=== PATIENT | female | born 1960 | race Caucasian/White ===

== ENCOUNTER → 2019-11-07 09:53 | Outpatient (BNVA) | payer BC, SELFPAY | PROVIDERS: Family Provider Electrodiagnostic Medicine; PCP Electrodiagnostic Medicine; Referring Provider Internal Medicine Rheumatology; Visit Provider Internal Medicine Rheumatology | DX: M05.79 Rheumatoid arthritis with rheumatoid factor of multiple sites without organ or systems involvement (principal) | CPT/HCPCS: 80053; 85025 ==

== ENCOUNTER 2019-12-19 13:53 | Outpatient (CLI) | payer BC, SELFPAY ==
--- NOTE | 2019-12-19 14:45 | XR_ITS ---
WS: [id number] SCREENING DEXA SCAN [employer] CLINICAL INFORMATION: post menopausal osteoporosis COMPARISON: FINDINGS: The L1-L4 bone mineral density measures 0.967 g/cm2. This corresponds to a T score score of -1.8 and Z score of -0.2. Left femoral neck bone mineral density measures 0.774 g/cm2. This corresponds to a T score of -1.9 an d Z score of -0.6. Right femoral neck bone mineral density measures 0.850 g/cm2. This corresponds to a T score -1.2of an d Z score of 0.0. Mean femoral neck bone mineral density measures 0.812 g/cm2. This corresponds to a T score of -1.5 an d Z score of -0.3. XR/XR DEXA axial skeleton* [id number] IMPRESSION: Osteopenia Patient's FRAX calculated 10 year probability for major osteoporotic fracture i s 11.2 % and osteoporotic hip fracture is 2.5%. Bone mineral density in the lumbar spine has decreased -10.3% and -3.4% in the femoral necks since 2016
== END 2019-12-19 13:54 | disposition home or self-care (01) ==
LOC: RADWPI 13:56
PROVIDERS: Family Provider Electrodiagnostic Medicine; PCP Electrodiagnostic Medicine; Visit Provider Internal Medicine Rheumatology
DX: M81.0 Age-related osteoporosis without current pathological fracture (principal)
CPT/HCPCS: 77080

== ENCOUNTER → 2019-12-26 11:33 | Outpatient (BNVA) | payer BC, SELFPAY | PROVIDERS: Family Provider Electrodiagnostic Medicine; PCP Electrodiagnostic Medicine; Referring Provider Internal Medicine Rheumatology; Visit Provider Internal Medicine Rheumatology | DX: M05.79 Rheumatoid arthritis with rheumatoid factor of multiple sites without organ or systems involvement (principal); R25.2 Cramp and spasm; Z79.899 Other long term (current) drug therapy; Z79.52 Long term (current) use of systemic steroids; M81.0 Age-related osteoporosis without current pathological fracture | CPT/HCPCS: 36415; 82310; 83735; 99214 ==

== ENCOUNTER → 2020-02-21 13:47 | Outpatient (BNVA) | payer BC, SELFPAY | PROVIDERS: Family Provider Electrodiagnostic Medicine; PCP Electrodiagnostic Medicine; Visit Provider Internal Medicine Rheumatology | DX: Z79.899 Other long term (current) drug therapy (principal); M05.9 Rheumatoid arthritis with rheumatoid factor, unspecified | CPT/HCPCS: 36415; 80076; 82565; 85025; 85651; 86140 ==

== ENCOUNTER → 2020-04-04 12:52 | Outpatient (BNVA) | payer BC, SELFPAY | PROVIDERS: Family Provider Electrodiagnostic Medicine; PCP Electrodiagnostic Medicine; Visit Provider Internal Medicine Rheumatology | DX: Z79.899 Other long term (current) drug therapy (principal) | CPT/HCPCS: 36415; 80076; 82565; 85025; 85651; 86140 ==

== ENCOUNTER → 2020-06-28 09:09 | Outpatient (BNVA) | payer BC, SELFPAY | PROVIDERS: Family Provider Electrodiagnostic Medicine; PCP Electrodiagnostic Medicine; Visit Provider Internal Medicine Rheumatology | DX: M05.79 Rheumatoid arthritis with rheumatoid factor of multiple sites without organ or systems involvement (principal); Z79.899 Other long term (current) drug therapy; M81.0 Age-related osteoporosis without current pathological fracture; F17.210 Nicotine dependence, cigarettes, uncomplicated | CPT/HCPCS: 99214 ==

== ENCOUNTER 2020-08-20 14:13 | Outpatient (CLI) | payer BC, SELFPAY ==
--- NOTE | 2020-08-20 14:20 | MM_ITS ---
WS: [id number] BILATERAL DIGITAL SCREENING MAMMOGRAM WITH CAD CLINICAL INFORMATION: SCREENING HISTORY: Screening mammogram. No current complaints. COMPARISON: September 08, 2018 TECHNIQUE: Bilateral CC and MLO views. FINDINGS: Fatty-replaced breasts bilaterally. No suspicious focal mass, asymmetry, calcifications, or information systems architect ural distortion. No evidence of malignancy. MM/[id number] IMPRESSION: BI-RADS: 1-Negative FOLLOW UP: 1 Year Follow-up Recommend return to annual screening mammography.
== END 2020-08-20 14:14 | disposition home or self-care (01) ==
LOC: RADSHAW 14:18
PROVIDERS: PCP Electrodiagnostic Medicine; Visit Provider Electrodiagnostic Medicine
DX: Z12.31 Encounter for screening mammogram for malignant neoplasm of breast (principal)
CPT/HCPCS: 77067

== ENCOUNTER → 2020-08-28 09:01 | Outpatient (BNVA) | payer BC, SELFPAY | PROVIDERS: Family Provider Electrodiagnostic Medicine; PCP Electrodiagnostic Medicine; Visit Provider Internal Medicine Rheumatology | DX: Z79.899 Other long term (current) drug therapy (principal); Z11.1 Encounter for screening for respiratory tuberculosis | CPT/HCPCS: 36415; 80076; 82565; 85025; 85651; 86140; 86480 ==

== ENCOUNTER → 2020-10-03 08:50 | Outpatient (BNVA) | payer BC, SELFPAY | PROVIDERS: Family Provider Electrodiagnostic Medicine; PCP Electrodiagnostic Medicine; Visit Provider Internal Medicine Rheumatology | DX: M05.79 Rheumatoid arthritis with rheumatoid factor of multiple sites without organ or systems involvement (principal); M81.0 Age-related osteoporosis without current pathological fracture; Z79.899 Other long term (current) drug therapy; F17.210 Nicotine dependence, cigarettes, uncomplicated | CPT/HCPCS: 99214 ==

== ENCOUNTER → 2021-01-15 12:06 | Outpatient (BNVA) | payer OTHER, SELFPAY | PROVIDERS: Family Provider Electrodiagnostic Medicine; PCP Electrodiagnostic Medicine; Visit Provider Internal Medicine Rheumatology | DX: Z79.899 Other long term (current) drug therapy (principal) | CPT/HCPCS: 36415; 80076; 82565; 85025; 86140 ==

== ENCOUNTER → 2021-02-13 09:03 | Outpatient (BNVA) | payer OTHER, SELFPAY | PROVIDERS: Family Provider Electrodiagnostic Medicine; PCP Electrodiagnostic Medicine; Visit Provider Internal Medicine Rheumatology | DX: M05.79 Rheumatoid arthritis with rheumatoid factor of multiple sites without organ or systems involvement (principal); Z79.899 Other long term (current) drug therapy; M81.0 Age-related osteoporosis without current pathological fracture; F17.210 Nicotine dependence, cigarettes, uncomplicated | CPT/HCPCS: 99214 ==

== ENCOUNTER → 2021-05-28 09:22 | Outpatient (BNVA) | payer OTHER, SELFPAY | PROVIDERS: Family Provider Electrodiagnostic Medicine; PCP Electrodiagnostic Medicine; Visit Provider Internal Medicine Rheumatology | DX: M05.79 Rheumatoid arthritis with rheumatoid factor of multiple sites without organ or systems involvement (principal); Z79.899 Other long term (current) drug therapy | CPT/HCPCS: 36415; 80076; 82565; 85025; 86140 ==

== ENCOUNTER → 2021-06-04 08:49 | Outpatient (BNVA) | payer OTHER, SELFPAY | PROVIDERS: Family Provider Electrodiagnostic Medicine; PCP Electrodiagnostic Medicine; Visit Provider Internal Medicine Rheumatology | DX: M05.79 Rheumatoid arthritis with rheumatoid factor of multiple sites without organ or systems involvement (principal); M81.0 Age-related osteoporosis without current pathological fracture; Z79.899 Other long term (current) drug therapy; Z71.89 Other specified counseling; F17.210 Nicotine dependence, cigarettes, uncomplicated | CPT/HCPCS: 99214 ==

== ENCOUNTER → 2021-10-02 09:18 | Outpatient (BNVA) | payer OTHER, SELFPAY | PROVIDERS: Family Provider Electrodiagnostic Medicine; PCP Electrodiagnostic Medicine; Visit Provider Internal Medicine Rheumatology | DX: M05.79 Rheumatoid arthritis with rheumatoid factor of multiple sites without organ or systems involvement (principal); M19.90 Unspecified osteoarthritis, unspecified site; Z79.899 Other long term (current) drug therapy | CPT/HCPCS: 36415; 80076; 82565; 85025; 86140 ==

== ENCOUNTER 2021-10-09 14:24 | Outpatient (CLI) | payer OTHER, SELFPAY ==
--- NOTE | 2021-10-09 14:29 | MM_ITS ---
WS: [id number] BILATERAL DIGITAL SCREENING MAMMOGRAM WITH CAD CLINICAL INFORMATION: SCREENING HISTORY: Screening mammogram. No current complaints. COMPARISON: None. TECHNIQUE: Bilateral CC and MLO views. FINDINGS: Fatty-replaced breasts bilaterally. No suspicious focal mass, asymmetry, calcifications, or computer systems software architect ural distortion. No evidence of malignancy. MM/[id number] IMPRESSION: BI-RADS: 1-Negative FOLLOW UP: 1 Year Follow-up Recommend return to annual screening mammography.
== END 2021-10-09 14:25 | disposition home or self-care (01) ==
LOC: RADSHAW 14:27
PROVIDERS: PCP Electrodiagnostic Medicine; Visit Provider Electrodiagnostic Medicine
DX: Z12.31 Encounter for screening mammogram for malignant neoplasm of breast (principal)
CPT/HCPCS: 77067

== ENCOUNTER 2022-09-07 08:11 | Emergency (ER) | payer OTHER, SELFPAY ==
[2022-09-07 08:21] VITALS: BMI 21.6
[2022-09-07 08:25] VITALS: BP 139/65; PULSE 91; RESP 18; TEMP 36.8; O2SAT 97
--- NOTE | 2022-09-07 08:45 | W.ED.SKABFB ---
HPI - Skin/Abscess/Foreign Bdy General: Chief complaint: Skin/Abscess/Foreign Body Stated complaint: back of Head sore, weakness, hx of RA Time Seen by Provider: 09/07/22 08:28 Source: patient Mode of arrival: ambulatory Limitations: no limitations History of Present Illness: 62-year-old female presents to the ER today for painful rash on her face and in her hair on the right side times several days. Patient reports she started getting soreness on the right side of her head about a week or so ago. She noticed what she thought were bites that appeared on Thursday. Patient reports she was then seen at an urgent care and given a steroid shot yesterday. Patient reports she had no improvement in her symptoms. Patient reports she has significant tenderness in her face and behind her right ear. She reports her scalp hurts. She reports she is got several new lesions. Patient reports a history of RA and thought maybe this was an RA flareup. She reports she has had her shingles vaccine but does take Humira and was told she is more prone to things like that. Patient reports no fever or chills. Denies any recent illnesses. Review of Systems General: Reports: 10 or more systems reviewed and unremarkable except in HPI and below PFSH ED PFSH: Medical History High risk medication use Immunization counseling Leg cramps Osteoporosis Other detention (current) drug therapy Rheumatoid arthritis with rheumatoid factor Seropositive rheumatoid arthritis of multiple sites Surgical History History of hysterectomy Family History Other Arthritis Denies family history of Rheumatoid arthritis Lupus Social History Smoking and tobacco status: never smoked History of recent travel: No Physical Exam Const: COMMON NORMALS: no acute distress, average body habitus, patient oriented x3, no limitations, healthy appearing, alert and well nourished HENMT: COMMON NORMALS: external ears normal, TM's normal bilaterally, Normal nasal mucous membranes and turbinates present and moist oral mucous membranes HEAD & SCALP: scalp lesion (Blisterlike lesion noted superior to the right ear on the scalp.) and scalp tenderness FACE & SINUS: erythema on the right and other (Vesicular lesions noted along the mandible on the right side and neck on th) NOSE: Normal nasal mucous membranes and turbinates present EXTERNAL EAR: Yes external ears normal TYMPANIC MEMBRANE: TM's normal bilaterally Lymph: LYMPHATIC: no lymphadenopathy noted Resp: COMMON NORMALS: normal respiratory effort EFFORT & INSPECTION: Yes able to speak in complete sentences Cardio: COMMON NORMALS: regular rate and regular rhythm RATE: regular rate RHYTHM: regular rhythm Extremity: COMMON NORMALS: normal to inspection and full ROM Neuro: COMMON NORMALS: patient oriented x3 SENSORIUM/ORIENTATION: Yes alert Psych: COMMON NORMALS: mental status grossly normal, Normal thought process present and cooperative THOUGHT PROCESS: Normal thought process present Skin: NARRATIVE SKIN EXAM: See head/face exam. Patient has vesicular lesions, some at different stages than others. Some are starting to scab over others are newer, tender, and open. Course ED course: Patient presents for a painful rash on the right side of her head for the last several days. Patient reports pain started up to a week or so ago. Patient appears to have lesions on the right side of the face and into the right side of the scalp. Patient also has several lesions on the neck and right shoulder. Rash is consistent with shingles. Vital Signs: Vital signs: Vital Signs Temperature 98.3 F 09/07/22 08:25 Pulse Rate 91 09/07/22 08:25 Respiratory Rate 18 09/07/22 08:25 Blood Pressure 139/65 09/07/22 08:25 Pulse Oximetry 97 09/07/22 08:25 Oxygen Delivery Me thod 09/07/22 08:25 MDM - Skin/Abscess/Foreign Bdy Medicial Decision Making Based on history and physical exam, patient appears to have a shingles outbreak. Patient has had the Shingrix shot however is on Humira and immunocompromised due to that. Patient's rash is consistent with a shingles rash along with the symptoms she is having of pain. Patient is outside the treatment window for acyclovir or any antivirals at this time. She has had the rash more than 4 days and the pain up to a week. We will go ahead and try to treat the pain with gabapentin as patient does appear uncomfortable. Patient was also given a steroid shot at urgent care. I discussed the course and duration of this virus with patient. I would recommend she follow-up with her PCP this week sometime. For worsening symptoms return to the ER. I did discuss with patient that if this goes to the ear or eyes she deftly needs to follow-up with primary care. Patient verbalized understanding and was in agreement with the treatment plan. Critical Care Time Critical Care Time: Critical Care Time: No Discharge Plan Discharge Patient Disposition: Home Clinical Impression: Shingles rash Qualifiers: Herpes zoster complications: without complications Qualified Code(s): B02.9 - Zoster without complications Condition: Stable Prescriptions: New gabapentin 100 mg capsule 100 mg PO Q8H 14 Days Qty: 42 0RF No Action Restasis MultiDose 0.05 % drops 1 drop ophthalmic (eye) Q12H citalopram 10 mg tablet 10 mg PO DAILY alprazolam 0.25 mg tablet 0.25 mg PO TID cholecalciferol (vitamin D3) 50 mcg (2,000 unit) capsule 50 mcg PO DAILY Qty: 30 3RF methotrexate sodium 2.5 mg tablet 10 mg PO .weekly Qty: 20 3RF prednisone 10 mg tablet See Rx Instructions PO .COMPLEX PRN (Reason: joint pain) Qty: 30 1RF Rx Instructions: take 1 tab daily for 3-7 days prn RA flare PO PRN; Humira Pen 40 mg/0.8 mL pen injector kit 40 mg SUBCUT Q14D Qty: 2 3RF folic acid 1 mg tablet 3 mg PO DAILY Qty: 90 3RF Magic Mouthwash PO Rx Instructions: take 1-2 tsp orally and swish and spit prn QID Sent to [facility] Discharge Orders: Discharge ED (Routine); Ordered 09/07/22 Ordered By: Azucena Oh Referrals: Cipriano Allred DO [Primary Care Provider] - Discharge Diet: Usual diet Discharge Activity: Resume usual activity Patient Instructions: Opioid Safety, Pain Management Activity Restrictions/Additional Instructions: Take gabapentin as prescribed. Okay to continue home medications. Okay to use cream given at home but do not use on face. Follow-up with PCP in 5 to 7 days if no improvement. Return to the ER with new or worsening symptoms. Coding Level of Care Code ED Therapeutic Riding Instructor for Analy Valdez
[2022-09-07 08:57] VITALS: BP 125/66; PULSE 84; RESP 18; TEMP 36.8; O2SAT 97
== END 2022-09-07 09:00 | disposition home or self-care (01) ==
PROVIDERS: Emergency Provider Physician Assistant; PCP Electrodiagnostic Medicine
DX: B02.9 Zoster without complications (principal); Z79.899 Other long term (current) drug therapy; M06.9 Rheumatoid arthritis, unspecified; D84.821 Immunodeficiency due to drugs; Z79.69 Long term (current) use of other immunomodulators and immunosuppressants; Z79.82 Long term (current) use of aspirin
CPT/HCPCS: 99283

== ENCOUNTER → 2022-11-10 12:23 | Outpatient (BNVA) | payer OTHER, SELFPAY | PROVIDERS: PCP Electrodiagnostic Medicine; Visit Provider Internal Medicine Rheumatology | DX: Z79.899 Other long term (current) drug therapy (principal); M05.9 Rheumatoid arthritis with rheumatoid factor, unspecified; M05.79 Rheumatoid arthritis with rheumatoid factor of multiple sites without organ or systems involvement; M81.0 Age-related osteoporosis without current pathological fracture; Z71.89 Other specified counseling; M19.90 Unspecified osteoarthritis, unspecified site | CPT/HCPCS: 36415; 80076; 82565; 85025; 86140 ==

== ENCOUNTER → 2023-02-10 13:36 | Outpatient (BNVA) | payer OTHER, SELFPAY | PROVIDERS: PCP Electrodiagnostic Medicine; Visit Provider Internal Medicine Rheumatology | DX: Z79.899 Other long term (current) drug therapy (principal); M05.79 Rheumatoid arthritis with rheumatoid factor of multiple sites without organ or systems involvement | CPT/HCPCS: 36415; 85025 ==

== ENCOUNTER → 2023-05-12 13:47 | Outpatient (BNVA) | payer MEDICARE, OTHER, SELFPAY | PROVIDERS: PCP Electrodiagnostic Medicine; Visit Provider Internal Medicine Rheumatology | DX: M05.79 Rheumatoid arthritis with rheumatoid factor of multiple sites without organ or systems involvement (principal); Z79.899 Other long term (current) drug therapy; M81.0 Age-related osteoporosis without current pathological fracture; Z71.89 Other specified counseling | CPT/HCPCS: 36415; 80076; 82565; 85025; 86140; 99214 ==

== ENCOUNTER → 2023-06-19 10:06 | Outpatient (BNVA) | payer MEDICARE, OTHER, SELFPAY | PROVIDERS: PCP Electrodiagnostic Medicine; Visit Provider Nurse Practitioner Family | DX: M06.9 Rheumatoid arthritis, unspecified (principal); F42.4 Excoriation (skin-picking) disorder; D22.5 Melanocytic nevi of trunk | CPT/HCPCS: 99214 ==

== ENCOUNTER → 2023-07-30 10:25 | Outpatient (BNVA) | payer MEDICARE, OTHER, SELFPAY | PROVIDERS: PCP Electrodiagnostic Medicine; Visit Provider Registered Nurse Neonatal Intensive Care | DX: R05.9 Cough, unspecified (principal); J06.9 Acute upper respiratory infection, unspecified | CPT/HCPCS: 87400; 87426 ==

== ENCOUNTER → 2023-08-11 13:37 | Outpatient (BNVA) | payer MEDICARE, OTHER, SELFPAY | PROVIDERS: PCP Electrodiagnostic Medicine; Visit Provider Internal Medicine Rheumatology | DX: Z79.899 Other long term (current) drug therapy (principal); M05.79 Rheumatoid arthritis with rheumatoid factor of multiple sites without organ or systems involvement; M81.0 Age-related osteoporosis without current pathological fracture; Z71.89 Other specified counseling | CPT/HCPCS: 99214 ==

== ENCOUNTER 2023-08-31 14:09 | Outpatient (CLI) | payer MEDICARE, OTHER, SELFPAY ==
--- NOTE | 2023-08-31 14:22 | XR_ITS ---
WS: [id number] DEXA (DUAL ENERGY X-RAY ABSORPTIOMETRY) Bone mineral density was performed using a [employer] machine. HISTORY: Postmenopausal COMPARISON: 12/19/2019 Lumbar spine BMD (L1-L4): 1.040 g/cm2 T score: -1.2 Z score: 0.1 Total hip BMD: Left: 0.772 g/cm2. T score: -1.9 Z score: -0.9 Right: 0.849 g/cm2. T score: -1.3 Z score: -0.3 10 year probability of a major osteoporotic fracture is 13.7%. Compared to the prior study from 12/19/2019. Lumbar spine bone mineral density has increased by 7.5%. Bilateral hips bone mineral density has decreased by 0.3%. Slight increase in the LEFT curvature lumbar spine. IMPRESSION: OSTEOPENIA based upon the WHO classification for females. Significant increase in bone mineral density within the lumbar spine. This may be falsely elevated du e to increasing sclerosis.
== END 2023-08-31 14:10 | disposition home or self-care (01) ==
LOC: RAD 14:09
PROVIDERS: PCP Electrodiagnostic Medicine; Visit Provider Electrodiagnostic Medicine
DX: Z78.0 Asymptomatic menopausal state (principal); M85.80 Other specified disorders of bone density and structure, unspecified site
CPT/HCPCS: 77080

== ENCOUNTER 2023-11-18 10:39 | Emergency (ER) | payer MEDICARE, OTHER, SELFPAY ==
[2023-11-18 10:44] VITALS: BP 119/74; PULSE 107; RESP 16; TEMP 37.1; O2SAT 97; BMI 25.0
[2023-11-18 10:59] LABS: Basophils % 0.1 %; Hematocrit 39.9 % (36-47); Lymphocytes # 1.5 10^3/uL (0.8-4.8); Lymphocytes % 9.4 %; Mean Corpuscular HGB Conc 33.8 g/dL (30-55); Mean Corpuscular Hemoglobin 32.1 pg (27-33); Mean Corpuscular Volume 94.8 fl (85-98); Mean Platelet Volume 10.2 fL (7.4-10.4); Monocytes # 1.5 10^3/uL (0.2-0.9); Monocytes % 9.2 %; Neutrophils # 13.24 10^3/uL (1.8-7.7); Nucleated Red Blood Cells % 0 %; Platelet Count 233 10^3/cmm (157-399); Red Blood Count 4.21 10^6/uL (3.85-5.65); Red Cell Distribution Width 13.6 % (12.1-15.1); White Blood Count 16.36 10^3/uL (3.29-11.43)
[2023-11-18 11:14] LABS: Alanine Aminotransferase 39 U/L (0-33); Albumin Level 4.2 g/dL (3.5-5.2); Alkaline Phosphatase 86 U/L (35-105); Anion Gap 18.9 (5-19); Aspartate Amino Transferase 25 U/L (0-32); Carbon Dioxide 24 mmol/L (22-29); Chloride 95 mmol/L (98-107); Globulin 4.1 g/dL (1.3-4.6); Glucose 133 mg/dL (65-115); Lipase 21 U/L (13-60); Potassium 3.9 mmol/L (3.5-5.1); Sodium 134 mmol/L (136-145); Total Protein 8.3 g/dL (6.6-8.7)
--- NOTE | 2023-11-18 11:26 | CT_ITS ---
WS: [id number] CT ABDOMEN AND PELVIS WITH CONTRAST HISTORY: Right-sided abdominal pain for 2 days. TECHNIQUE: Imaging performed of the abdomen and pelvis with IV contrast. Single phase imaging of the abdomen. Coronal and sagittal reformats are submitted. All CT scans at [facility] use at [address] one of these dose optimization techniques: automated exposure control; mA and/or kV adjustment per patient size (includes targeted exams where dose is matched to clinical indication); or iterative re construction. IV CONTRAST: Omnipaque 350; 100 mL IV. Oral contrast: No DLP: 553.58 mGy.cm COMPARISON: None available. Lower thorax: Dependent changes and atelectasis at the lung bases. More focal increased opacification at the RIGHT lung base suspicious for developing pneumonia. Normal size heart. There is a very tiny pericardial effusion. Small hiatal hernia. Liver/biliary system: Normal size with no intrahepatic dilatation. Gallbladder: Normal. No gallstones or wall thickening. No pericholecystic fluid. Pancreas: Small pancreas. The tail is atrophic. No duct dilatation. This is probably normal variation . Spleen: Normal size spleen. No mass or infarct. Adrenal glands: Normal. Right kidney: No obstruction or solid mass. Too small to characterize hypodensity in the lower pole. Left kidney: Normal. Aorta: Mild atherosclerosis with no aneurysm. Lymphadenopathy: None. Free fluid: None. GI tract: Normal stomach and small bowel. Normal appendix. Mild diffuse constipation. There are a few scattered distal colonic diverticula. No evidence for acute diverticulitis. Abdominal wall: Unremarkable abdominal wall. No hernia. Pelvis: Prior hysterectomy. No adenopathy and no free fluid. Bones: Unremarkable. IMPRESSION: 1. Normal appendix. 2. No renal obstruction or perinephric stranding. 3. RIGHT basilar consolidation. Pneumonitis versus pneumonia. 4. Negative gallbladder. No bile duct dilatation. 5. Mild sigmoid diverticulosis without acute diverticulitis.
[2023-11-18 11:27] LABS: Blood Urea Nitrogen 13 mg/dL (8-23); Calcium 9.3 mg/dL (8.5-10.5); Osmolality Calculated 280 mOsm/kg (285-295); Total Bilirubin 0.6 mg/dL (0.15-1.2)
--- NOTE | 2023-11-18 11:44 | W.ED.ABDPA2 ---
HPI - Abdominal Pain General: Chief Complaint: Abdominal Pain Stated Complaint: right abd pain Time Seen by Provider: 11/18/23 11:24 Source: patient Mode of arrival: ambulatory Limitations: no limitations History of Present Illness: 63-year-old female who states she has been having right sided abdominal pain right flank pain it has been going on the last 2 days she states that she does have a history of RA and she has been sore all over as well she rates her abdominal pain a 6 out of 10 she denies any vomiting diarrhea or fevers. Denies any worsening proving factors. Associated Symptoms: Denies chills, diarrhea, dysuria, fever(s), nausea and vomiting Review of Systems Const: Denies: fever(s), chills, body aches or change in appetite ENMT: Denies: throat pain or dental pain Card: Denies: chest pain Resp: Denies: dyspnea GI: Reports: abdominal pain; Denies: nausea, vomiting or diarrhea : Reports: flank pain; Denies: dysuria Musc: Denies: neck pain or back pain Skin/Breast: Denies: rash Neuro: Denies: headache(s) PFSH ED PFSH: Medical History COVID-19 vaccine administered High risk medication use Immunization counseling Leg cramps Osteoporosis Other senior care (current) drug therapy Rheumatoid arthritis with rheumatoid factor Seropositive rheumatoid arthritis of multiple sites Surgical History History of hysterectomy Family History Other Arthritis Denies family history of Rheumatoid arthritis Lupus Social History Smoking and tobacco/nicotine status: never used tobacco/nicotine Physical Exam Const: COMMON NORMALS: no acute distress, patient oriented x3 and healthy appearing HENMT: COMMON NORMALS: normocephalic and atraumatic HEAD & SCALP: normocephalic and atraumatic Eye: COMMON NORMALS: Equal, round and reactive pupils present and EOMs intact bilaterally PUPIL: Yes Equal, round and reactive pupils present Neck/C-Spine: COMMON NORMALS: full ROM and supple Chest: COMMONS NORMALS: normal inspection of the chest and normal palpation of entire chest wall Resp: COMMON NORMALS: normal respiratory effort, No retractions, No use of accessory muscles and clear to auscultation bilaterally AUSCULTATION: clear to auscultation bilaterally Cardio: COMMON NORMALS: regular rate, regular rhythm and No murmurs present (Cardio) RATE: regular rate RHYTHM: regular rhythm GI: COMMON NORMALS: Normal to inspection, nondistended, normoactive bowel sounds present, Soft to palpation, non-tender and no masses PALPATION: Yes Soft to palpation Extremity: COMMON NORMALS: normal to inspection and full ROM Neuro: COMMON NORMALS: patient oriented x3, moves all extremities and no focal motor deficits Psych: COMMON NORMALS: mental status grossly normal, Normal thought process present and cooperative THOUGHT PROCESS: Normal thought process present Skin: COMMON NORMALS: no rashes or lesions noted and no wounds GENERAL SKIN EXAM: no rashes or lesions noted Course Vital Signs: Vital signs: Vital Signs Temperature 98.7 F 11/18/23 10:44 Pulse Rate 112 H 11/18/23 11:58 Respiratory Rate 30 H 11/18/23 11:58 Blood Pressure 132/85 11/18/23 11:58 Pulse Oximetry 95 11/18/23 11:58 Oxygen Delivery Me thod Room Air 11/18/23 11:58 MDM - Abdominal Pain Medical Decision Making Patient presents here with right flank pain. She is also had a slight cough she does have a right lower lobe pneumonia is actually probably causing her right-sided flank pain. She is in no distress here she is not hypoxic believe be able to treat with oral meds at home. Did inform her if she has any worsening symptoms she is to return she understands agrees to plan. Medical Records I reviewed the patient's medical records. Lab Data I reviewed the patient's lab results. 11/18/23 10:54 11/18/23 10:54 Labs/Radiology: Laboratory Results WBC 16.36 10^3/uL (3.29-11.43) H 11/18/23 10:54 RBC 4.21 10^6/uL (3.85-5.65) 11/18/23 10:54 Hgb 13.50 g/dL (11.27-16.99) 11/18/23 10:54 Hct 39.9 % (36-47) 11/18/23 10:54 MCV 94.8 fl (85-98) 11/18/23 10:54 MCH 32.1 pg (27-33) 11/18/23 10:54 MCHC 33.8 g/dL (30-55) 11/18/23 10:54 RDW 13.6 % (12.1-15.1) 11/18/23 10:54 Plt Count 233 10^3/cmm (157-399) 11/18/23 10:54 MPV 10.2 fL (7.4-10.4) 11/18/23 10:54 Neut % (Auto) 81.0 % 11/18/23 10:54 Lymph % (Auto) 9.4 % 11/18/23 10:54 [place] % (Auto) 9.2 % 11/18/23 10:54 Eos % (Auto) 0.0 % 11/18/23 10:54 Baso % (Auto) 0.1 % 11/18/23 10:54 Neut # (Auto) 13.24 10^3/uL (1.8-7.7) H 11/18/23 10:54 Lymph # (Auto) 1.5 10^3/uL (0.8-4.8) 11/18/23 10:54 [place] # (Auto) 1.5 10^3/uL (0.2-0.9) H 11/18/23 10:54 Eos # (Auto) 0.0 10^3/uL (0.0-0.8) 11/18/23 10:54 Baso # (Auto) 0.0 10^3/uL (0.0-0.1) 11/18/23 10:54 Nucleated RBC % (auto) 0 % 11/18/23 10:54 Nucleated RBCs # 0.0 /100WBC 11/18/23 10:54 Sodium 134 mmol/L (136-145) L 11/18/23 10:54 Potassium 3.9 mmol/L (3.5-5.1) 11/18/23 10:54 Chloride 95 mmol/L (98-107) L 11/18/23 10:54 Carbon Dioxide 24 mmol/L (22-29) 11/18/23 10:54 Anion Gap 18.9 (5-19) 11/18/23 10:54 BUN 13 mg/dL (8-23) 11/18/23 10:54 Creatinine 0.8 mg/dL (0.5-0.9) 11/18/23 10:54 GFR Calculation 72.0 mL/min (90-130) L 11/18/23 10:54 Glucose 133 mg/dL (65-115) H 11/18/23 10:54 Calculated Osmolality 280 mOsm/kg (285-295) L 11/18/23 10:54 Calcium 9.3 mg/dL (8.5-10.5) 11/18/23 10:54 Total Bilirubin 0.6 mg/dL (0.15-1.2) 11/18/23 10:54 AST 25 U/L (0-32) 11/18/23 10:54 ALT 39 U/L (0-33) H 11/18/23 10:54 Alkaline Phosphatase 86 U/L (35-105) 11/18/23 10:54 Total Protein 8.3 g/dL (6.6-8.7) 11/18/23 10:54 Albumin 4.2 g/dL (3.5-5.2) 11/18/23 10:54 Globulin 4.1 g/dL (1.3-4.6) 11/18/23 10:54 Lipase 21 U/L (13-60) 11/18/23 10:54 Urine Color Light yellow (Yellow) 11/18/23 12:38 Urine Appearance Sl hazy (CLEAR) A 11/18/23 12:38 Urine pH 8 (5-7) H 11/18/23 12:38 Ur Specific [place] 1.005 (1.005-1.030) 11/18/23 12:38 Urine Protein 1+ (Negative) H 11/18/23 12:38 Urine Glucose (UA) Norm (Normal) 11/18/23 12:38 Urine Ketones Negative (Negative) 11/18/23 12:38 Urine Blood 2+ (Negative) H 11/18/23 12:38 Urine Nitrate Negative (Negative) 11/18/23 12:38 Urine Bilirubin Neg (Negative) 11/18/23 12:38 Prot Sulfosalicylic Acd Negative (Negative) 11/18/23 12:38 Urine Urobilinogen 1 mg/dL (Negative) H 11/18/23 12:38 Ur Leukocyte Esterase Trace (Negative) H 11/18/23 12:38 Urine RBC 0-4 /hpf (0-2) H 11/18/23 12:38 Urine WBC 0-4 /hpf (0-5) H 11/18/23 12:38 Ur Squamous Epith Cells 0-4 /hpf (0-5) H 11/18/23 12:38 Amorphous Sediment Not Reportable 11/18/23 12:38 Urine Bacteria Trace /hpf (NONE) 11/18/23 12:38 No radiology studies performed this visit Discharge Plan Discharge Patient Disposition: Home Clinical Impression: Pneumonia Qualifiers: Pneumonia type: due to unspecified organism Laterality: right Lung location: lower lobe of lung Qualified Code(s): J18.9 - Pneumonia, unspecified organism Condition: Stable Prescriptions: New doxycycline hyclate 100 mg tablet 100 mg PO BID 7 Days Qty: 14 0RF No Action alprazolam 0.25 mg tablet 0.25 mg PO QAM triamcinolone acetonide 0.1 % ointment 1 applic topical BID Qty: 15 1RF Rx Instructions: Apply to affected areas twice daily, as needed. Humira Pen 40 mg/0.8 mL pen injector kit See Rx Instructions .ROUTE .COMPLEX Qty: 2 3RF Dose Instruction: INJECT 40 MG (0.8 ML) UNDER THE SKIN EVERY 14 DAYS Rx Instructions: INJECT 40 MG (0.8 ML) UNDER THE SKIN EVERY 14 DAYS folic acid 1 mg tablet 3 mg PO DAILY Qty: 90 3RF prednisone 10 mg tablet See Rx Instructions .ROUTE .COMPLEX Qty: 30 1RF Dose Instruction: Take ONE tablet by MOUTH daily FOR 3-7 DAYS need FOR joint pain AND ra flare Rx Instructions: Take ONE tablet by MOUTH daily FOR 3-7 DAYS need FOR joint pain AND ra flare multivitamin Tablet 1 tab PO DAILY atorvastatin 40 mg tablet 40 mg PO QPM leflunomide 10 mg tablet 10 mg PO DAILY Patient Comments: pt states she is unsure if she takes this medication ext shows last filled 08/03/23 30d/s Calcium + D 600 mg-5 mcg (200 unit) Tablet 1 tab PO DAILY Aspir-81 81 mg Tablet,Delayed Release (Dr/Ec) 81 mg PO QAM citalopram 20 mg tablet 20 mg PO QAM Vitamin C 500 mg Tablet 500 mg PO DAILY Refresh 1 % Drops, Liquid Gel 2 drp OPHTHALMIC (EYE) BID PRN (Reason: unknown) methotrexate sodium 2.5 mg tablet 10 mg PO Q7D Rx Instructions: on thu cholecalciferol (vitamin D3) 50 mcg (2,000 unit) capsule 50 mcg PO DAILY Discharge Orders: Discharge ED (Routine); Ordered 11/18/23 Ordered By: Kyler Adam Referrals: Cipriano Allred DO [Primary Care Provider] - 4-7 days Discharge Diet: Advance as tolerated Discharge Activity: Resume usual activity Patient Instructions: Pneumonia (ED) Coding Level of Care Code ED Marriage And Family Counselor for Analy Valdez
[2023-11-18 11:51] VITALS: RESP 16; O2SAT 95
[2023-11-18] MEDS: sodium chloride 0.9% 1,000 ML 999 ML IV (11:51)
[2023-11-18] MEDS: morphine 4 mg/mL SDV 1 mL IVP (11:51)
[2023-11-18] MEDS: ondansetron 2 mg/ML SDV 2 mL 4 MG IVP (11:51)
[2023-11-18 11:58] VITALS: BP 132/85; PULSE 112; RESP 30; O2SAT 95
[2023-11-18] MEDS: iohexol 350 mg/mL 500 mL Btl (per mL) IV (12:12)
--- NOTE | 2023-11-18 12:38 | PC.PHAR ---
pt states she takes care of her own medications-pt states she is unsure if she is taking leflunomide 10mg daily ext shows last filled 08/03/23 30d/s-pt states the company sends her the humira injection she takes -
--- NOTE | 2023-11-18 12:49 | XR_ITS ---
WS: [id number] Exam: XR chest 1V portable [id number] Date/Time of Exam: 11/18/2023 12:49 PM Reason For Exam: pain Comparison 03/29/2014. There is infiltrate in the RIGHT lower lobe. LEFT lung is clear. No pneumothorax or pleural effusion. Normal cardiomediastinal silhouette. Mild dextroscoliosis of the lower T-spine. IMPRESSION: 1. Infiltrate and atelectasis in the RIGHT lower lobe.
[2023-11-18 13:10] LABS: Add Urine Microscopic? YES; Bacteria Urine TRACE /hpf; Bilirubin Urine Neg (Negative); Blood Urine 2+ (Negative); Glucose Urine UA Norm (Normal); Ketones Urine Negative (Negative); Leukocyte Esterase Urine Trace (Negative); Nitrate Urine Negative (Negative); Protein Urine 1+ (Negative); RBC Urine 0-4 /hpf (0-2); Specific Gravity, Urine 1.005 (1.005-1.030); Squamous Epithelial Cell Urine 0-4 /hpf (0-5); Sulfosalicylic Acid Urine Negative (Negative); Urine Appearance SL Hazy (CLEAR); Urine Color Light yellow (Yellow); Urobilinogen Urine 1 mg/dL (Negative); WBC Urine 0-4 /hpf (0-5); pH Urine 8 (5-7)
[2023-11-18] MEDS: HYDROcodone-acetaminophen 5-325 mg Tablet 1 TAB PO (13:49)
[2023-11-18] MEDS: doxycycline 100 mg Tablet PO (13:50)
[2023-11-18 13:51] VITALS: BP 107/67; PULSE 99; O2SAT 95
== END 2023-11-18 13:52 | disposition home or self-care (01) ==
PROVIDERS: Emergency Provider Emergency Medicine; PCP Electrodiagnostic Medicine
DX: J18.9 Pneumonia, unspecified organism (principal)
CPT/HCPCS: 36415; 71045; 74177; 80053; 81001; 83690; 85025; 96361; 96374; 96375; 99285; J2270; J2405; J7030; Q9967

== ENCOUNTER 2023-11-27 16:10 | Inpatient (IN) | payer MEDICARE, OTHER, SELFPAY ==
[2023-11-27] VITALS (7 sets, daily range): BP systolic 102–157; BP diastolic 57–74; PULSE 88–115; RESP 16–24; TEMP 36.8–37.1; O2SAT 90–95
--- NOTE | 2023-11-27 16:39 | XRR_ITS ---
PROCEDURE INFORMATION: Exam: XR Chest Exam date and time: 11/27/2023 5:34 PM Age: 63 years old Clinical indication: Shortness of breath; Additional info: SOB TECHNIQUE: Imaging protocol: Radiologic exam of the chest. Views: 1 view. COMPARISON: CR XR chest 1V portable [id number] 18/11/2023 12:57 FINDINGS: Lungs: Increased atelectasis/consolidation in the right lung base. Mild atelectasis in the left base. The lungs are otherwise clear. Pleural spaces: Significantly increased moderate to large right pleural effusion. No pneumothorax. Heart/Mediastinum: Unremarkable. No cardiomegaly. Bones/joints: Unremarkable. XR/XR chest 1V portable [id number] IMPRESSION: 1. Increased right pleural effusion and basilar consolidation.
--- NOTE | 2023-11-27 17:30 | USR_ITS ---
PROCEDURE INFORMATION: Exam: US Abdomen, Limited; Right Upper Quadrant Exam date and time: 11/27/2023 6:28 PM Age: 63 years old Clinical indication: Abdominal pain; Generalized; Additional info: Ruq pain TECHNIQUE: Imaging protocol: Real time ultrasound of the abdomen with image documentation. Limited exam focused on the right upper quadrant. COMPARISON: CT abdomen pelvis w con* [id number] 18/11/2023 11:58 FINDINGS: Pleural spaces: Moderate-large right pleural effusion. Liver: Diffuse mild increased echogenicity of the liver which measures 16.0 cm in length. Gallbladder: Normal. No gallstones. There is no gallbladder wall thickening. Biliary ducts: Normal. No stones. No dilation. Pancreas: Visualized pancreas is unremarkable. Right kidney: Normal. No mass. No hydronephrosis. Intraperitoneal space: No ascites. US/US gall bladder [id number] IMPRESSION: 1. Normal gallbladder. 2. Increased echogenicity of the liver could represent fatty infiltration or parenchymal disease. 3. Moderate-large right pleural effusion.
--- NOTE | 2023-11-27 17:32 | ED_ITS ---
HPI - Abdominal Pain 2 General: Chief Complaint: Abdominal Pain Stated Complaint: Abd pain Time Seen by Provider: 11/27/23 17:27 Source: patient Mode of arrival: ambulatory Limitations: no limitations History of Present Illness: 63-year-old female who was seen here 10 days ago she was diagnosed with pneumonia still having abdominal pain at that time as well her CT at that time showed no acute abdominal findings she is finished antibiotics states she still has right-sided abdominal pain she has had decreased appetite she had nausea she denies any vomiting. 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 High risk medication use Immunization counseling Rheumatoid arthritis with rheumatoid factor Leg cramps Surgical History History of hysterectomy Family History Other Arthritis Denies family history of Rheumatoid arthritis Lupus Social History Smoking and tobacco/nicotine status: never used tobacco/nicotine Physical Exam 2 Const: COMMON NORMALS: no acute distress, patient oriented x3 and healthy appearing HENMT: COMMON NORMALS: normocephalic and atraumatic HEAD & SCALP: n ormocephalic and atraumatic Eye: COMMON NORMALS: Equal, round and reactive pupils present and EOMs intact bilaterally PUPIL: Yes Equal, round and reactive pupils present Neck/C-Spine: COMMON NORMALS: full ROM and supple Chest: COMMONS NORMALS: normal inspection of the chest Resp: COMMON NORMALS: normal respiratory effort, No retractions, No use of accessory muscles and clear to auscultation bilaterally AUSCULTATION: clear to auscultation bilaterally Cardio: COMMON NORMALS: regular rate, regular rhythm and No murmurs present (Cardio) RATE: regular rate RHYTHM: regular rhythm GI: COMMON NORMALS: Normal to inspection, nondistended, normoactive bowel sounds present, Soft to palpation, non-tender and no masses PALPATION: Yes Soft to palpation Extremity: COMMON NORMALS: normal to inspection and full ROM Neuro: COMMON NORMALS: patient oriented x3, moves all extremities and no focal motor deficits Psych: COMMON NORMALS: mental status grossly normal Skin: COMMON NORMALS: no rashes or lesions noted and no wounds GENERAL SKIN EXAM: no rashes or lesions noted Course 2 Vital Signs: Vital signs: Vital Signs Temperature 98.2 F 11/27/23 16:22 Pulse Rate 99 11/27/23 16:22 Respiratory Rate 16 11/27/23 16:22 Blood Pressure 103/69 11/27/23 16:22 Pulse Oximetry 93 11/27/23 16:22 MDM - Abdominal Pain Medical Decision Making Patient presents here with a right lower lobe pneumonia is likely causing her symptoms pneumonia is worsened from her previous x-ray she has failed outpatient antibiotics I spoke to the hospitalist will admit at this time. Medical Records I reviewed the patient's medical records. Lab Data I reviewed the patient's lab results. 11/27/23 17:30 11/27/23 17:30 Labs/Radiology: Laboratory Results WBC 12.81 10^3/uL (3.29-11.43) H 11/27/23 17:30 RBC 3.79 10^6/uL (3.85-5.65) L 11/27/23 17:30 Hgb 12.20 g/dL (11.27-16.99) 11/27/23 17:30 Hct 36.0 % (36-47) 11/27/23 17:30 MCV 95.0 fl (85-98) 11/27/23 17:30 MCH 32.2 pg (27-33) 11/27/23 17:30 MCHC 33.9 g/dL (30-55) 11/27/23 17:30 RDW 14.4 % (12.1-15.1) 11/27/23 17:30 Plt Count 495 10^3/cmm (157-399) H 11/27/23 17:30 MPV 9.1 fL (7.4-10.4) 11/27/23 17:30 Neut % (Auto) 69.2 % 11/27/23 17:30 Lymph % (Auto) 17.2 % 11/27/23 17:30 [place] % (Auto) 12.2 % 11/27/23 17:30 Eos % (Auto) 0.6 % 11/27/23 17:30 Baso % (Auto) 0.2 % 11/27/23 17:30 Neut # (Auto) 8.86 10^3/uL (1.8-7.7) H 11/27/23 17:30 Lymph # (Auto) 2.2 10^3/uL (0.8-4.8) 11/27/23 17:30 [place] # (Auto) 1.6 10^3/uL (0.2-0.9) H 11/27/23 17:30 Eos # (Auto) 0.1 10^3/uL (0.0-0.8) 11/27/23 17:30 Baso # (Auto) 0.0 10^3/uL (0.0-0.1) 11/27/23 17:30 Nucleated RBC % (auto) 0 % 11/27/23 17:30 Nucleated RBCs # 0.0 /100WBC 11/27/23 17:30 All radiology interpretation(s) finalized by discharge Discharge Plan Discharge Patient Disposition: Admitted As Inpatient Clinical Impression: Pneumonia Condition: Stable Prescriptions: No Action alprazolam 0.25 mg tablet 0.25 mg PO QAM triamcinolone acetonide 0.1 % ointment 1 applic topical BID Qty: 15 1RF Rx Instructions: Apply to affected areas twice daily, as needed. Humira Pen 40 mg/0.8 mL pen injector kit See Rx Instructions .ROUTE .COMPLEX Qty: 2 3RF Dose Instruction: INJECT 40 MG (0.8 ML) UNDER THE SKIN EVERY 14 DAYS Rx Instructions: INJECT 40 MG (0.8 ML) UNDER THE SKIN EVERY 14 DAYS folic acid 1 mg tablet 3 mg PO DAILY Qty: 90 3RF prednisone 10 mg tablet See Rx Instructions .ROUTE .COMPLEX Qty: 30 1RF Dose Instruction: Take ONE tablet by MOUTH daily FOR 3-7 DAYS need FOR joint pain AND ra flare Rx Instructions: Take ONE tablet by MOUTH daily FOR 3-7 DAYS need FOR joint pain AND ra flare multivitamin Tablet 1 tab PO DAILY atorvastatin 40 mg tablet 40 mg PO QPM leflunomide 10 mg tablet 10 mg PO DAILY Patient Comments: pt states she is unsure if she takes this medication ext shows last filled 08/03/23 30d/s Calcium + D 600 mg-5 mcg (200 unit) Tablet 1 tab PO DAILY Aspir-81 81 mg Tablet,Delayed Release (Dr/Ec) 81 mg PO QAM citalopram 20 mg tablet 20 mg PO QAM Vitamin C 500 mg Tablet 500 mg PO DAILY Refresh 1 % Drops, Liquid Gel 2 drp OPHTHALMIC (EYE) BID PRN (Reason: unknown) methotrexate sodium 2.5 mg tablet 10 mg PO Q7D Rx Instructions: on thu cholecalciferol (vitamin D3) 50 mcg (2,000 unit) capsule 50 mcg PO DAILY Referrals: Cipriano Allred DO [Primary Care Provider] - Coding Level of Care Code ED Visual Manager for [facility] [place]
[2023-11-27 17:45] LABS: Basophils % 0.2 %; Eosinophils # 0.1 10^3/uL (0.0-0.8); Eosinophils % 0.6 %; Lymphocytes # 2.2 10^3/uL (0.8-4.8); Lymphocytes % 17.2 %; Mean Corpuscular HGB Conc 33.9 g/dL (30-55); Mean Corpuscular Hemoglobin 32.2 pg (27-33); Mean Platelet Volume 9.1 fL (7.4-10.4); Monocytes # 1.6 10^3/uL (0.2-0.9); Monocytes % 12.2 %; Neutrophils # 8.86 10^3/uL (1.8-7.7); Neutrophils % 69.2 %; Nucleated Red Blood Cells % 0 %; Platelet Count 495 10^3/cmm (157-399); Red Blood Count 3.79 10^6/uL (3.85-5.65); Red Cell Distribution Width 14.4 % (12.1-15.1); White Blood Count 12.81 10^3/uL (3.29-11.43)
[2023-11-27 17:56] LABS: Alanine Aminotransferase 80 U/L (0-33); Albumin Level 3.3 g/dL (3.5-5.2); Alkaline Phosphatase 130 U/L (35-105); Anion Gap 15.7 (5-19); Aspartate Amino Transferase 45 U/L (0-32); Blood Urea Nitrogen 17 mg/dL (8-23); Calcium 8.9 mg/dL (8.5-10.5); Carbon Dioxide 24 mmol/L (22-29); Chloride 96 mmol/L (98-107); Globulin 4.4 g/dL (1.3-4.6); Glucose 103 mg/dL (65-115); Lipase 22 U/L (13-60); Osmolality Calculated 276 mOsm/kg (285-295); Potassium 3.7 mmol/L (3.5-5.1); Sodium 132 mmol/L (136-145); Total Bilirubin 0.6 mg/dL (0.15-1.2); Total Protein 7.7 g/dL (6.6-8.7)
[2023-11-27] MEDS: morphine 4 mg/mL SDV 1 mL IVP (17:59)
[2023-11-27] MEDS: ondansetron 2 mg/ML SDV 2 mL 4 MG IVP (17:59)
[2023-11-27] MEDS: cefTRIAXone 1,000 MG in sodium chloride 0.9% (plus) 50 ML 100 MG IV (18:00)
--- NOTE | 2023-11-27 18:12 | P.HP_ITS ---
Providers/Chief Complaint 2 Primary Care Provider: Cipriano Allred DO Chief Complaint: Abd pain History of Present Illness Ifrah Marin is a 63 year old female with past medical history of rheumatoid arthritis on methotrexate and leflunomide follows up with rheumatology, hyperlipidemia, hypertension, anxiety who presents to the ER for the second time in last 2 weeks. Patient was in the ER 10 days ago for difficulty in breathing and abdominal pain and CT abdomen pelvis was done and was negative for acute abnormality and was diagnosed of right lower lobe pneumonia and sent home on oral doxycycline for 7 days. Patient presents again to the ER from a primary's office where she had followed up for abdominal pain. She was sent to the ER for upper quadrant ultrasound. In the ER she was found to have worsening of pneumonia on chest x-ray along with mild difficulty in breathing so hospitalist service is requested. Review of Systems 2 General: Reports: 10 or more systems reviewed and unremarkable except in HPI and below Const: Denies: fever(s), chills, body aches, change in appetite, change in weight, malaise, night sweats, diaphoresis, change in sleep pattern, daytime sleepiness or snoring Eyes: Denies: change in vision, blurry vision, photophobia, eye discomfort or eye discharge ENMT: Denies: throat pain, enlarged tonsils, hoarseness, mouth pain, oral sores, dry mouth, tinnitus, nasal congestion or post nasal drip Card: Denies: chest pain, palpitations, irregular heart rhythm, edema, swelling of feet/ankles, lightheadedness, syncope, pre-syncope, dyspnea on exertion, orthopnea, leg pain with exertion or acrocyanosis Resp: Denies: dyspnea, productive cough, non-productive cough, wheezing, stridor, pain on inspiration, change in phlegm color, hemoptysis or chest congestion GI: Denies: abdominal pain, nausea, vomiting, hematemesis, coffee ground emesis, dysphagia, heartburn, diarrhea, constipation, bloating, GI cramping, change in bowel habits, pain on defecation, hematochezia or melena : Denies: flank pain, dysuria, urinary frequency, urinary urgency, urinary hesitancy, nocturia or hematuria Musc: Denies: neck pain, back pain, extremity pain, joint pain, joint swelling, joint redness, joint stiffness or limited range of motion Neuro: Denies: headache(s), numbness in extremities, weakness in extremities, sensory changes, lack of coordination, difficulty walking, frequent falls, dizziness, vertigo, confusion, Slurred speech present, difficulty communicating thoughts or seizure-like activity Psych: Denies: anxiety, depression, mood swings, panic attacks, hopelessness or irritability Endo: Denies: polyuria, polydipsia, tired all the time, cold intolerance, excessive sweating, flushing or heat intolerance Jose/Lymph: Denies: easy bruising or easy bleeding All/Imm: Denies: tongue swelling, facial swelling or acute wheezing Medications/Allergies Home Medications Medication Instructions Recorded Confirmed Last Taken Type alprazolam 0.25 mg tablet 0.25 mg PO QAM anxiety 06/28/20 11/28/23 11/27/23 History adalimumab 40 mg/0.8 mL See Rx Instructions .Route 08/11/23 11/28/23 11/16/23 Rx subcutaneous pen kit (Humira Pen) .COMPLEX #2 ea folic acid 1 mg tablet 3 mg (3 x 1 mg) PO DAILY #90 tabs 08/11/23 11/28/23 11/27/23 Rx prednisone 10 mg tablet See Rx Instructions .Route 10/06/23 11/28/23 Unknown Rx .COMPLEX #30 tabs ascorbic acid (vitamin C) 500 mg 500 mg PO DAILY 11/18/23 11/28/23 11/27/23 History tablet (Vitamin C) aspirin 81 mg tablet,delayed 81 mg PO QAM 11/18/23 11/28/23 11/27/23 History release atorvastatin 40 mg tablet 40 mg PO QPM 11/18/23 11/28/23 11/27/23 History calcium carbonate 600 mg-vitamin 1 tab PO DAILY 11/18/23 11/28/23 11/27/23 History D3 5 mcg (200 unit) tablet carboxymethylcellulose sodium 1 % 2 drp ophthalmic (eye) BID PRN 11/18/23 11/28/23 Unknown History eye liquid gel drops unknown cholecalciferol (vitamin D3) 50 50 mcg PO DAILY 11/18/23 11/28/23 11/27/23 History mcg (2,000 unit) capsule citalopram 20 mg tablet 20 mg PO QAM 11/18/23 11/28/23 11/27/23 History methotrexate sodium 2.5 mg tablet 10 mg PO Q7D 11/18/23 11/28/23 11/25/23 History multivitamin 1 tab PO DAILY 11/18/23 11/28/23 11/27/23 History doxycycline hyclate 100 mg tablet 100 mg PO BID 11/28/23 11/28/23 11/27/23 History hydrocortisone 2.5 % topical 1 applic topical BID PRN Rash 11/28/23 11/28/23 Unknown History ointment triamcinolone acetonide 0.1 % 1 applic topical BID PRN Rash 11/28/23 11/28/23 Unknown History topical ointment Allergies Allergy/AdvReac Type Severity Reaction Status Date / Time No Known Allergies Allergy Verified 11/18/23 12:38 PFSH Acute 2 PFSH: Medical History COVID-19 vaccine administered Seropositive rheumatoid arthritis of multiple sites Osteoporosis 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 High risk 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 use Immunization counseling Rheumatoid arthritis with rheumatoid factor Leg cramps Surgical History History of hysterectomy Family History Other Arthritis Denies family history of Rheumatoid arthritis Lupus Social History Smoking and tobacco/nicotine status: never used tobacco/nicotine Vitals/I&O/Wt Last Vital Signs Temp 98.2 F 11/27/23 16:22 Pulse 99 11/27/23 16:22 Resp 17 11/27/23 17:59 BP 103/69 11/27/23 16:22 Pulse Ox 95 11/27/23 17:59 Weight last 48 hrs Weight 75.75 kg Physical Exam 2 Narrative: General: No acute distress, AO x3 HEENT: PERRLA, pupils bilaterally equal and reactive Chest: Normal vesicular breath sounds, decreased air entry with mild rhonchi in right lower lobe CVS: S1-S2 regular, no murmurs, no tachycardia, no gallops, no rubs Abdomen: Soft, nontender, no organomegaly, bowel sounds present Neuro: No focal deficits, no facial deformity, AO x3, power 5/5 in all limbs Data 11/28/23 05:20 11/28/23 04:20 A&P Assessment and plan (1) Right lower lobe pneumonia: Failed outpatient treatment. Was in the ER around a week ago. Failed trial of doxycycline. Patient is immunocompromised because of treatment with leflunomide and methotrexate. As per chest x-ray it seems the patient has worsening of consolidation though not sure about his pneumonia versus pleural effusion. Patient does continue to have leukocytosis up to 12,000. Check sputum culture, blood culture, urine Legionella, bacterial antigen, MRSA swab, procalcitonin, D-dimer. If D-dimer is elevated we will plan for CTA versus CT chest. X-ray also concerning for right pleural effusion. Most likely Parapneumonic effusion but cannot rule out. Will plan for ultrasound-guided thoracentesis. For now empirically on treatment for community-acquired pneumonia with IV ceftriaxone and oral azithromycin. Oxygen supplementation keeping saturation over 90% DuoNebs every 6 hour, budesonide twice daily. IV Solu-Medrol 40 mg one-time. (2) Pleural effusion, right: As above. (3) Abdominal pain: Most likely in setting of right lower lobe pneumonia with parapneumonic effusion. If D-dimer is elevated could be in setting of pulmonary embolism. Unlikely abdominal pathology. Appreciate CT abdomen pelvis done few days ago. LFTs within normal limits. Protonix IV daily, Zofran as needed. (4) Seropositive rheumatoid arthritis of multiple sites: (5) High risk medication use: (6) Failure of outpatient treatment: Plan Full code Regular diet Protonix for PUD prophylaxis Heparin 5000 every 12 hourly for DVT prophylaxis. Attestations 2 Medical Necessity Statement*: Admission for more than 2 midnights for management of right lower lobe pneumonia with concerns for parapneumonic effusion while empyema is ruled out, pulmonary embolism rule out failure to outpatient treatment. Diagnoses Right lower lobe pneumonia J18.9 Pleural effusion, right J90 Abdominal pain R10.9 Seropositive rheumatoid arthritis of multiple sites M05.79 High risk medication use Z79.899 Failure of outpatient treatment Z78.9
[2023-11-27 18:23] LABS: Lactic Sepsis W/Reflex 1.8 mmol/L (0.5-2.2)
[2023-11-27 18:28] LABS: D Dimer 3.26 ug/mLFEU (0-0.59)
--- NOTE | 2023-11-27 18:43 | CTR_ITS ---
PROCEDURE INFORMATION: Exam: CTA Chest With Contrast Exam date and time: 11/27/2023 7:23 PM Age: 63 years old Clinical indication: Pain and abnormal findings; Abnormal diagnostic tests; Elevated d-dimer; Right-sided; Patient HX: RT sided chest discomfort. Dimer 3.2; Additional info: Right sided pna, with pain, high dimer TECHNIQUE: Imaging protocol: Computed tomographic angiography of the chest with contrast. Exam focused on the arteries. 3D rendering (Not supervised by radiologist): MIP and/or 3D reconstructed images were created by the technologist. Radiation optimization: All CT scans at this facility use at least one of these dose optimization techniques: automated exposure control; mA and/or kV adjustment per patient size (includes targeted exams where dose is matched to clinical indication); or iterative reconstruction. Contrast material: OMNI 350; Contrast volume: 52 ml; Contrast route: INTRAVENOUS (IV); COMPARISON: CR (CHEST, ) 27/11/2023 17:34 RADIATION DOSE METRICS: Total DLP (mGy-cm): 341.85 FINDINGS: Pulmonary arteries: Normal. No pulmonary emboli. Aorta: Unremarkable. No aortic aneurysm. No aortic dissection. Lungs: Near complete collapse of the right lower lobe with a small amount of aerated superior segment. Dependent atelectasis in the right upper and middle lobes. Paraseptal emphysema in the upper lobes. Mild atelectasis in the left lower lobe and lingula. Pleural spaces: Large right pleural effusion which appears semi loculated superiorly. Semi loculated appearing fluid in the right major fissure superiorly. No pneumothorax. Heart: Small pericardial effusion. The heart size is normal. Lymph nodes: Prominent mediastinal and hilar lymph nodes are most likely reactive. Diaphragm: Hiatal hernia. Bones/joints: Mild thoracic curvature and degenerative changes. No acute fracture. Soft tissues: Unremarkable. CT/CT angio chest PE protcl [id number] IMPRESSION: 1. No evidence for pulmonary embolus. 2. Large semi loculated right pleural effusion with extension into the major fissure. 3. Scattered atelectasis with near-complete collapse of the right lower lobe. No evidence of active pneumonia. COMMENTS: The presence of pulmonary emphysema on CT is an independent risk factor for lung cancer. In the absence of a history or active diagnosis of lung cancer, it is recommended that this patient with emphysema be evaluated for enrollment in a low dose CT lung cancer screening program.
[2023-11-27 18:53] LABS: Procalcitonin 0.13 ng/mL (0-0.5); Thyroid Stimulating Hormone 3.26 uIU/mL (0.27-4.20); Vitamin B12 627 pg/mL (232-1245)
[2023-11-27 19:05] LABS: Iron 16 ug/dL (37-145); Percent Saturation 8.1 % (20-50); Total Iron Binding Capacity 197 mcg/dl; Unsaturated Iron Binding 181 ug/dL (112-347)
[2023-11-27] MEDS: iohexol 350 mg/mL 500 mL Btl (per mL) IV (19:26)
--- NOTE | 2023-11-27 20:33 | PC.NURSE ---
Report was called to Hannah Ken RN on [place]. All questions and concerns were addressed at time of report.
[2023-11-27] MEDS: sodium chloride 0.9% 1,000 ML 75 ML IV (21:09)
[2023-11-27] MEDS: azithromycin 500 MG in sodium chloride 0.9% 250 ML 250 MG IV (21:12)
[2023-11-27] MEDS: methylPREDNISolone sod succ 125 mg/2 mL INJ 60 MG IVP (21:14)
[2023-11-27] MEDS: heparin 5,000 unit/mL INJ 1 mL 5000 UNIT SUBCUT (21:14)
[2023-11-27] MEDS: atorvastatin 40 mg Tablet PO (21:14)
[2023-11-27] MEDS: pantoprazole 40 mg SDV IVP (21:14)
[2023-11-27] MEDS: morphine 4 mg/mL SDV 1 mL 2 MG IVP (22:02)
[2023-11-27 22:14] LABS: Add Urine Microscopic? YES
[2023-11-27 22:15] LABS: Amorphous Sediment Urine 1+ /hpf; Bacteria Urine 1+ /hpf; Bilirubin Urine 1+ (Negative); Blood Urine 2+ (Negative); Glucose Urine UA Norm (Normal); Hyaline Casts Urine 0-4 /lpf; Ketones Urine 2+ (Negative); Leukocyte Esterase Urine 2+ (Negative); Mucus Urine TRACE /hpf; Nitrate Urine Positive (Negative); Protein Urine 1+ (Negative); RBC Urine 15-25 /hpf (0-2); Specific Gravity, Urine 1.005 (1.005-1.030); Squamous Epithelial Cell Urine 15-25 /hpf (0-5); Urine Appearance Cloudy (CLEAR); Urine Color Yellow (Yellow); Urobilinogen Urine Norm (Negative); WBC Urine 25-40 /hpf (0-5); pH Urine 5 (5-7)
[2023-11-28] VITALS (11 sets, daily range): BP systolic 99–116; BP diastolic 55–74; PULSE 77–95; RESP 16–18; TEMP 36.8–37.2; O2SAT 90–93
[2023-11-28] MEDS: morphine 4 mg/mL SDV 1 mL 2 MG IVP ×4 (04:51→18:05)
[2023-11-28 04:56] LABS: Estmated Average Glucose 111; Hemoglobin A1C 5.5 % (4.0-6.0)
[2023-11-28 05:03] LABS: Chol HDL Ratio 2.81 mg/dL (0.0-4.40); Cholesterol 104 mg/dL (0-200); HDL Cholesterol 37 mg/dL (60-100); LDL Cholesterol Calculated 53 mg/dL (50-129); LDL HDL Ratio 1.43 RATIO (0.00-3.22); Procalcitonin 0.07 ng/mL (0-0.5); Triglycerides 71 mg/dL (0-150)
[2023-11-28 05:04] LABS: Alanine Aminotransferase 64 U/L (0-33); Albumin Level 2.9 g/dL (3.5-5.2); Alkaline Phosphatase 114 U/L (35-105); Anion Gap 15.4 (5-19); Aspartate Amino Transferase 36 U/L (0-32); Blood Urea Nitrogen 12 mg/dL (8-23); Calcium 8.4 mg/dL (8.5-10.5); Carbon Dioxide 24 mmol/L (22-29); Chloride 104 mmol/L (98-107); Creatinine Clr Calc Pharmacy 71.2061; Globulin 3.8 g/dL (1.3-4.6); Glomerular Filtration Rate 123.8 mL/min (90-130); Glucose 117 mg/dL (65-115); Magnesium 1.8 mg/dL (1.7-2.3); Osmolality Calculated 289 mOsm/kg (285-295); Phosphorus 3.2 mg/dL (2.5-4.5); Potassium 4.4 mmol/L (3.5-5.1); Sodium 139 mmol/L (136-145); Total Bilirubin 0.4 mg/dL (0.15-1.2); Total Protein 6.7 g/dL (6.6-8.7)
[2023-11-28 05:13] LABS: Folate Level > 20.0 ng/mL (4.8-37.3)
[2023-11-28 05:24] LABS: Basophils % 0.1 %; Hematocrit 33.5 % (36-47); Lymphocytes # 1.1 10^3/uL (0.8-4.8); Lymphocytes % 9.3 %; Mean Corpuscular HGB Conc 32.8 g/dL (30-55); Mean Corpuscular Hemoglobin 31.6 pg (27-33); Mean Corpuscular Volume 96.3 fl (85-98); Mean Platelet Volume 10.9 fL (7.4-10.4); Monocytes # 0.2 10^3/uL (0.2-0.9); Neutrophils # 10.01 10^3/uL (1.8-7.7); Neutrophils % 88.2 %; Nucleated Red Blood Cells % 0 %; Platelet Count 179 10^3/cmm (157-399); Red Blood Count 3.48 10^6/uL (3.85-5.65); Red Cell Distribution Width 14.6 % (12.1-15.1); White Blood Count 11.35 10^3/uL (3.29-11.43)
[2023-11-28] MEDS: aspirin 81 mg EC Tablet PO (06:38)
[2023-11-28] MEDS: citalopram 20 mg Tablet PO (06:38)
[2023-11-28] MEDS: ALPRAZolam 0.5 mg Tablet 0.25 MG PO (06:39)
[2023-11-28] MEDS: heparin 5,000 unit/mL INJ 1 mL 5000 UNIT SUBCUT ×2 (10:12→21:41)
[2023-11-28] MEDS: sodium chloride 0.9% 1,000 ML 75 ML IV (10:13)
--- NOTE | 2023-11-28 12:46 | PC.CHAP ---
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 [] Patient/Family/Request visit [] Outpatient visit [] Follow-up visit [] Physician referral [] Code/Alert [x] Routine visit [] Staff referral [] Actively dying [] Patient sleeping [] Family support [] [] Out of room [] Palliative care [] [] Receiving care in room [] Pre-surgical visit [] Trauma [] Long length of stay [] ICU visit [] Other: Relational/Emotional Strength [x] Patient feels connected with others/family/visitors/staff [] Distress [] Loneliness/isolation [] Abandonment Spirituality of Patient [x] Person of Supriya [] Attends Buddhism of their Supriya [] Believes in Prayer [] Reads Bible or Pentecostal materials [] There are Spiritual issues to be addressed [place] Interventions [x] Prayer [] Active listening [] Non-anxious presence [] Spiritual/emotional support [] Crisis/trauma care [] Spiritual counseling [] Bereavement support [] Provided bereavement packet [] Provided Bible/devotional materials [] Provided toy/stuffed animal, coloring book to patient or family member [] Provided Communion [] Anointing/[place] [] Salvation [] Completed spiritual assessment [] Other: Impact on Illness or Injury [] Angry [] Fearful [] Anxious [] Often cries [] Exhaustion [] Unable to work [] Unable to attend yarsanism [] Unable to walk/stand [] Unable to read [] Unable to drive [] Unable to eat/drink [] Unable to sleep [] Unable to be with family [] Patient intubated [] Other: Summary prayed with patient Time spent with patient 5 min
--- NOTE | 2023-11-28 14:22 | P.PN_ITS ---
Subjective 2 Subjective: No acute events overnight. Patient states she is feeling a lot better. Has remained hemodynamically stable and afebrile. Saturating well on room air. Vitals/I&O/Wt Last Vital Signs Temp 98.3 F 11/28/23 12:00 Pulse 93 11/28/23 12:00 Resp 16 11/28/23 12:00 BP 99/55 11/28/23 12:00 Pulse Ox 92 11/28/23 12:00 O2 Del Method Room Air 11/28/23 09:12 11/27/23 11/28/23 11/28/23 22:59 06:59 14:59 Intake Total 300 / 300 1220 / 1220 Balance 300 / 300 1220 / 1220 Weight last 48 hrs Weight 75.013 kg Weight 75.342 kg Weight 75.342 kg Weight 75.75 kg Physical Exam 2 Narrative: General: No acute distress, AO x3 HEENT: PERRLA, pupils bilaterally equal and reactive Chest: Normal vesicular breath sounds, decreased air entry with mild rhonchi in right lower lobe CVS: S1-S2 regular, no murmurs, no tachycardia, no gallops, no rubs Abdomen: Soft, nontender, no organomegaly, bowel sounds present Neuro: No focal deficits, no facial deformity, AO x3, power 5/5 in all limbs Data 11/28/23 05:20 11/28/23 04:20 Micro: Microbiology 11/27/23 21:55 Bacterial Antigens - Final Urine Kidney 11/27/23 21:55 Legionella Urinary Antigen - Final Unknown Source A&P Assessment and plan (1) Right lower lobe pneumonia: Failed outpatient treatment. Was in the ER around a week ago. Failed trial of doxycycline. Patient is immunocompromised because of treatment with leflunomide and methotrexate. Sputum culture pending, urine Legionella, bacterial antigen negative, MRSA swab pending, procalcitonin and D-dimer negative. Blood cultures so far negative. Appreciate CT chest results with concerns for right lower lobe pleural effusion consistent with parapneumonic effusion. Given resolution of leukocytosis without any fevers is less concerns for empyema but patient would benefit from diagnostic versus therapeutic tap. Ultrasound-guided thoracentesis when available. Will plan for fluid studies to rule out empyema. Pneumonia for now less likely. Will continue with IV ceftriaxone for overall 5- day course. Continue with nebulization treatment with DuoNebs every 6 hour, Pulmicort twice daily. (2) Pleural effusion, right: As above. (3) Abdominal pain: Most likely in setting of loculated pleural effusion. Unlikely abdominal pathology. Appreciate CT abdomen pelvis done few days ago. LFTs within normal limits. Protonix IV daily, Zofran as needed. (4) Seropositive rheumatoid arthritis of multiple sites: (5) High risk medication use: (6) Failure of outpatient treatment: Plan Continue other chronic medications but will hold off on starting methotrexate and leflunomide. Full code Regular diet Protonix for PUD prophylaxis Heparin 5000 every 12 hourly for DVT prophylaxis. Attestations 2 Medical Necessity Statement*: Requires further hospitalization while empyema is ruled out in a patient with parapneumonic effusion, right lower lobe pneumonia leading to abdominal pain Diagnoses Right lower lobe pneumonia J18.9 Pleural effusion, right J90 Abdominal pain R10.9 Seropositive rheumatoid arthritis of multiple sites M05.79 High risk medication use Z79.899 Failure of outpatient treatment Z78.9
[2023-11-28] MEDS: atorvastatin 40 mg Tablet PO (17:18)
[2023-11-28] MEDS: cefTRIAXone 1,000 MG in sodium chloride 0.9% (plus) 50 ML 100 MG IV (17:18)
[2023-11-28] MEDS: pantoprazole 40 mg SDV IVP (21:41)
[2023-11-29] VITALS (13 sets, daily range): BP systolic 109–130; BP diastolic 63–81; PULSE 69–99; RESP 16–18; TEMP 36.4–37; O2SAT 90–96
[2023-11-29] MEDS: morphine 4 mg/mL SDV 1 mL 2 MG IVP ×2 (00:07→17:12)
[2023-11-29 04:37] LABS: Basophils % 0.1 %; Eosinophils # 0.1 10^3/uL (0.0-0.8); Hematocrit 31.6 % (36-47); Lymphocytes # 3.9 10^3/uL (0.8-4.8); Lymphocytes % 27.4 %; Mean Corpuscular Hemoglobin 31.3 pg (27-33); Mean Corpuscular Volume 97.8 fl (85-98); Mean Platelet Volume 9.4 fL (7.4-10.4); Monocytes # 1.3 10^3/uL (0.2-0.9); Monocytes % 9.4 %; Neutrophils # 8.64 10^3/uL (1.8-7.7); Neutrophils % 61.6 %; Nucleated Red Blood Cells % 0 %; Platelet Count 521 10^3/cmm (157-399); Red Blood Count 3.23 10^6/uL (3.85-5.65); Red Cell Distribution Width 14.7 % (12.1-15.1); White Blood Count 14.04 10^3/uL (3.29-11.43)
[2023-11-29 05:02] LABS: Alanine Aminotransferase 78 U/L (0-33); Albumin Level 2.5 g/dL (3.5-5.2); Alkaline Phosphatase 112 U/L (35-105); Anion Gap 12.8 (5-19); Aspartate Amino Transferase 51 U/L (0-32); Blood Urea Nitrogen 13 mg/dL (8-23); Carbon Dioxide 24 mmol/L (22-29); Chloride 108 mmol/L (98-107); Globulin 3.7 g/dL (1.3-4.6); Glomerular Filtration Rate 100.3 mL/min (90-130); Glucose 93 mg/dL (65-115); Osmolality Calculated 292 mOsm/kg (285-295); Potassium 3.8 mmol/L (3.5-5.1); Sodium 141 mmol/L (136-145); Total Bilirubin 0.3 mg/dL (0.15-1.2); Total Protein 6.2 g/dL (6.6-8.7)
[2023-11-29] MEDS: aspirin 81 mg EC Tablet PO (05:35)
[2023-11-29] MEDS: ALPRAZolam 0.5 mg Tablet 0.25 MG PO (05:35)
[2023-11-29] MEDS: citalopram 20 mg Tablet PO (05:35)
[2023-11-29] MEDS: acetaminophen 325 mg Tablet 650 MG PO (08:17)
[2023-11-29] MEDS: heparin 5,000 unit/mL INJ 1 mL 5000 UNIT SUBCUT ×2 (08:18→21:47)
--- NOTE | 2023-11-29 08:29 | PC.PHAR ---
PHARMACY TO DOSE VANCOMYCIN Vanco Initial Dosing Patient Information Sex F M/F Last Name SHANNON AGE 63 years First Name VALENTINA Ht 65 inches : 1960 ABW 81.873 kg Location: [facility] IBW 57 kg If loading dose given: DW 66.9492 kg Loading DOSE: 1000 mg SCr 0.6 mg/dl This Dose = 14.9 mg/kg CrCl 84.1 ml/min 1st dose Cmax: 19.2 mcg/ml Vd 50.2119 liters Time elapsed: 4.0 hrs Ke 0.074 hrs-1 Serum Conc. = 14.3 mcg/ml t1/2 9 hrs Hrs until 20 mcg/ml 0.4 hrs Hrs until 15 mcg/ml 4.3 hours Hrs until 10 mcg/ml 9.8 hours Dose Tau (Freq) Levels expected Standard 1250 12 Cmax 39.2 Targets 18.67 14.0 Cpeak 36.4 25 to 40 mg/kg hours Cmin 18.7 10 to 20
[2023-11-29] MEDS: vancomycin 1,250 MG/250 ML PIGGYBACK 250 MG IV ×2 (08:57→21:47)
[2023-11-29] MEDS: fentaNYL 25 mcg Patch 1 PATCH TRANSDERMA (12:55)
[2023-11-29] MEDS: ipratropium-albuterol 3 mL Neb INHALATION ×2 (14:05→21:07)
[2023-11-29] MEDS: budesonide 0.5 mg/2 mL Neb INHALATION (14:05)
--- NOTE | 2023-11-29 15:53 | P.PN_ITS ---
Subjective 2 Subjective: No acute events overnight. Patient has remained hemodynamically stable and afebrile on room air. Seen with multiple family members at bedside. Patient complaining of pain on the right side of the chest posteriorly. Denies any nausea, vomiting, headache or difficulty in breathing. Tolerating diet well. Vitals/I&O/Wt Last Vital Signs Temp 97.8 F 11/29/23 12:00 Pulse 72 11/29/23 14:10 Resp 18 11/29/23 14:05 BP 110/68 11/29/23 12:00 Pulse Ox 96 11/29/23 14:05 O2 Del Method Room Air 11/29/23 14:05 11/29/23 11/29/23 11/29/23 06:59 14:59 22:59 Intake Total 1090 / 1090 Balance 1090 / 1090 Weight last 48 hrs Weight 81.873 kg Weight 81.873 kg Weight 75.013 kg Weight 75.342 kg Weight 75.342 kg Weight 75.75 kg Physical Exam 2 Narrative: General: No acute distress, AO x3 HEENT: PERRLA, pupils bilaterally equal and reactive Chest: Normal vesicular breath sounds, decreased air entry with mild rhonchi in right lower lobe CVS: S1-S2 regular, no murmurs, no tachycardia, no gallops, no rubs Abdomen: Soft, nontender, no organomegaly, bowel sounds present Neuro: No focal deficits, no facial deformity, AO x3, power 5/5 in all limbs Data 11/29/23 03:37 11/29/23 03:37 A&P Assessment and plan (1) Right lower lobe pneumonia: Failed outpatient treatment. Was in the ER around a week ago. Failed trial of doxycycline. Patient is immunocompromised because of treatment with leflunomide and methotrexate. Sputum culture pending, urine Legionella, bacterial antigen negative, MRSA swab pending, procalcitonin and D-dimer negative. Blood cultures so far negative. Appreciate CT chest results with concerns for right lower lobe pleural effusion consistent with parapneumonic effusion. Given resolution of leukocytosis without any fevers is less concerns for empyema but patient would benefit from diagnostic versus therapeutic tap. Ultrasound-guided thoracentesis when available. Will plan for fluid studies to rule out empyema. Pneumonia for now less likely. Will continue with IV ceftriaxone for overall 5- day course. Continue with nebulization treatment with DuoNebs every 6 hour, Pulmicort twice daily. (2) Pleural effusion, right: As above. (3) Abdominal pain: Most likely in setting of loculated pleural effusion. Unlikely abdominal pathology. Appreciate CT abdomen pelvis done few days ago. LFTs within normal limits. Protonix IV daily, Zofran as needed. (4) Seropositive rheumatoid arthritis of multiple sites: (5) High risk medication use: (6) Failure of outpatient treatment: Plan Continue other chronic medications but will hold off on starting methotrexate and leflunomide. Full code Regular diet Protonix for PUD prophylaxis Heparin 5000 every 12 hourly for DVT prophylaxis. Plan for the day: MRSA swab pending. Blood cultures so far negative. Plan for thoracentesis for diagnostic and therapeutic purposes. Patient has leukocytosis today most likely in setting of dose of steroids which she received at the time of admission. Patient has remained hemodynamically stable and afebrile. For now empirically add vancomycin. Continue with IV ceftriaxone. Add fentanyl patch for pain. N.p.o. after midnight. Discharge plan: If patient does not have empyema most likely can be discharged after thoracentesis on oral antibiotics Care plan discussed in detail with patient's family members at bedside. All the questions were answered. Attestations 2 Medical Necessity Statement*: Patient requires further hospitalization for management of parapneumonic effusion while patient awaits diagnostic/therapeutic paracentesis Diagnoses Right lower lobe pneumonia J18.9 Pleural effusion, right J90 Abdominal pain R10.9 Seropositive rheumatoid arthritis of multiple sites M05.79 High risk medication use Z79.899 Failure of outpatient treatment Z78.9
[2023-11-29] MEDS: atorvastatin 40 mg Tablet PO (17:08)
[2023-11-29] MEDS: cefTRIAXone 1,000 MG in sodium chloride 0.9% (plus) 50 ML 100 MG IV (17:08)
[2023-11-29] MEDS: pantoprazole 40 mg SDV IVP (21:46)
[2023-11-30] VITALS (13 sets, daily range): BP systolic 113–134; BP diastolic 68–77; PULSE 74–102; RESP 16–24; TEMP 36.6–36.8; O2SAT 92–98; BMI 28.0
[2023-11-30 03:29] LABS: Basophils % 0.4 %; Eosinophils # 0.2 10^3/uL (0.0-0.8); Eosinophils % 1.6 %; Hematocrit 30.6 % (36-47); Lymphocytes # 3.2 10^3/uL (0.8-4.8); Mean Corpuscular HGB Conc 33.3 g/dL (30-55); Mean Corpuscular Hemoglobin 31.4 pg (27-33); Mean Corpuscular Volume 94.2 fl (85-98); Mean Platelet Volume 9.5 fL (7.4-10.4); Monocytes # 1.2 10^3/uL (0.2-0.9); Monocytes % 10.5 %; Neutrophils # 6.67 10^3/uL (1.8-7.7); Neutrophils % 59.1 %; Nucleated Red Blood Cells % 0 %; Platelet Count 507 10^3/cmm (157-399); Red Blood Count 3.25 10^6/uL (3.85-5.65); Red Cell Distribution Width 14.6 % (12.1-15.1); White Blood Count 11.27 10^3/uL (3.29-11.43)
[2023-11-30 03:55] LABS: Alanine Aminotransferase 94 U/L (0-33); Albumin Level 2.6 g/dL (3.5-5.2); Alkaline Phosphatase 112 U/L (35-105); Anion Gap 12.8 (5-19); Aspartate Amino Transferase 54 U/L (0-32); Blood Urea Nitrogen 11 mg/dL (8-23); Calcium 7.9 mg/dL (8.5-10.5); Carbon Dioxide 24 mmol/L (22-29); Chloride 106 mmol/L (98-107); Globulin 3.6 g/dL (1.3-4.6); Glomerular Filtration Rate 100.3 mL/min (90-130); Glucose 94 mg/dL (65-115); Osmolality Calculated 287 mOsm/kg (285-295); Potassium 3.8 mmol/L (3.5-5.1); Sodium 139 mmol/L (136-145); Total Bilirubin 0.3 mg/dL (0.15-1.2); Total Protein 6.2 g/dL (6.6-8.7)
[2023-11-30] MEDS: morphine 4 mg/mL SDV 1 mL 2 MG IVP ×3 (04:28→17:55)
[2023-11-30] MEDS: ALPRAZolam 0.5 mg Tablet 0.25 MG PO (05:37)
[2023-11-30] MEDS: citalopram 20 mg Tablet PO (05:37)
[2023-11-30] MEDS: vancomycin 1,250 MG/250 ML PIGGYBACK 250 MG IV ×2 (08:35→20:34)
[2023-11-30] MEDS: ipratropium-albuterol 3 mL Neb INHALATION ×3 (08:59→20:31)
[2023-11-30] MEDS: budesonide 0.5 mg/2 mL Neb INHALATION ×2 (08:59→20:31)
[2023-11-30 09:18] LABS: INR 1.07 (0.8-1.2)
[2023-11-30 15:16] LABS: Methicillin-Resist S.aureu PCR NOT DETECTED (NOT DETECTED)
--- NOTE | 2023-11-30 15:54 | P.PN_ITS ---
Subjective 2 Subjective: She is still having some pain in right side lower chest. Gets dyspneic with exertion. Vitals/I&O/Wt Last Vital Signs Temp 97.8 F 11/30/23 12:00 Pulse 102 H 11/30/23 13:43 Resp 24 H 11/30/23 13:43 BP 125/76 11/30/23 12:00 Pulse Ox 92 11/30/23 13:43 O2 Del Method Room Air 11/30/23 13:43 11/30/23 11/30/23 11/30/23 06:59 14:59 22:59 Intake Total 250 / 250 Balance 250 / 250 Weight last 48 hrs Weight 76.43 kg Weight 76.43 kg Weight 81.873 kg Weight 81.873 kg Physical Exam 2 Const: COMMON NORMALS: patient oriented x3 and alert GENERAL APPEARANCE: c ooperative ORIENTATION/CONSCIOUSNESS: Yes awake HENMT: COMMON NORMALS: oropharynx normal Neck/C-Spine: COMMON NORMALS: no JVD Resp: AUSCULTATION: diminished lung sounds on the right in the lower lung verde Cardio: COMMON NORMALS: no JVD, regular rhythm, S1 normal heart sound present, S2 normal heart sound present and No murmurs present (Cardio) RHYTHM: regular rhythm HEART SOUNDS: S1 normal heart sound present and S2 normal heart sound present GI: COMMON NORMALS: Normal to inspection, nondistended, normoactive bowel sounds present, Soft to palpation and non-tender PALPATION: Yes Soft to palpation Extremity: COMMON NORMALS: no joint enlargement and no pedal edema Neuro: COMMON NORMALS: patient oriented x3 and moves all extremities S ENSORIUM/ORIENTATION: Yes alert Skin: COMMON NORMALS: no rashes or lesions noted GENERAL SKIN EXAM: no rashes or lesions noted Data 11/30/23 03:00 11/30/23 03:00 Micro: Microbiology 11/27/23 19:09 Blood Culture - Preliminary Blood 11/27/23 18:55 Blood Culture - Preliminary Blood A&P Assessment and plan (1) Right lower lobe pneumonia: Continue IV ceftriaxone. Vancomycin. Still having pain in the right side chest. Requiring fentanyl patch. Discussed with her risks including constipation. Add scheduled bowel regimen. Add local lidocaine patch. Awaiting thoracentesis. Requesting studies for pleural fluid including analysis, Gram stain and culture, fungal, mycobacterial culture. pH, glucose, protein, LDH. She is otherwise currently on room air, but is immunocompromise, at risk of worsening infection. Assess for empyema. Reviewed vitals, CBC, CMP. Reviewed Legionella antigen, urine bacterial antigens, reviewed blood culture. No growth. Failed outpatient treatment. Was in the ER around a week ago. Failed trial of doxycycline. Patient is immunocompromised because of treatment with leflunomide and methotrexate. CT chest with concerns for right lower lobe pleural effusion consistent with parapneumonic effusion. Given resolution of leukocytosis without any fevers is less concerns for empyema but patient would benefit from diagnostic versus therapeutic tap. Ultrasound-guided thoracentesis when available. Will plan for fluid studies to rule out empyema. Pneumonia for now less likely. Will continue with IV ceftriaxone for overall 5- day course. Continue with nebulization treatment with DuoNebs every 6 hour, Pulmicort twice daily. (2) Pleural effusion, right: As above. (3) Abdominal pain: Most likely in setting of loculated pleural effusion. Reviewed gallbladder ultrasound. Unlikely abdominal pathology. Appreciate CT abdomen pelvis done few days ago. LFTs within normal limits. Protonix IV daily, Zofran as needed. (4) Seropositive rheumatoid arthritis of multiple sites: (5) High risk medication use: (6) Failure of outpatient treatment: Plan Continue other chronic medications but will hold off on starting methotrexate and leflunomide. Full code Regular diet Protonix for PUD prophylaxis Heparin 5000 every 12 hourly for DVT prophylaxis. Attestations 2 Medical Necessity Statement*: Continue hospitalization for additional assessment management of large right pleural effusion symptomatic with pain, dyspnea in a lady who is immunocompromised with lack of response to outpatient treatment of pneumonia. Assess for possible empyema. Diagnoses Right lower lobe pneumonia J18.9 Pleural effusion, right J90 Abdominal pain R10.9 Seropositive rheumatoid arthritis of multiple sites M05.79 High risk medication use Z79.899 Failure of outpatient treatment Z78.9
[2023-11-30] MEDS: atorvastatin 40 mg Tablet PO (17:52)
[2023-11-30] MEDS: cefTRIAXone 1,000 MG in sodium chloride 0.9% (plus) 50 ML 100 MG IV (17:52)
[2023-11-30] MEDS: polyethylene glycol 3350 Pkt 17 gm PO (17:55)
[2023-11-30] MEDS: pantoprazole 40 mg SDV IVP (20:33)
[2023-11-30 20:50] LABS: Vancomycin Trough 14.7 ug/mL (10-15)
[2023-12-01] VITALS (10 sets, daily range): BP systolic 113–121; BP diastolic 73–74; PULSE 77–107; RESP 16–20; TEMP 36.6–37.1; O2SAT 90–93
[2023-12-01] MEDS: ipratropium-albuterol 3 mL Neb INHALATION ×3 (02:19→15:00)
[2023-12-01] MEDS: ALPRAZolam 0.5 mg Tablet 0.25 MG PO (05:02)
[2023-12-01] MEDS: aspirin 81 mg EC Tablet PO (05:02)
[2023-12-01] MEDS: citalopram 20 mg Tablet PO (05:02)
--- NOTE | 2023-12-01 06:00 | US_ITS ---
WS: [id number] INDICATION: Pleural effusion TECHNIQUE: Ultrasound bilateral chest FINDINGS: No significant LEFT pleural effusion. Loculated RIGHT pleural effusion with diffuse dense e chogenic debris. This does not appear drainable via thoracentesis. IMPRESSION: Loculated RIGHT pleural effusion with diffuse dense echogenic debris . Consider surgica l consultation for chest tube placement.
[2023-12-01 06:06] LABS: Basophils % 0.4 %; Eosinophils # 0.2 10^3/uL (0.0-0.8); Eosinophils % 1.9 %; Hematocrit 31.7 % (36-47); Lymphocytes # 2.4 10^3/uL (0.8-4.8); Lymphocytes % 21.4 %; Mean Corpuscular HGB Conc 33.4 g/dL (30-55); Mean Corpuscular Hemoglobin 31.6 pg (27-33); Mean Corpuscular Volume 94.6 fl (85-98); Mean Platelet Volume 9.3 fL (7.4-10.4); Monocytes # 1.3 10^3/uL (0.2-0.9); Neutrophils # 7.07 10^3/uL (1.8-7.7); Neutrophils % 63.9 %; Nucleated Red Blood Cells % 0 %; Platelet Count 595 10^3/cmm (157-399); Red Blood Count 3.35 10^6/uL (3.85-5.65); Red Cell Distribution Width 14.8 % (12.1-15.1); White Blood Count 11.04 10^3/uL (3.29-11.43)
[2023-12-01 06:57] LABS: Alanine Aminotransferase 66 U/L (0-33); Albumin Level 2.6 g/dL (3.5-5.2); Alkaline Phosphatase 113 U/L (35-105); Anion Gap 15.8 (5-19); Aspartate Amino Transferase 35 U/L (0-32); Blood Urea Nitrogen 9 mg/dL (8-23); Calcium 8.3 mg/dL (8.5-10.5); Carbon Dioxide 21 mmol/L (22-29); Chloride 103 mmol/L (98-107); Globulin 3.6 g/dL (1.3-4.6); Glomerular Filtration Rate 123.8 mL/min (90-130); Glucose 113 mg/dL (65-115); Osmolality Calculated 281 mOsm/kg (285-295); Potassium 3.8 mmol/L (3.5-5.1); Sodium 136 mmol/L (136-145); Total Bilirubin 0.4 mg/dL (0.15-1.2); Total Protein 6.2 g/dL (6.6-8.7)
[2023-12-01] MEDS: budesonide 0.5 mg/2 mL Neb INHALATION (07:33)
[2023-12-01] MEDS: vancomycin 1,250 MG/250 ML PIGGYBACK 250 MG IV (08:25)
[2023-12-01] MEDS: lidocaine 5% Patch 1 PATCH TOPICAL (08:26)
[2023-12-01] MEDS: polyethylene glycol 3350 Pkt 17 gm PO (08:26)
[2023-12-01] MEDS: heparin 5,000 unit/mL INJ 1 mL 5000 UNIT SUBCUT (08:30)
--- NOTE | 2023-12-01 11:53 | P.PN_ITS ---
Subjective 2 Subjective: Having pain and right lower chest, slightly better compared to yesterday. Vitals/I&O/Wt Last Vital Signs Temp 98.2 F 12/01/23 11:16 Pulse 77 12/01/23 11:16 Resp 16 12/01/23 11:16 BP 113/73 12/01/23 11:16 Pulse Ox 93 12/01/23 11:16 O2 Del Method Room Air 12/01/23 11:16 11/30/23 12/01/23 12/01/23 22:59 06:59 14:59 Intake Total 890 / 1140 250 / 1390 250 / 250 Balance 890 / 1140 250 / 1390 250 / 250 Weight last 48 hrs Weight 77.621 kg Weight 76.204 kg Weight 76.43 kg Weight 76.43 kg Physical Exam 2 Const: COMMON NORMALS: patient oriented x3 and alert GENERAL APPEARANCE: c ooperative ORIENTATION/CONSCIOUSNESS: Yes awake HENMT: COMMON NORMALS: oropharynx normal Neck/C-Spine: COMMON NORMALS: no JVD Resp: AUSCULTATION: diminished lung sounds on the right in the lower lung verde Cardio: COMMON NORMALS: no JVD, regular rhythm, S1 normal heart sound present, S2 normal heart sound present and No murmurs present (Cardio) RHYTHM: regular rhythm HEART SOUNDS: S1 normal heart sound present and S2 normal heart sound present GI: COMMON NORMALS: Normal to inspection, nondistended, normoactive bowel sounds present, Soft to palpation and non-tender PALPATION: Yes Soft to palpation Extremity: COMMON NORMALS: no joint enlargement and no pedal edema Neuro: COMMON NORMALS: patient oriented x3 and moves all extremities S ENSORIUM/ORIENTATION: Yes alert Skin: COMMON NORMALS: no rashes or lesions noted GENERAL SKIN EXAM: no rashes or lesions noted Data 12/01/23 05:37 12/01/23 05:37 A&P Assessment and plan (1) Right lower lobe pneumonia: Reviewed vitals, CBC, CMP. Blood culture. 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 Radiology were going to assess for possibility of imaging guided thoracentesis, reviewed ultrasound, thoracentesis not possible. Per discussion with pulmonology discussed with patient and family consideration of VATS for both assessment and treatment, assess for empyema, as well as to treat pleural effusion, in case of lack of empyema with also risk of trapped lung. They would like to proceed with transfer, preferences for [facility] in [place], if not then [facility], however, called both facilities and no beds available. Called [facility], they are taking her information to see about placing her on a waiting list. Continue IV ceftriaxone. Vancomycin. Continues having pain in the right side chest. Requiring fentanyl patch. Lidocaine patch was added. Some improvement. Risk of C diff. Monitor. Awaiting thoracentesis. Requesting studies for pleural fluid including analysis, Gram stain and culture, fungal, mycobacterial culture. pH, glucose, protein, LDH. She is otherwise currently on room air, but is immunocompromised, at risk of worsening infection. Assess for empyema. Reviewed vitals, CBC, CMP. Reviewed Legionella antigen, urine bacterial antigens, reviewed blood culture. No growth. Failed outpatient treatment. Was in the ER around a week ago. Failed trial of doxycycline. Patient is immunocompromised because of treatment with leflunomide and methotrexate. CT chest with concerns for right lower lobe pleural effusion consistent with parapneumonic effusion. Given resolution of leukocytosis without any fevers is less concerns for empyema but patient would benefit from diagnostic versus therapeutic tap. Ultrasound-guided thoracentesis when available. Will plan for fluid studies to rule out empyema. Continue with nebulization treatment with DuoNebs every 6 hour, Pulmicort twice daily. (2) Pleural effusion, right: As above. (3) Abdominal pain: Most likely in setting of loculated pleural effusion. Reviewed gallbladder ultrasound. Unlikely abdominal pathology. Appreciate CT abdomen pelvis done few days ago. LFTs within normal limits. Protonix IV daily, Zofran as needed. (4) Seropositive rheumatoid arthritis of multiple sites: (5) High risk medication use: (6) Failure of outpatient treatment: Plan Continue other chronic medications but will hold off on starting methotrexate and leflunomide. Full code Regular diet Protonix for PUD prophylaxis Heparin 5000 every 12 hourly for DVT prophylaxis. Attestations 2 Medical Necessity Statement*: Continue hospitalization for additional assessment management of large right pleural effusion symptomatic with pain, dyspnea in a lady who is immunocompromised with lack of response to outpatient treatment of pneumonia. Assess for possible empyema. and High MDM includes amount and/or complexity of data reviewed/ordered [ resulted lab(s)/test(s), ordered lab(s)/test(s) and other healthcare professional discussion] and described risk of complication, morbidity or mortality of management as documented Diagnoses Right lower lobe pneumonia J18.9 Pleural effusion, right J90 Abdominal pain R10.9 Seropositive rheumatoid arthritis of multiple sites M05.79 High risk medication use Z79.899 Failure of outpatient treatment Z78.9
--- NOTE | 2023-12-01 15:28 | P.TS_ITS ---
Transfer Summary Providers Date of Admission: 11/27/23 17:51 Date of Discharge/Transfer: 12/01/23 Attending Provider at Admission: Ruslan Van MD Attending Provider at Transfer: Clif Luque Primary Care Provider: Cipriano Allred DO Transfer Plans: Anticipated date of transfer: 12/01/23 . Diagnoses at Discharge Discharge Diagnosis (1) Right lower lobe pneumonia: Status: Acute (2) Pleural effusion, right: Status: Acute (3) Abdominal pain: Status: Acute (4) Seropositive rheumatoid arthritis of multiple sites: Status: Acute (5) High risk medication use: Status: Acute (6) Failure of outpatient treatment: Status: Acute Reason for Visit Reason for Visit Abd pain Hospital Course Hospital Course Below 63-year-old lady with history of seropositive rheumatoid arthritis on leflunomide, methotrexate, received treatment for pneumonia for having completed a 7-day course of doxycycline after having right lower lobe pneumonia found on imaging return to the hospital due to right lower chest pain, on presentation with leukocytosis 12.9, was restarted on antibiotic coverage with ceftriaxone and azithromycin, was found to have at least partially loculated large right pleural effusion on presenting CT. continued with treatment for pneumonia, received pain medications for pain, arrangements for being made for thoracentesis once available, this was further delayed due to shortage of Lackamp Lasix and other supplies. Supplies were obtained, however, on ultrasound assessment loculated pleural effusion is not amenable to treatment by thoracentesis. Recommendation was made for VATS to clear out the complex effusion, confirm it is not an empyema, and avoid risk of trapped lung. She is currently accepted for further assessment and management at [facility] in [place]. Physical Exam Narrative: Accompanied by her daughter. Const: COMMON NORMALS: patient oriented x3 and alert GENERAL APPEARANCE: cooperative ORIENTATION/CONSCIOUSNESS: Yes awake HENMT: COMMON NORMALS: oropharynx normal Neck/C-Spine: COMMON NORMALS: no JVD Resp: AUSCULTATION: diminished lung sounds on the right in the lower lung verde Cardio: COMMON NORMALS: no JVD, regular rhythm, S1 normal heart sound present, S2 normal heart sound present and No murmurs present (Cardio) RHYTHM: regular rhythm HEART SOUNDS: S1 normal heart sound present and S2 normal heart sound present GI: COMMON NORMALS: Normal to inspection, nondistended, normoactive bowel sounds present, Soft to palpation and non-tender PALPATION: Yes Soft to palpation Extremity: COMMON NORMALS: no joint enlargement and no pedal edema Neuro: COMMON NORMALS: patient oriented x3 and moves all extremities SENSORIUM/ORIENTATION: Yes alert Skin: COMMON NORMALS: no rashes or lesions noted GENERAL SKIN EXAM: no rashes or lesions noted TS Data Studies Completed and Pending Pending at discharge Category Date Time Status Albumin Body Fluid Routine Lab 11/30/23 12:50 Ordered Anaerobic Culture Routine Lab 11/30/23 12:50 Ordered Blood Cultures ([facility]) Routine Lab 11/27/23 18:55 Results Blood Cultures ([facility]) Routine Lab 11/27/23 19:09 Results Body Fluid Analysis Routine Lab 11/30/23 12:50 Ordered Body Fluid Culture & GS Routine Lab 11/30/23 12:50 Ordered Body Fluid Specific [place] Routine Lab 11/30/23 12:50 Ordered Complete Blood Count w/Auto AM LABS Lab 12/02/23 04:00 Ordered Complete Blood Count w/Auto AM LABS Lab 12/03/23 04:00 Ordered Comprehensive Metabolic Panel AM LABS Lab 12/02/23 04:00 Ordered Comprehensive Metabolic Panel AM LABS Lab 12/03/23 04:00 Ordered Cyto Order Verification Routine Lab 11/30/23 12:50 Ordered Fungal Culture not HR/SK/BL Routine Lab 11/30/23 12:50 Ordered Glucose Body Fluid Routine Lab 11/30/23 12:50 Ordered LDH Body Fluid Routine Lab 11/30/23 12:50 Ordered Mycobacteria, Culture w/Fluor Routine Lab 11/30/23 12:50 Ordered Sputum Culture and Gram Stain Stat Lab 11/27/23 17:56 Uncollected Total Protein Pleural Fluid Routine Lab 11/30/23 12:50 Ordered pH Body Fluid Routine Lab 11/30/23 12:50 Ordered Cytology [PTH] Routine Pth 11/30/23 12:50 Ordered Completed Studies During Hospitalization Category Date Time Status CTA chest [CT angio chest PE protcl [id number]] Stat Cat Scan 11/27/23 18:43 Completed XR chest 1V portable [id number] Stat Exams 11/27/23 16:39 Completed [place] chest [id number] Stat Ultrasound 12/01/23 06:00 Completed US gall bladder [id number] Stat Ultrasound 11/27/23 17:30 Completed Laboratory Last Values WBC 11.04 10^3/uL (3.29-11.43) 12/01/23 05:37 Corrected WBC Cancelled 11/28/23 04:20 RBC 3.35 10^6/uL (3.85-5.65) L 12/01/23 05:37 Hgb 10.60 g/dL (11.27-16.99) L 12/01/23 05:37 Hct 31.7 % (36-47) L 12/01/23 05:37 MCV 94.6 fl (85-98) 12/01/23 05:37 MCH 31.6 pg (27-33) 12/01/23 05:37 MCHC 33.4 g/dL (30-55) 12/01/23 05:37 RDW 14.8 % (12.1-15.1) 12/01/23 05:37 Plt Count 595 10^3/cmm (157-399) H 12/01/23 05:37 MPV 9.3 fL (7.4-10.4) 12/01/23 05:37 Gran % Cancelled 11/28/23 04:20 Neut % (Auto) 63.9 % 12/01/23 05:37 Lymph % (Auto) 21.4 % 12/01/23 05:37 [place] % (Auto) 12.0 % 12/01/23 05:37 Eos % (Auto) 1.9 % 12/01/23 05:37 Baso % (Auto) 0.4 % 12/01/23 05:37 Neut # (Auto) 7.07 10^3/uL (1.8-7.7) 12/01/23 05:37 Lymph # (Auto) 2.4 10^3/uL (0.8-4.8) 12/01/23 05:37 [place] # (Auto) 1.3 10^3/uL (0.2-0.9) H 12/01/23 05:37 Eos # (Auto) 0.2 10^3/uL (0.0-0.8) 12/01/23 05:37 Baso # (Auto) 0.0 10^3/uL (0.0-0.1) 12/01/23 05:37 Absolute Gran (auto) Cancelled 11/28/23 04:20 Nucleated RBC % (auto) 0 % 12/01/23 05:37 Nucleated RBCs # 0.0 /100WBC 12/01/23 05:37 PT 14.30 SECONDS (12.1-14.9) 11/30/23 08:29 INR 1.07 (0.8-1.2) 11/30/23 08:29 D-Dimer 3.26 ug/mLFEU (0-0.59) H 11/27/23 17:30 Sodium 136 mmol/L (136-145) 12/01/23 05:37 Potassium 3.8 mmol/L (3.5-5.1) 12/01/23 05:37 Chloride 103 mmol/L (98-107) 12/01/23 05:37 Carbon Dioxide 21 mmol/L (22-29) L 12/01/23 05:37 Anion Gap 15.8 (5-19) 12/01/23 05:37 BUN 9 mg/dL (8-23) 12/01/23 05:37 Creatinine 0.5 mg/dL (0.5-0.9) 12/01/23 05:37 GFR Calculation 123.8 mL/min (90-130) 12/01/23 05:37 Glucose 113 mg/dL (65-115) 12/01/23 05:37 Estimat Average Glucose 111 11/28/23 04:20 Hemoglobin A1c 5.5 % (4.0-6.0) 11/28/23 04:20 Calculated Osmolality 281 mOsm/kg (285-295) L 12/01/23 05:37 Lactic Acid 1.8 mmol/L (0.5-2.2) 11/27/23 17:30 Calcium 8.3 mg/dL (8.5-10.5) L 12/01/23 05:37 Phosphorus 3.2 mg/dL (2.5-4.5) 11/28/23 04:20 Magnesium 1.8 mg/dL (1.7-2.3) 11/28/23 04:20 Iron 16 ug/dL (37-145) L 11/27/23 17:30 TIBC 197 mcg/dl 11/27/23 17:30 % Saturation 8.1 % (20-50) L 11/27/23 17:30 Unsat Iron Binding 181 ug/dL (112-347) 11/27/23 17:30 Total Bilirubin 0.4 mg/dL (0.15-1.2) 12/01/23 05:37 AST 35 U/L (0-32) H 12/01/23 05:37 ALT 66 U/L (0-33) H 12/01/23 05:37 Alkaline Phosphatase 113 U/L (35-105) H 12/01/23 05:37 Total Protein 6.2 g/dL (6.6-8.7) L 12/01/23 05:37 Albumin 2.6 g/dL (3.5-5.2) L 12/01/23 05:37 Globulin 3.6 g/dL (1.3-4.6) 12/01/23 05:37 Triglycerides 71 mg/dL (0-150) 11/28/23 04:20 Cholesterol 104 mg/dL (0-200) 11/28/23 04:20 LDL Cholesterol, Calc 53 mg/dL (50-129) 11/28/23 04:20 HDL Cholesterol 37 mg/dL (60-100) L 11/28/23 04:20 LDL/HDL Ratio 1.43 RATIO (0.00-3.22) 11/28/23 04:20 Cholesterol/HDL Ratio 2.81 mg/dL (0.0-4.40) 11/28/23 04:20 Lipase 22 U/L (13-60) 11/27/23 17:30 Vitamin B12 627 pg/mL (232-1245) 11/27/23 17:30 Folate > 20.0 ng/mL (4.8-37.3) 11/28/23 04:20 Procalcitonin 0.07 ng/mL (0-0.5) 11/28/23 04:20 TSH 3.26 uIU/mL (0.27-4.20) 11/27/23 17:30 Urine Color Yellow (Yellow) 11/27/23 21:55 Urine Appearance Cloudy (CLEAR) A 11/27/23 21:55 Urine pH 5 (5-7) 11/27/23 21:55 Ur Specific [place] 1.005 (1.005-1.030) 11/27/23 21:55 Urine Protein 1+ (Negative) H 11/27/23 21:55 Urine Glucose (UA) Norm (Normal) 11/27/23 21:55 Urine Ketones 2+ (Negative) H 11/27/23 21:55 Urine Blood 2+ (Negative) H 11/27/23 21:55 Urine Nitrate Positive (Negative) H 11/27/23 21:55 Urine Bilirubin 1+ (Negative) H 11/27/23 21:55 Urine Urobilinogen Norm mg/dL (Negative) 11/27/23 21:55 Ur Leukocyte Esterase 2+ (Negative) H 11/27/23 21:55 Urine RBC 15-25 /hpf (0-2) H 11/27/23 21:55 Urine WBC 25-40 /hpf (0-5) H 11/27/23 21:55 Ur Squamous Epith Cells 15-25 /hpf (0-5) H 11/27/23 21:55 Amorphous Sediment 1+ /hpf 11/27/23 21:55 Urine Bacteria 1+ /hpf (NONE) H 11/27/23 21:55 Hyaline Casts 0-4 /lpf H 11/27/23 21:55 Urine Mucus Trace /hpf 11/27/23 21:55 Vancomycin Trough 14.7 ug/mL (10-15) 11/30/23 20:12 MRSA (PCR) Not detected (NOT DETECTED) 11/29/23 14:29 Radiology Impressions Chest X-Ray 11/27/23 16:39 IMPRESSION: 1. Increased right pleural effusion and basilar consolidation. Gallbladder Ultrasound 11/27/23 17:30 IMPRESSION: 1. Normal gallbladder. 2. Increased echogenicity of the liver could represent fatty infiltration or parenchymal disease. 3. Moderate-large right pleural effusion. Chest CTA 11/27/23 18:43 IMPRESSION: 1. No evidence for pulmonary embolus. 2. Large semi loculated right pleural effusion with extension into the major fissure. 3. Scattered atelectasis with near-complete collapse of the right lower lobe. No evidence of active pneumonia. COMMENTS: The presence of pulmonary emphysema on CT is an independent risk factor for lung cancer. In the absence of a history or active diagnosis of lung cancer, it is recommended that this patient with emphysema be evaluated for enrollment in a low dose CT lung cancer screening program. Recent Clincial Data Last Vital Signs Temp 98.2 F 12/01/23 11:16 Pulse 86 12/01/23 15:13 Resp 16 12/01/23 15:03 BP 113/73 12/01/23 11:16 Pulse Ox 92 12/01/23 15:04 O2 Del Method Room Air 12/01/23 15:04 Vital Signs Temp Pulse Resp BP Pulse Ox O2 Del Method 12/01/23 15:13 86 12/01/23 15:04 92 Room Air 12/01/23 15:03 85 16 92 Room Air 12/01/23 11:16 98.2 F 77 16 113/73 93 Room Air 12/01/23 08:00 98.8 F 93 16 119/73 91 Room Air 12/01/23 07:34 90 20 H 90 Room Air 12/01/23 04:00 98.0 F 90 20 H 121/74 90 Room Air Intake & Output/Weight 11/29/23 11/30/23 12/01/23 12/02/23 06:59 06:59 06:59 06:59 Intake Total 2867.5 / 2867.5 2109 1390 / 1390 250 / 250 Output Total 900 / 900 Balance 1967.5 / 1967.5 2109 1390 / 1390 250 / 250 Weight 81.873 kg 76.43 kg 76.204 kg 77.621 kg Vitals Last Vital Signs Temp 98.2 F 12/01/23 11:16 Pulse 86 12/01/23 15:13 Resp 16 12/01/23 15:03 BP 113/73 12/01/23 11:16 Pulse Ox 92 12/01/23 15:04 O2 Del Method Room Air 12/01/23 15:04 TS Medications Medications Acetaminophen (Acetaminophen 325 Mg Tablet) 650 mg PO Q6H PRN PRN Reason: Mild/Mod Pain Or Temp >/= 101 Last Admin: 11/29/23 08:17 Dose: 650 mg Albuterol/Ipratropium (Ipratropium-Albuterol 3 Ml Neb) 3 ml INHALATION Q6H.RESP [facility] Last Admin: 12/01/23 15:00 Dose: 3 ml Alprazolam (Alprazolam 0.5 Mg Tablet) 0.25 mg PO [facility] Last Admin: 12/01/23 05:02 Dose: 0.25 mg Aspirin (Aspirin 81 Mg Ec Tablet) 81 mg PO [facility] Last Admin: 12/01/23 05:02 Dose: 81 mg Atorvastatin Calcium (Atorvastatin 40 Mg Tablet) 40 mg PO QPM [facility] Last Admin: 11/30/23 17:52 Dose: 40 mg Bisacodyl (Bisacodyl 5 Mg Tablet) 10 mg PO DAILY PRN; Protocol PRN Reason: Constipation (see protocol) Budesonide (Budesonide 0.5 Mg/2 Ml Neb) 0.5 mg INHALATION BID PRN PRN Reason: SHORTNESS OF BREATH Last Admin: 12/01/23 07:33 Dose: 0.5 mg Citalopram Hydrobromide (Citalopram 20 Mg Tablet) 20 mg PO QAM [facility] Last Admin: 12/01/23 05:02 Dose: 20 mg Fentanyl (Fentanyl 25 Mcg Patch) 1 patch TRANSDERMA Q72H [facility] Last Admin: 11/29/23 12:55 Dose: 1 patch Heparin Sodium (Porcine) (Heparin 5,000 Unit/Ml Inj 1 Ml) 5,000 unit SUBCUT Q12H [facility] Last Admin: 12/01/23 08:30 Dose: 5,000 unit Ceftriaxone Sodium 1,000 mg/ (Sodium Chloride) 50 mls @ 100 mls/hr IV Q24H [facility]; Protocol Stop: 12/02/23 17:59 Last Infusion: 11/30/23 18:26 Dose: Infused Vancomycin/PEG/NADA/Lysine/Water (Vancocin) 1,250 mg in 250 mls @ 250 mls/hr IV Q12H [facility] Last Infusion: 12/01/23 10:23 Dose: Infused Lactulose (Lactulose Oral Liq 20 Gm/30 Ml Udc) 10 gm PO DAILY PRN; Protocol PRN Reason: Constipation (see protocol) Lidocaine (Lidocaine 5% Patch) 1 patch TOPICAL [id number] [facility] Last Admin: 12/01/23 08:26 Dose: 1 patch Magnesium Hydroxide (Magnesium Hydroxide 30 Ml Udc) 30 ml PO DAILY PRN; Protocol PRN Reason: Constipation (see protocol) Morphine Sulfate (Morphine 4 Mg/Ml Sdv 1 Ml) 2 mg IVP Q4H PRN PRN Reason: SEVERE PAIN Last Admin: 11/30/23 17:55 Dose: 2 mg Ondansetron HCl (Ondansetron 2 Mg/Ml Sdv 2 Ml) 4 mg IVP Q8H PRN PRN Reason: vomiting, or N/V if npo Pantoprazole Sodium (Pantoprazole 40 Mg Sdv) 40 mg IVP Q24H [facility] Last Admin: 11/30/23 20:33 Dose: 40 mg Polyethylene Glycol (Polyethylene Glycol 3350 Pkt 17 Gm) 17 gm PO BID [facility] Last Admin: 12/01/23 08:26 Dose: 17 gm Discontinued Medications Albuterol/Ipratropium (Ipratropium-Albuterol 3 Ml Neb) 3 ml INHALATION Q6H.RESP [facility] Albuterol/Ipratropium (Ipratropium-Albuterol 3 Ml Neb) 3 ml INHALATION Q6H.RESP PRN PRN Reason: SHORTNESS OF BREATH Last Admin: 11/29/23 14:05 Dose: 3 ml Budesonide (Budesonide 0.5 Mg/2 Ml Neb) 0.5 mg INHALATION BID [facility] Azithromycin 500 mg/ Sodium (Chloride) 250 mls @ 250 mls/hr IV ONCE ONE; Protocol Stop: 11/27/23 18:43 Last Infusion: 11/27/23 22:30 Dose: Infused Ceftriaxone Sodium 1,000 mg/ (Sodium Chloride) 50 mls @ 100 mls/hr IV ONCE ONE; Protocol Stop: 11/27/23 18:13 Last Infusion: 11/27/23 20:31 Dose: Infused Sodium Chloride (Sodium Chloride 0.9%) 1,000 mls @ 75 mls/hr IV .[id number] [facility] Stop: 11/28/23 20:22 Last Infusion: 11/28/23 21:55 Dose: Infused Vancomycin HCl / Sodium (Chloride) 250 mls @ 0 mls/hr [id number] PROTOCOL [facility]; Protocol Iohexol (Iohexol 350 Mg/Ml 500 Ml Btl (Per Ml)) 0 ml IV ONCE ONE Stop: 11/27/23 19:27 Last Admin: 11/27/23 19:26 Dose: 52 ml Methylprednisolone Sodium Succinate (Methylprednisolone Sod Succ 125 Mg/2 Ml Inj) 60 mg IVP ONCE ONE Stop: 11/27/23 17:58 Last Admin: 11/27/23 21:08 Dose: Not Given Methylprednisolone Sodium Succinate (Methylprednisolone Sod Succ 125 Mg/2 Ml Inj) 60 mg IVP ONCE ONE Stop: 11/27/23 20:46 Last Admin: 11/27/23 21:14 Dose: 60 mg Morphine Sulfate (Morphine 4 Mg/Ml Sdv 1 Ml) 4 mg IVP ONCE ONE Stop: 11/27/23 17:29 Last Admin: 11/27/23 17:59 Dose: 4 mg Ondansetron HCl (Ondansetron 2 Mg/Ml Sdv 2 Ml) 4 mg IVP ONCE ONE Stop: 11/27/23 17:29 Last Admin: 11/27/23 17:59 Dose: 4 mg Allergies No Known Allergies Allergy (Verified 11/18/23 12:38) Home Medications alprazolam 0.25 mg tablet 0.25 mg PO QAM anxiety 06/28/20 [History Confirmed 11/28/23] adalimumab 40 mg/0.8 mL subcutaneous pen kit (Humira Pen) See Rx Instructions .Route .COMPLEX #2 ea 08/11/23 [Rx Confirmed 11/28/23] folic acid 1 mg tablet 3 mg (3 x 1 mg) PO DAILY #90 tabs 08/11/23 [Rx Confirmed 11/28/23] prednisone 10 mg tablet See Rx Instructions .Route .COMPLEX #30 tabs 10/06/23 [Rx Confirmed 11/28/23] ascorbic acid (vitamin C) 500 mg tablet (Vitamin C) 500 mg PO DAILY 11/18/23 [History Confirmed 11/28/23] aspirin 81 mg tablet,delayed release 81 mg PO QAM 11/18/23 [History Confirmed 11/28/23] atorvastatin 40 mg tablet 40 mg PO QPM 11/18/23 [History Confirmed 11/28/23] calcium carbonate 600 mg-vitamin D3 5 mcg (200 unit) tablet 1 tab PO DAILY 11/18/23 [History Confirmed 11/28/23] carboxymethylcellulose sodium 1 % eye liquid gel drops 2 drp ophthalmic (eye) BID PRN unknown 11/18/23 [History Confirmed 11/28/23] cholecalciferol (vitamin D3) 50 mcg (2,000 unit) capsule 50 mcg PO DAILY 11/18/23 [History Confirmed 11/28/23] citalopram 20 mg tablet 20 mg PO QAM 11/18/23 [History Confirmed 11/28/23] methotrexate sodium 2.5 mg tablet 10 mg PO Q7D 11/18/23 [History Confirmed 11/28/23] multivitamin 1 tab PO DAILY 11/18/23 [History Confirmed 11/28/23] doxycycline hyclate 100 mg tablet 100 mg PO BID 11/28/23 [History Confirmed 11/28/23] hydrocortisone 2.5 % topical ointment 1 applic topical BID PRN Rash 11/28/23 [History Confirmed 11/28/23] triamcinolone acetonide 0.1 % topical ointment 1 applic topical BID PRN Rash 11/28/23 [History Confirmed 11/28/23] Discharge Plan Discharge Patient Disposition: Home Condition: Stable Prescriptions: No Action alprazolam 0.25 mg tablet 0.25 mg PO QAM Humira Pen 40 mg/0.8 mL pen injector kit See Rx Instructions .ROUTE .COMPLEX Qty: 2 3RF Dose Instruction: INJECT 40 MG (0.8 ML) UNDER THE SKIN EVERY 14 DAYS Rx Instructions: INJECT 40 MG (0.8 ML) UNDER THE SKIN EVERY 14 DAYS folic acid 1 mg tablet 3 mg PO DAILY Qty: 90 3RF prednisone 10 mg tablet See Rx Instructions .ROUTE .COMPLEX Qty: 30 1RF Dose Instruction: Take ONE tablet by MOUTH daily FOR 3-7 DAYS need FOR joint pain AND ra flare Rx Instructions: Take ONE tablet by MOUTH daily FOR 3-7 DAYS need FOR joint pain AND ra flare hydrocortisone 2.5 % ointment 1 applic TOPICAL BID PRN (Reason: Rash) doxycycline hyclate 100 mg tablet 100 mg PO BID triamcinolone acetonide 0.1 % ointment 1 applic topical BID PRN (Reason: Rash) multivitamin Tablet 1 tab PO DAILY atorvastatin 40 mg tablet 40 mg PO QPM calcium carbonate-vitamin D3 [Calcium + D] 600 mg-5 mcg (200 unit) Tablet 1 tab PO DAILY aspirin [Aspir-81] 81 mg Tablet,Delayed Release (Dr/Ec) 81 mg PO QAM citalopram 20 mg tablet 20 mg PO QAM ascorbic acid (vitamin C) [Vitamin C] 500 mg Tablet 500 mg PO DAILY carboxymethylcellulose sodium [Refresh] 1 % Drops, Liquid Gel 2 drp OPHTHALMIC (EYE) BID PRN (Reason: unknown) methotrexate sodium 2.5 mg tablet 10 mg PO Q7D Rx Instructions: on thu cholecalciferol (vitamin D3) 50 mcg (2,000 unit) capsule 50 mcg PO DAILY Referrals: Cipriano Allred DO [Primary Care Provider] - Patient Instructions: Opioid Safety Transfer Attestations Time Spent in Transfer Care: greater than 30 min Quality Metrics Clinical Quality Measures [ No reported AMI, CVA or VTE this stay] Coding Level of Care Code 42355 Total time (in minutes) for Discharge: 45 Diagnoses Right lower lobe pneumonia J18.9 Pleural effusion, right J90 Abdominal pain R10.9 Seropositive rheumatoid arthritis of multiple sites M05.79 High risk medication use Z79.899 Failure of outpatient treatment Z78.9
--- NOTE | 2023-12-01 16:08 | PC.NURSE ---
1600 This RN made aware by pt that Fentanyl patch came off of skin. Unable to be reapplied. This RN and Catalino Crisostomo RN wasted Fentanyl patch per protocol. Notified Dr. Luque. Dr. Luque would like for further pain control to be managed by physician in [place] taking over case. No new orders at this time.
--- NOTE | 2023-12-01 16:12 | PC.NURSE ---
5042 Plan is for pt to transfer to [facility] on [address] Ying. Report called in to Karen. Notified daughter of treatment plan and transfer. PCS form completed.
[2023-12-01] MEDS: cefTRIAXone 1,000 MG in sodium chloride 0.9% (plus) 50 ML 100 MG IV (17:23)
[2023-12-01] MEDS: atorvastatin 40 mg Tablet PO (17:23)
== END 2023-12-01 18:28 | disposition short-term general hospital (02) | DRG 194 ==
LOC: ER 18:01 → MEDSURG 18:55
PROVIDERS: Admitting Provider Student in an Organized Health Care Education/Training Program; Emergency Provider Emergency Medicine; PCP Electrodiagnostic Medicine; Visit Provider Internal Medicine
DX: J18.9 Pneumonia, unspecified organism (principal); D84.9 Immunodeficiency, unspecified; J90 Pleural effusion, not elsewhere classified; Z87.01 Personal history of pneumonia (recurrent); M05.89 Other rheumatoid arthritis with rheumatoid factor of multiple sites; M81.0 Age-related osteoporosis without current pathological fracture; E78.5 Hyperlipidemia, unspecified; I10 Essential (primary) hypertension; F41.9 Anxiety disorder, unspecified
CPT/HCPCS: 36415; 71045; 71275; 76604; 76705; 80053; 80061; 80202; 81001; 82607; 82746; 83036; 83540; 83550; 83605; 83690; 83735; 84100; 84145; 84443; 85025; 85378; 85610; 86403; 87040; 87449; 87641; 94640; 94664; 96365; 96367; 96372; 96375; 99285; C9113; J0456; J0696; J1644; J2270; J2405; J2930; J3370; J7030; J7050; J7626; Q9967

== ENCOUNTER 2024-01-11 13:58 | Outpatient (CLI) | payer MEDICARE, OTHER, SELFPAY ==
[2024-01-11 14:21] LABS: Basophils # 0.1 10^3/uL (0.0-0.1); Basophils % 0.9 %; Eosinophils # 0.4 10^3/uL (0.0-0.8); Eosinophils % 5.8 %; Hematocrit 32.9 % (36-47); Lymphocytes # 2.1 10^3/uL (0.8-4.8); Lymphocytes % 32.8 %; Mean Corpuscular HGB Conc 31.9 g/dL (30-55); Mean Corpuscular Hemoglobin 30.2 pg (27-33); Mean Corpuscular Volume 94.5 fl (85-98); Mean Platelet Volume 9.6 fL (7.4-10.4); Monocytes # 0.9 10^3/uL (0.2-0.9); Neutrophils # 2.91 10^3/uL (1.8-7.7); Nucleated Red Blood Cells % 0 %; Platelet Count 504 10^3/cmm (157-399); Red Blood Count 3.48 10^6/uL (3.85-5.65); Red Cell Distribution Width 15.9 % (12.1-15.1); White Blood Count 6.34 10^3/uL (3.29-11.43)
[2024-01-11 14:40] LABS: Alanine Aminotransferase 20 U/L (0-33); Albumin Level 3.5 g/dL (3.5-5.2); Alkaline Phosphatase 130 U/L (35-105); Anion Gap 14.8 (5-19); Aspartate Amino Transferase 13 U/L (0-32); Blood Urea Nitrogen 19 mg/dL (8-23); Calcium 8.6 mg/dL (8.5-10.5); Carbon Dioxide 23 mmol/L (22-29); Chloride 101 mmol/L (98-107); Globulin 4.1 g/dL (1.3-4.6); Glomerular Filtration Rate 100.3 mL/min (90-130); Glucose 147 mg/dL (65-115); Osmolality Calculated 285 mOsm/kg (285-295); Potassium 3.8 mmol/L (3.5-5.1); Sodium 135 mmol/L (136-145); Total Bilirubin 0.2 mg/dL (0.15-1.2); Total Protein 7.6 g/dL (6.6-8.7)
[2024-01-11 14:49] LABS: Erythrocyte Sedimentation Rate 77 mm/hr (0-15)
== END 2024-01-11 13:59 | disposition home or self-care (01) ==
LOC: LAB 14:06
PROVIDERS: PCP Electrodiagnostic Medicine; Visit Provider Internal Medicine Infectious Disease
DX: J18.9 Pneumonia, unspecified organism (principal)
CPT/HCPCS: 80053; 85025; 85651; 86140

== ENCOUNTER → 2024-01-20 09:18 | Outpatient (BNVA) | payer MEDICARE, OTHER, SELFPAY | PROVIDERS: PCP Electrodiagnostic Medicine; Visit Provider Internal Medicine Rheumatology | DX: M05.79 Rheumatoid arthritis with rheumatoid factor of multiple sites without organ or systems involvement (principal); Z79.899 Other long term (current) drug therapy; M81.0 Age-related osteoporosis without current pathological fracture; Z71.89 Other specified counseling | CPT/HCPCS: 99214 ==

== ENCOUNTER → 2024-06-21 08:55 | Outpatient (BNVA) | payer MEDICARE, OTHER, SELFPAY | PROVIDERS: PCP Electrodiagnostic Medicine; Visit Provider Internal Medicine Rheumatology | DX: M05.79 Rheumatoid arthritis with rheumatoid factor of multiple sites without organ or systems involvement (principal); M81.0 Age-related osteoporosis without current pathological fracture; Z79.899 Other long term (current) drug therapy; Z71.85 Encounter for immunization safety counseling | CPT/HCPCS: 36415; 80076; 82565; 85025; 85651; 86140; 99214 ==

== ENCOUNTER 2024-09-27 07:30 | Emergency (ER) | payer MEDICARE, OTHER, SELFPAY ==
[2024-09-27] VITALS (7 sets, daily range): BP systolic 122–143; BP diastolic 61–81; PULSE 69–81; RESP 18–22; TEMP 36.7; O2SAT 96–99; BMI 35.2
[2024-09-27 08:33] LABS: Basophils # 0.1 10^3/uL (0.0-0.1); Basophils % 0.5 %; Eosinophils # 0.1 10^3/uL (0.0-0.8); Eosinophils % 1.4 %; Hematocrit 38.5 % (36-47); Lymphocytes # 2.1 10^3/uL (0.8-4.8); Mean Corpuscular HGB Conc 31.9 g/dL (30-55); Mean Corpuscular Hemoglobin 30.7 pg (27-33); Mean Platelet Volume 9.7 fL (7.4-10.4); Monocytes # 0.8 10^3/uL (0.2-0.9); Monocytes % 7.9 %; Neutrophils # 6.85 10^3/uL (1.8-7.7); Neutrophils % 68.7 %; Nucleated Red Blood Cells % 0 %; Platelet Count 350 10^3/cmm (157-399); Red Blood Count 4.01 10^6/uL (3.85-5.65); Red Cell Distribution Width 14.2 % (12.1-15.1); White Blood Count 9.97 10^3/uL (3.29-11.43)
--- NOTE | 2024-09-27 08:42 | CTR_ITS ---
PROCEDURE INFORMATION: Exam: CT Abdomen And Pelvis With Contrast Exam date and time: 09/27/2024 9:30 AM Age: 64 years old Clinical indication: Abdominal pain; Localized; Right lower quadrant (rlq); Prior surgery; Surgery date: 6+ months; Surgery type: Hysterectomy; Additional info: Rlq pain TECHNIQUE: Imaging protocol: Computed tomography of the abdomen and pelvis with contrast. Radiation optimization: All CT scans at this facility use at least one of these dose optimization techniques: automated exposure control; mA and/or kV adjustment per patient size (includes targeted exams where dose is matched to clinical indication); or iterative reconstruction. Contrast material: OMNI 350; Contrast volume: 100 ml; Contrast route: INTRAVENOUS (IV); COMPARISON: CT abdomen pelvis w con* [id number] 11/18/2023 11:58 AM RADIATION DOSE METRICS: Total DLP (mGy-cm): 920.37 FINDINGS: Lungs: There is minimal linear scarring or atelectasis at the lung bases. Heart: Heart size is normal. There is a small pericardial effusion. Liver: There is diffuse fatty infiltration of the liver. The liver is otherwise normal. Gallbladder and biliary ducts: Normal. No calcified stones. No ductal dilation. Pancreas: Normal. No ductal dilation. Spleen: Normal. No splenomegaly. Adrenal glands: Normal. No mass. Kidneys and ureters: There is a small right renal cyst. No renal calculi are identified. No hydronephrosis is noted. Stomach and bowel: There are scattered colonic diverticula. No large bowel wall thickening is appreciated. No dilated loops of large or small bowel is appreciated. Appendix: No evidence of appendicitis. Intraperitoneal space: Unremarkable. No free air. No significant fluid collection. Vasculature: The aorta is normal in caliber. There is calcified plaque involving the aorta and its branch vessels. Lymph nodes: Unremarkable. No enlarged lymph nodes. Urinary bladder: Unremarkable as visualized. Reproductive: The uterus is not identified. Bones/joints: No blastic or lytic bony lesions are noted. There is an old-appearing compression deformity at L4. Soft tissues: There is a small fat filled periumbilical hernia. CT/CT abdomen pelvis w con* [id number] IMPRESSION: 1. Fatty infiltration of the liver. 2. Linear scarring or atelectasis at the lung bases. 3. Small pericardial effusion. 4. Scattered colonic diverticula. 5. Please see above comments for additional details. COMMENTS: Consistent with the [employer]'s Incidental Findings Committee white paper (J Am Cortney Radiol 2018): Any incidental renal lesion less than 1 cm or classified as too small to characterize, or any incidental cystic renal lesion characterized as simple-appearing, is likely benign. No follow-up imaging is recommended for these lesions per consensus recommendations based on imaging criteria.
--- NOTE | 2024-09-27 08:42 | USCV_ITS ---
Ifrah Marin Age: 64 Gender: F : 1960 Exam Date: 09/27/2024 09:36 Ordering Phys: Kyler Adam MD Technologist: Exam Location: [facility] [place] Indication: rt pain and swelling PROCEDURES: Venous duplex imaging was performed in only the right lower extremity. The following venous structures were evaluated: common femoral vein, profunda vein, proximal portion of the greater saphenous vein, superficial femoral vein, and the popliteal vein. In addition, the posterior tibial and peroneal trunk were evaluated. FINDINGS: Normal 2-D Doppler and augmentation and compressibility throughout the lower extremity venous structures. Additional imaging through the proximal calf veins also reveals no thrombus. Limited evaluation of the greater saphenous vein is patent with no thrombus. CONCLUSIONS No evidence of right lower extremity DVT. Altaf Allen MD (Electronically Signed) Final Date: 27 September 2024 10:56 S
--- NOTE | 2024-09-27 08:43 | ED_ITS ---
HPI - Female Genitourinary 2 General: Chief complaint: Urogenital-Female Stated complaint: uti infection not going away, swollen feet Time Seen by Provider: 09/27/24 07:32 Source: patient Mode of arrival: ambulatory Limitations: no limitations History of Present Illness: 64-year-old female states that she had b een diagnosed with UTI last week she has been on antibiotics states she has had some increasing pain in her right lower quadrant of her abdomen states pain sharp in nature rates it a 5 out of 10 states she is also had some swelling to her lower leg and has had a history of blood clots in the past. She denies any fever denies any vomiting Associated symptoms: Reports abdominal pain; Deny headache(s) or nausea Related Data Home Medications Medication Instructions Recorded Confirmed alprazolam 0.25 mg tablet 0.25 mg PO QAM anxiety 06/28/20 09/27/24 ascorbic acid (vitamin C) 500 mg 500 mg PO DAILY 11/18/23 09/27/24 tablet (Vitamin C) aspirin 81 mg tablet,delayed 81 mg PO QAM 11/18/23 09/27/24 release atorvastatin 40 mg tablet 40 mg PO QPM 11/18/23 09/27/24 calcium 600 mg (as 1 tab PO DAILY 11/18/23 09/27/24 carbonate)-vitamin D3 5 mcg (200 unit) tablet carboxymethylcellulose sodium 1 % 2 drp ophthalmic (eye) BID PRN 11/18/23 09/27/24 eye liquid gel drops (Refresh unknown Liquigel) cholecalciferol (vitamin D3) 50 50 mcg PO DAILY 11/18/23 09/27/24 mcg (2,000 unit) capsule citalopram 20 mg tablet 20 mg PO QAM 11/18/23 09/27/24 multivitamin 1 tab PO DAILY 11/18/23 09/27/24 amoxicillin 875 mg-potassium 1 tab PO BID 09/27/24 09/27/24 clavulanate 125 mg tablet apixaban 5 mg tablet (Eliquis) 5 mg PO BID 09/27/24 09/27/24 ciprofloxacin HCl 500 mg tablet 500 mg PO BID 09/27/24 09/27/24 metoprolol tartrate 25 mg tablet 25 mg PO BID 09/27/24 09/27/24 Previous Rx's Medication Instructions Recorded folic acid 1 mg tablet 3 mg (3 x 1 mg) PO DAILY #90 tabs 06/21/24 methotrexate sodium 2.5 mg tablet 10 mg (4 x 2.5 mg) PO Q7D #20 tabs 06/21/24 prednisone 10 mg tablet 10 mg PO DAILY #90 tabs 06/21/24 fluticasone propionate 50 1 spray intranasal BID #16 grams 09/25/24 mcg/actuation nasal spray,suspension (Flonase Allergy Relief) Allergies Allergy/AdvReac Type Severity Reaction Status Date / Time No Known Allergies Allergy Verified 09/19/24 10:21 Review of Systems 2 Const: Denies: fever(s), chills, body aches or change in appetite ENMT: Denies: throat pain or dental pain Card: Denies: chest pain Resp: Denies: dyspnea GI: Reports: abdominal pain; Denies: nausea, vomiting or diarrhea : Denies: dysuria Musc: Reports: extremity swelling; Denies: neck pain or back pain Skin/Breast: Denies: rash Neuro: Denies: headache(s) PFSH ED 2 PFSH: Medical History COVID-19 vaccine administered Seropositive rheumatoid arthritis of multiple sites Osteoporosis Other senior living (current) drug therapy High risk medication use Immunization counseling Rheumatoid arthritis with rheumatoid factor Leg cramps Surgical History History of hysterectomy Family History Other Arthritis Denies family history of Rheumatoid arthritis Lupus Social History Smoking and tobacco/nicotine status: never used tobacco/nicotine Physical Exam 2 Const: COMMON NORMALS: no acute distress, patient oriented x3 and healthy appearing HENMT: COMMON NORMALS: normocephalic and atraumatic HEAD & SCALP: n ormocephalic and atraumatic Eye: COMMON NORMALS: conjunctivae normal CONJUNCTIVA: Yes conjunctivae normal Neck/C-Spine: COMMON NORMALS: full ROM and supple Chest: COMMONS NORMALS: normal inspection of the chest Resp: COMMON NORMALS: normal respiratory effort Cardio: COMMON NORMALS: regular rate, regular rhythm and No murmurs present (Cardio) RATE: regular rate RHYTHM: regular rhythm GI: COMMON NORMALS: Normal to inspection, nondistended, normoactive bowel sounds present, Soft to palpation and no masses PALPATION: Yes Soft to palpation OTHER: Right lower quadrant tenderness mild Extremity: COMMON NORMALS: full ROM NARRATIVE EXTREMITY EXAM: Swelling noted to right lower leg distal pulses intact Neuro: COMMON NORMALS: patient oriented x3, moves all extremities and no focal motor deficits Psych: COMMON NORMALS: mental status grossly normal, Normal thought process present and cooperative THOUGHT PROCESS: Normal thought process present Skin: COMMON NORMALS: no rashes or lesions noted and no wounds GENERAL SKIN EXAM: no rashes or lesions noted Course 2 Vital Signs: Vital signs: Vital Signs Temperature 98.1 F 09/27/24 07:45 Pulse Rate 73 09/27/24 11:20 Respiratory Rate 19 H 09/27/24 11:20 Blood Pressure 134/61 09/27/24 11:20 Pulse Oximetry 96 09/27/24 11:20 Oxygen Delivery Me thod Room Air 09/27/24 11:15 MDM - Female Medical Decision Making Patient presents here with abdominal and leg pain blood work CT here shows no acute finding she does have a UTI we will give her Rocephin she is to continue antibiotics ultrasound showed no DVT. Medical Records I reviewed the patient's medical records. Lab Data I reviewed the patient's lab results. 09/27/24 08:10 09/27/24 08:10 Radiology Impressions Abdomen/Pelvis CT 09/27/24 08:42 IMPRESSION: 1. Fatty infiltration of the liver. 2. Linear scarring or atelectasis at the lung bases. 3. Small pericardial effusion. 4. Scattered colonic diverticula. 5. Please see above comments for additional details. COMMENTS: Consistent with the [employer]'s Incidental Findings Committee white paper (J Am Cortney Radiol 2018): Any incidental renal lesion less than 1 cm or classified as too small to characterize, or any incidental cystic renal lesion characterized as simple-appearing, is likely benign. No follow-up imaging is recommended for these lesions per consensus recommendations based on imaging criteria. Laboratory Results WBC 9.97 10^3/uL (3.29-11.43) 09/27/24 08:10 RBC 4.01 10^6/uL (3.85-5.65) 09/27/24 08:10 Hgb 12.30 g/dL (11.27-16.99) 09/27/24 08:10 Hct 38.5 % (36-47) 09/27/24 08:10 MCV 96.0 fl (85-98) 09/27/24 08:10 MCH 30.7 pg (27-33) 09/27/24 08:10 MCHC 31.9 g/dL (30-55) 09/27/24 08:10 RDW 14.2 % (12.1-15.1) 09/27/24 08:10 Plt Count 350 10^3/cmm (157-399) 09/27/24 08:10 MPV 9.7 fL (7.4-10.4) 09/27/24 08:10 Neut % (Auto) 68.7 % 09/27/24 08:10 Lymph % (Auto) 21.0 % 09/27/24 08:10 [place] % (Auto) 7.9 % 09/27/24 08:10 Eos % (Auto) 1.4 % 09/27/24 08:10 Baso % (Auto) 0.5 % 09/27/24 08:10 Neut # (Auto) 6.85 10^3/uL (1.8-7.7) 09/27/24 08:10 Lymph # (Auto) 2.1 10^3/uL (0.8-4.8) 09/27/24 08:10 [place] # (Auto) 0.8 10^3/uL (0.2-0.9) 09/27/24 08:10 Eos # (Auto) 0.1 10^3/uL (0.0-0.8) 09/27/24 08:10 Baso # (Auto) 0.1 10^3/uL (0.0-0.1) 09/27/24 08:10 Nucleated RBC % (auto) 0 % 09/27/24 08:10 Nucleated RBCs # 0.0 /100WBC 09/27/24 08:10 Sodium 139 mmol/L (136-145) 09/27/24 08:10 Potassium 3.8 mmol/L (3.5-5.1) 09/27/24 08:10 Chloride 102 mmol/L (98-107) 09/27/24 08:10 Carbon Dioxide 26 mmol/L (22-29) 09/27/24 08:10 Anion Gap 14.8 (5-19) 09/27/24 08:10 BUN 20 mg/dL (8-23) 09/27/24 08:10 Creatinine 0.8 mg/dL (0.5-0.9) 09/27/24 08:10 GFR Calculation 71.8 mL/min (90-130) L 09/27/24 08:10 Glucose 93 mg/dL (65-115) 09/27/24 08:10 Calculated Osmolality 290 mOsm/kg (285-295) 09/27/24 08:10 Calcium 9.4 mg/dL (8.5-10.5) 09/27/24 08:10 Total Bilirubin 0.4 mg/dL (0.15-1.2) 09/27/24 08:10 AST 17 U/L (0-32) 09/27/24 08:10 ALT 27 U/L (0-33) 09/27/24 08:10 Alkaline Phosphatase 73 U/L (35-105) 09/27/24 08:10 NT-Pro-B Natriuret Pep 301 pg/mL (0-125) H 09/27/24 08:10 Total Protein 6.8 g/dL (6.6-8.7) 09/27/24 08:10 Albumin 4.0 g/dL (3.5-5.2) 09/27/24 08:10 Globulin 2.8 g/dL (1.3-4.6) 09/27/24 08:10 Urine Color [place] (Yellow) A 09/27/24 08:55 Urine Appearance Turbid (CLEAR) A 09/27/24 08:55 Urine pH 5.5 (5-7) 09/27/24 08:55 Ur Specific [place] 1.027 (1.005-1.030) 09/27/24 08:55 Urine Protein 1+ (Negative) A 09/27/24 08:55 Urine Glucose (UA) Negative (Normal) 09/27/24 08:55 Urine Ketones Negative (Negative) 09/27/24 08:55 Urine Blood 3+ (Negative) A 09/27/24 08:55 Urine Nitrate Positive (Negative) A 09/27/24 08:55 Urine Bilirubin 1+ (Negative) H 09/27/24 08:55 Urine Urobilinogen 1.0 mg/dL (Negative) 09/27/24 08:55 Ur Leukocyte Esterase 3+ (Negative) A 09/27/24 08:55 Urine RBC 0-4 /hpf (0-2) H 09/27/24 08:55 Urine WBC 0-4 /hpf (0-5) H 09/27/24 08:55 Ur Squamous Epith Cells 10-15 /hpf (0-5) H 09/27/24 08:55 Amorphous Sediment Not Reportable 09/27/24 08:55 Urine Bacteria 2+ /hpf (NONE) H 09/27/24 08:55 Urine Mucus 1+ /hpf 09/27/24 08:55 All radiology interpretation(s) finalized by discharge Discharge Plan Discharge Patient Disposition: Home Clinical Impression: Abdominal pain, Urinary tract infection Condition: Stable Prescriptions: No Action alprazolam 0.25 mg tablet 0.25 mg PO QAM folic acid 1 mg tablet 3 mg PO DAILY Qty: 90 5RF methotrexate sodium 2.5 mg tablet 10 mg PO Q7D Qty: 20 4RF Rx Instructions: on thu prednisone 10 mg tablet 10 mg PO DAILY Qty: 90 1RF fluticasone propionate [Flonase Allergy Relief] 50 mcg/actuation spray,suspension 1 spray intranasal BID Qty: 16 0RF Rx Instructions: administer into each nostril multivitamin Tablet 1 tab PO DAILY atorvastatin 40 mg tablet 40 mg PO QPM calcium carbonate-vitamin D3 [Calcium + D] 600 mg-5 mcg (200 unit) Tablet 1 tab PO DAILY aspirin [Aspir-81] 81 mg Tablet,Delayed Release (Dr/Ec) 81 mg PO QAM citalopram 20 mg tablet 20 mg PO QAM ascorbic acid (vitamin C) [Vitamin C] 500 mg Tablet 500 mg PO DAILY carboxymethylcellulose sodium [Refresh Liquigel] 1 % Drops, Liquid Gel 2 drp OPHTHALMIC (EYE) BID PRN (Reason: unknown) cholecalciferol (vitamin D3) 50 mcg (2,000 unit) capsule 50 mcg PO DAILY ciprofloxacin HCl 500 mg tablet 500 mg PO BID amoxicillin-pot clavulanate 875-125 mg tablet 1 tab PO BID metoprolol tartrate 25 mg tablet 25 mg PO BID Eliquis 5 mg tablet 5 mg PO BID Discharge Orders: Discharge ED (Routine); Ordered 09/27/24 Ordered By: Kyler Adam Referrals: Cipriano Allred, [Primary Care Provider] - 4-7 days Discharge Diet: Advance as tolerated Discharge Activity: Resume usual activity Patient Instructions: Urinary Tract Infection in Women (ED), Abdominal Pain (ED) Coding Level of Care Code ED Chassis Wirer for Analy [place]
[2024-09-27 09:03] LABS: Alanine Aminotransferase 27 U/L (0-33); Alkaline Phosphatase 73 U/L (35-105); Anion Gap 14.8 (5-19); Aspartate Amino Transferase 17 U/L (0-32); Blood Urea Nitrogen 20 mg/dL (8-23); Calcium 9.4 mg/dL (8.5-10.5); Carbon Dioxide 26 mmol/L (22-29); Chloride 102 mmol/L (98-107); Globulin 2.8 g/dL (1.3-4.6); Glomerular Filtration Rate 71.8 mL/min (90-130); Glucose 93 mg/dL (65-115); NT Pro B Type Natriuretic Pept 301 pg/mL (0-125); Osmolality Calculated 290 mOsm/kg (285-295); Potassium 3.8 mmol/L (3.5-5.1); Sodium 139 mmol/L (136-145); Total Bilirubin 0.4 mg/dL (0.15-1.2); Total Protein 6.8 g/dL (6.6-8.7)
[2024-09-27] MEDS: ondansetron 2 mg/ML SDV 2 mL 4 MG IVP (09:11)
[2024-09-27] MEDS: iohexol 350 mg/mL 500 mL Btl (per mL) IV (09:31)
[2024-09-27 10:08] LABS: Bilirubin Urine 1+ (Negative); Blood Urine 3+ (Negative); Glucose Urine UA Negative (Normal); Ketones Urine Negative (Negative); Leukocyte Esterase Urine 3+ (Negative); Nitrate Urine Positive (Negative); Protein Urine 1+ (Negative); Specific Gravity, Urine 1.027 (1.005-1.030); Urine Appearance Turbid (CLEAR); pH Urine 5.5 (5-7)
[2024-09-27 10:10] LABS: Add Urine Microscopic? YES
[2024-09-27] MEDS: morphine 4 mg/mL SDV 1 mL IVP (10:23)
[2024-09-27 10:24] LABS: Bacteria Urine 2+ /hpf; RBC Urine 0-4 /hpf (0-2); UA Manual Slide Review YES; UA Slide Review UA Slide Review Perf; WBC Urine 0-4 /hpf (0-5)
[2024-09-27 10:25] LABS: Mucus Urine 1+ /hpf
[2024-09-27 10:27] LABS: Urine Color Orange (Yellow)
[2024-09-27] MEDS: cefTRIAXone 1,000 mg SDV 1000 MG IVP (11:02)
== END 2024-09-27 11:30 | disposition home or self-care (01) ==
PROVIDERS: Emergency Provider Emergency Medicine; PCP Electrodiagnostic Medicine
DX: R10.9 Unspecified abdominal pain (principal); N39.0 Urinary tract infection, site not specified; Z79.82 Long term (current) use of aspirin; Z79.01 Long term (current) use of anticoagulants
CPT/HCPCS: 36415; 74177; 80053; 81001; 83880; 85025; 93971; 96374; 96375; 99285; J0696; J2270; J2405

== ENCOUNTER 2024-09-30 18:08 | Emergency (ER) | payer MEDICARE, OTHER, SELFPAY ==
[2024-09-30 18:22] VITALS: BP 162/72; PULSE 66; RESP 16; TEMP 36.5; O2SAT 95
--- NOTE | 2024-09-30 18:34 | ED_ITS ---
HPI - Female Genitourinary 2 General: Chief complaint: Urogenital-Female Stated complaint: Rt Leg Pain up to Back Time Seen by Provider: 09/30/24 18:13 History of Present Illness: 64-year-old female presents emergency ro om with complaints of right sided back pain with pain radiating into the right upper lateral thigh. She was seen couple days ago with similar complaints had a workup venous duplexes, also had a CT of the abdomen/pelvis done. No evidence of any clots at that time. 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 No recent fall or trauma. No urinary retention or fecal incontinence. Patient recently had UTI has been treated with a couple rounds of antibiotics is having symptoms again. During most recent visit a repeat urine was abnormal. Patient was initiating antibiotics that time we do not have any cultures from the chart from recent UTIs. Associated symptoms: Deny abdominal pain Related Data Home Medications Medication Instructions Recorded Confirmed alprazolam 0.25 mg tablet 0.25 mg PO QAM anxiety 06/28/20 09/27/24 ascorbic acid (vitamin C) 500 mg 500 mg PO DAILY 11/18/23 09/27/24 tablet (Vitamin C) aspirin 81 mg tablet,delayed 81 mg PO QAM 11/18/23 09/27/24 release atorvastatin 40 mg tablet 40 mg PO QPM 11/18/23 09/27/24 calcium 600 mg (as 1 tab PO DAILY 11/18/23 09/27/24 carbonate)-vitamin D3 5 mcg (200 unit) tablet carboxymethylcellulose sodium 1 % 2 drp ophthalmic (eye) BID PRN 11/18/23 09/27/24 eye liquid gel drops (Refresh unknown Liquigel) cholecalciferol (vitamin D3) 50 50 mcg PO DAILY 11/18/23 09/27/24 mcg (2,000 unit) capsule citalopram 20 mg tablet 20 mg PO QAM 11/18/23 09/27/24 multivitamin 1 tab PO DAILY 11/18/23 09/27/24 apixaban 5 mg tablet (Eliquis) 5 mg PO BID 09/27/24 09/27/24 metoprolol tartrate 25 mg tablet 25 mg PO BID 09/27/24 09/27/24 Previous Rx's Medication Instructions Recorded folic acid 1 mg tablet 3 mg (3 x 1 mg) PO DAILY #90 tabs 06/21/24 methotrexate sodium 2.5 mg tablet 10 mg (4 x 2.5 mg) PO Q7D #20 tabs 06/21/24 prednisone 10 mg tablet 10 mg PO DAILY #90 tabs 06/21/24 fluticasone propionate 50 1 spray intranasal BID #16 grams 09/25/24 mcg/actuation nasal spray,suspension (Flonase Allergy Relief) cefdinir 300 mg capsule 300 mg PO BID 10 days #20 caps 09/30/24 diclofenac sodium 75 mg 75 mg PO Q12H PRN pain #20 tabs 09/30/24 tablet,delayed release hydrocodone 5 mg-acetaminophen 325 1 tab PO Q6H PRN pain #14 tabs 09/30/24 mg tablet prednisone 20 mg tablet 20 mg PO TID #15 tabs 09/30/24 tizanidine 4 mg tablet 4 mg PO Q6H PRN muscle spasticity 09/30/24 #20 tabs Allergies Allergy/AdvReac Type Severity Reaction Status Date / Time No Known Allergies Allergy Verified 09/30/24 18:26 Review of Systems 2 Const: Denies: fever(s) or chills Card: Denies: chest pain Resp: Denies: dyspnea GI: Denies: abdominal pain : Denies: dysuria, urinary frequency or urinary urgency Musc: Reports: back pain and extremity pain; Denies: neck pain or extremity swelling Skin/Breast: Denies: rash PFSH ED 2 PFSH: Medical History COVID-19 vaccine administered Seropositive rheumatoid arthritis of multiple sites Osteoporosis 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 High risk medication use Immunization counseling Rheumatoid arthritis with rheumatoid factor Leg cramps Surgical History History of hysterectomy Family History Other Arthritis Denies family history of Rheumatoid arthritis Lupus Social History Smoking and tobacco/nicotine status: never used tobacco/nicotine Physical Exam 2 Const: COMMON NORMALS: no acute distress GENERAL APPEARANCE: cooperative and comfortable ORIENTATION/CONSCIOUSNESS: Yes awake, Yes oriented to person, Yes oriented to place and Yes oriented to time HENMT: COMMON NORMALS: normocephalic, atraumatic and hearing grossly normal bilaterally HEAD & SCALP: normocephalic and atraumatic Resp: COMMON NORMALS: normal respiratory effort, No retractions, No use of accessory muscles and clear to auscultation bilaterally AUSCULTATION: clear to auscultation bilaterally Cardio: COMMON NORMALS: regular rate, regular rhythm and No murmurs present (Cardio) RATE: regular rate RHYTHM: regular rhythm GI: COMMON NORMALS: Soft to palpation and No hepatosplenomegaly present A USCULTATION: Yes normoactive bowel sounds PALPATION: Yes Soft to palpation, No Tenderness to palpation present (GI), No Guarding due to palpation present (GI) and Yes No hepatosplenomegaly present Extremity: COMMON NORMALS: normal to inspection, capillary refill normal, no clubbing, cyanosis or edema, no calf tenderness and no pedal edema Neuro: SENSORIUM/ORIENTATION: Yes oriented to person, Yes oriented to place and Yes oriented to time OTHER: Straight leg raising negative deep tendon reflex patellar tendons +2/4. Dorsum plantarflexion strength 5/5 sensation lower extremities normal neurovascular intact no edema Homans negative Skin: COMMON NORMALS: no rashes or lesions noted GENERAL SKIN EXAM: no rashes or lesions noted Course 2 Vital Signs: Vital signs: Vital Signs Temperature 97.7 F 09/30/24 18:22 Pulse Rate 87 09/30/24 21:14 Respiratory Rate 19 H 09/30/24 20:21 Blood Pressure 157/95 09/30/24 21:14 Pulse Oximetry 97 09/30/24 21:14 Oxygen Delivery Me thod Room Air 09/30/24 20:21 MDM - Female Medical Decision Making Patient has recurrent urinary tract infection appears she did clear at last time of follow-up UA appeared normal and she was seen in the emergency room a few days ago. We do not have any cultures to base antibiotic selection off from we will put her on cefdinir now we did culture the urine gave her a gram Rocephin. She does not have any leukocytosis. Her right leg pain is improved. She has no cauda equina syndromes at this time. Will discharge her home on steroids muscle relaxers hydrocodone and diclofenac have her follow-up with her primary care doctor may need further conservative management or evaluation pending response. Given the fact patient had a normal venous duplex 3 days ago was continued to take her Eliquis and her no findings suggestive of DVT did not repeat venous duplex. Medical Records I reviewed the patient's medical records. Lab Data I reviewed the patient's lab results. 09/30/24 20:18 09/30/24 20:18 Laboratory Results WBC 11.12 10^3/uL (3.29-11.43) 09/30/24 20:18 RBC 3.85 10^6/uL (3.85-5.65) 09/30/24 20:18 Hgb 12.30 g/dL (11.27-16.99) 09/30/24 20:18 Hct 37.5 % (36-47) 09/30/24 20:18 MCV 97.4 fl (85-98) 09/30/24 20:18 MCH 31.9 pg (27-33) 09/30/24 20:18 MCHC 32.8 g/dL (30-55) 09/30/24 20:18 RDW 14.3 % (12.1-15.1) 09/30/24 20:18 Plt Count 331 10^3/cmm (157-399) 09/30/24 20:18 MPV 9.4 fL (7.4-10.4) 09/30/24 20:18 Neut % (Auto) 66.6 % 09/30/24 20:18 Lymph % (Auto) 23.7 % 09/30/24 20:18 [place] % (Auto) 8.3 % 09/30/24 20:18 Eos % (Auto) 0.8 % 09/30/24 20:18 Baso % (Auto) 0.3 % 09/30/24 20:18 Neut # (Auto) 7.42 10^3/uL (1.8-7.7) 09/30/24 20:18 Lymph # (Auto) 2.6 10^3/uL (0.8-4.8) 09/30/24 20:18 [place] # (Auto) 0.9 10^3/uL (0.2-0.9) 09/30/24 20:18 Eos # (Auto) 0.1 10^3/uL (0.0-0.8) 09/30/24 20:18 Baso # (Auto) 0.0 10^3/uL (0.0-0.1) 09/30/24 20:18 Nucleated RBC % (auto) 0 % 09/30/24 20:18 Nucleated RBCs # 0.0 /100WBC 09/30/24 20:18 Sodium 138 mmol/L (136-145) 09/30/24 20:18 Potassium 3.8 mmol/L (3.5-5.1) 09/30/24 20:18 Chloride 102 mmol/L (98-107) 09/30/24 20:18 Carbon Dioxide 23 mmol/L (22-29) 09/30/24 20:18 Anion Gap 16.8 (5-19) 09/30/24 20:18 BUN 21 mg/dL (8-23) 09/30/24 20:18 Creatinine 0.8 mg/dL (0.5-0.9) 09/30/24 20:18 GFR Calculation 71.8 mL/min (90-130) L 09/30/24 20:18 Glucose 81 mg/dL (65-115) 09/30/24 20:18 Calculated Osmolality 288 mOsm/kg (285-295) 09/30/24 20:18 Calcium 9.2 mg/dL (8.5-10.5) 09/30/24 20:18 Total Bilirubin 0.3 mg/dL (0.15-1.2) 09/30/24 20:18 AST 15 U/L (0-32) 09/30/24 20:18 ALT 21 U/L (0-33) 09/30/24 20:18 Alkaline Phosphatase 87 U/L (35-105) 09/30/24 20:18 Total Protein 6.9 g/dL (6.6-8.7) 09/30/24 20:18 Albumin 4.0 g/dL (3.5-5.2) 09/30/24 20:18 Globulin 2.9 g/dL (1.3-4.6) 09/30/24 20:18 Urine Color Yellow (Yellow) 09/30/24 19:23 Urine Appearance Cloudy (CLEAR) A 09/30/24 19:23 Urine pH 5.5 (5-7) 09/30/24 19:23 Ur Specific [place] 1.036 (1.005-1.030) H 09/30/24 19:23 Urine Protein Trace (Negative) A 09/30/24 19:23 Urine Glucose (UA) Negative (Normal) 09/30/24 19:23 Urine Ketones 1+ (Negative) H 09/30/24 19:23 Urine Blood 3+ (Negative) A 09/30/24 19:23 Urine Nitrate Negative (Negative) 09/30/24 19:23 Urine Bilirubin Negative (Negative) 09/30/24 19:23 Urine Urobilinogen 1.0 mg/dL (Negative) 09/30/24 19:23 Ur Leukocyte Esterase 2+ (Negative) A 09/30/24 19:23 Urine RBC 51-100 /hpf (0-2) H 09/30/24 19:23 Urine WBC >100 /hpf (0-5) H 09/30/24 19:23 Ur Squamous Epith Cells 11-20 /hpf (0-5) 09/30/24 19:23 Amorphous Sediment Not Reportable 09/30/24 19:23 Urine Bacteria None seen /hpf (NONE) 09/30/24 19:23 Hyaline Casts 6.17 /lpf 09/30/24 19:23 No radiology studies performed this visit Discharge Plan Discharge Patient Disposition: Home Clinical Impression: Urinary tract infection, Lumbar radiculopathy Condition: Stable Prescriptions: New tizanidine 4 mg tablet 4 mg PO Q6H PRN (Reason: muscle spasticity) Qty: 20 0RF Rx Instructions: do not exceed 3 doses per 24 hrs hydrocodone-acetaminophen 5-325 mg tablet 1 tab PO Q6H PRN (Reason: pain) Qty: 14 0RF prednisone 20 mg tablet 20 mg PO TID Qty: 15 0RF Rx Instructions: 1 p.o. 3 times daily x3 days, 1 p.o. twice daily x2 days, 1 p.o. daily x2 days cefdinir 300 mg capsule 300 mg PO BID 10 Days Qty: 20 0RF diclofenac sodium 75 mg tablet,delayed release (DR/EC) 75 mg PO Q12H PRN (Reason: pain) Qty: 20 0RF Discontinued ciprofloxacin HCl 500 mg tablet 500 mg PO BID amoxicillin-pot clavulanate 875-125 mg tablet 1 tab PO BID No Action alprazolam 0.25 mg tablet 0.25 mg PO QAM folic acid 1 mg tablet 3 mg PO DAILY Qty: 90 5RF methotrexate sodium 2.5 mg tablet 10 mg PO Q7D Qty: 20 4RF Rx Instructions: on thu prednisone 10 mg tablet 10 mg PO DAILY Qty: 90 1RF fluticasone propionate [Flonase Allergy Relief] 50 mcg/actuation spray,suspension 1 spray intranasal BID Qty: 16 0RF Rx Instructions: administer into each nostril multivitamin Tablet 1 tab PO DAILY atorvastatin 40 mg tablet 40 mg PO QPM calcium carbonate-vitamin D3 [Calcium + D] 600 mg-5 mcg (200 unit) Tablet 1 tab PO DAILY aspirin [Aspir-81] 81 mg Tablet,Delayed Release (Dr/Ec) 81 mg PO QAM citalopram 20 mg tablet 20 mg PO QAM ascorbic acid (vitamin C) [Vitamin C] 500 mg Tablet 500 mg PO DAILY carboxymethylcellulose sodium [Refresh Liquigel] 1 % Drops, Liquid Gel 2 drp OPHTHALMIC (EYE) BID PRN (Reason: unknown) cholecalciferol (vitamin D3) 50 mcg (2,000 unit) capsule 50 mcg PO DAILY metoprolol tartrate 25 mg tablet 25 mg PO BID Eliquis 5 mg tablet 5 mg PO BID Discharge Orders: Discharge ED (Routine); Ordered 09/30/24 Ordered By: Art Allen Referrals: Cipriano Allred DO [Primary Care Provider] - Discharge Diet: Usual diet Discharge Activity: Increase activity as tolerated Patient Instructions: Opioid Safety, Pain Management Activity Restrictions/Additional Instructions: Thank you for choosing [facility] for your healthcare needs today. It is very important that you follow up as instructed or that you return to the Emergency Department should you have concerns or if your condition changes or worsens in any way. You were seen in the emergency room with complaints of back pain right leg radicular pain. (Pain radiating from the back down into the leg from a pinched nerve). In addition to this you were noted to have a recurrent urinary tract infection. For your back pain recommend a steroid taper. You were given a steroid shot here today you should start the steroid taper tomorrow. In addition to this you were given a muscle relaxer and pain medications and an anti-inflammatory take these as needed. For your bladder infection recommend cefdinir 1 tablet twice a day we reviewed the charts are no previous cultures to base antibiotic choice off of we will have to initiate this antibiotic and review culture when it becomes available. Coding Level of Care Code ED Tangled Yarn Spool Straightener for Analy [place]
[2024-09-30 18:39] VITALS: BP 132/87; PULSE 77; O2SAT 98
[2024-09-30] MEDS: ketorolac 30 mg/mL INJ IVP (19:18)
[2024-09-30] MEDS: orphenadrine 30 mg/mL Inj 2 mL 60 MG IVP (19:18)
[2024-09-30] MEDS: dexamethasone 10 mg/mL INJ IVP (19:18)
[2024-09-30 19:35] LABS: Bilirubin Urine Negative (Negative); Blood Urine 3+ (Negative); Glucose Urine UA Negative (Normal); Ketones Urine 1+ (Negative); Leukocyte Esterase Urine 2+ (Negative); Nitrate Urine Negative (Negative); Protein Urine Trace (Negative); Urine Appearance Cloudy (CLEAR); Urine Color Yellow (Yellow); pH Urine 5.5 (5-7)
[2024-09-30 19:40] LABS: Add Urine Microscopic? YES; Bacteria Urine None Seen /hpf; Hyaline Casts Urine 6.17 /lpf; RBC Urine 51-100 /hpf (0-2); WBC Urine >100 /hpf (0-5)
[2024-09-30 19:56] LABS: Specific Gravity, Urine 1.036 (1.005-1.030)
[2024-09-30 19:57] LABS: Add Urine Culture? Yes
[2024-09-30 20:19] VITALS: RESP 19
[2024-09-30] MEDS: morphine 4 mg/mL SDV 1 mL IVP (20:19)
[2024-09-30] MEDS: cefTRIAXone 1,000 mg SDV 1000 MG IVP (20:20)
[2024-09-30 20:21] VITALS: BP 151/87; PULSE 65; RESP 19; O2SAT 94
[2024-09-30 20:26] LABS: Basophils % 0.3 %; Eosinophils # 0.1 10^3/uL (0.0-0.8); Eosinophils % 0.8 %; Hematocrit 37.5 % (36-47); Lymphocytes # 2.6 10^3/uL (0.8-4.8); Lymphocytes % 23.7 %; Mean Corpuscular HGB Conc 32.8 g/dL (30-55); Mean Corpuscular Hemoglobin 31.9 pg (27-33); Mean Corpuscular Volume 97.4 fl (85-98); Mean Platelet Volume 9.4 fL (7.4-10.4); Monocytes # 0.9 10^3/uL (0.2-0.9); Monocytes % 8.3 %; Neutrophils # 7.42 10^3/uL (1.8-7.7); Neutrophils % 66.6 %; Nucleated Red Blood Cells % 0 %; Platelet Count 331 10^3/cmm (157-399); Red Blood Count 3.85 10^6/uL (3.85-5.65); Red Cell Distribution Width 14.3 % (12.1-15.1); White Blood Count 11.12 10^3/uL (3.29-11.43)
[2024-09-30 20:40] LABS: Alanine Aminotransferase 21 U/L (0-33); Alkaline Phosphatase 87 U/L (35-105); Anion Gap 16.8 (5-19); Aspartate Amino Transferase 15 U/L (0-32); Blood Urea Nitrogen 21 mg/dL (8-23); Calcium 9.2 mg/dL (8.5-10.5); Carbon Dioxide 23 mmol/L (22-29); Chloride 102 mmol/L (98-107); Globulin 2.9 g/dL (1.3-4.6); Glomerular Filtration Rate 71.8 mL/min (90-130); Glucose 81 mg/dL (65-115); Osmolality Calculated 288 mOsm/kg (285-295); Potassium 3.8 mmol/L (3.5-5.1); Sodium 138 mmol/L (136-145); Total Bilirubin 0.3 mg/dL (0.15-1.2); Total Protein 6.9 g/dL (6.6-8.7)
[2024-09-30 21:14] VITALS: BP 157/95; PULSE 87; O2SAT 97
== END 2024-09-30 21:15 | disposition home or self-care (01) ==
PROVIDERS: Emergency Provider Family Medicine; PCP Electrodiagnostic Medicine
DX: N39.0 Urinary tract infection, site not specified (principal); M54.16 Radiculopathy, lumbar region; Z79.82 Long term (current) use of aspirin; Z79.01 Long term (current) use of anticoagulants
CPT/HCPCS: 36415; 80053; 81001; 85025; 87040; 87086; 96374; 96375; 99284; J0696; J1100; J1885; J2270; J2360

== ENCOUNTER 2024-11-01 23:59 | Emergency (ER) | payer MEDICARE, OTHER, SELFPAY ==
[2024-11-02 00:13] VITALS: BP 127/65; PULSE 75; RESP 18; TEMP 36.7; O2SAT 99; BMI 33.3
--- NOTE | 2024-11-02 00:17 | ED_ITS ---
HPI - Back Pain/Injury General: Chief Complaint: Back Pain/Injury Stated Complaint: Back Pain Time Seen by Provider: 11/02/24 00:01 Source: patient and family Mode of arrival: wheelchair Limitations: no limitations History of Present Illness: Patient is a 64-year-old female presents to ED today along with family for concerns of right-sided back pain. Patient states symptoms been present over the past month or so. She describes pain to the right side of her back that radiates down into her buttock and down her right lower extremity. Patient has been seen here in our emergency department and placed on anti-inflammatories and muscle relaxers she states these medications are not helping. She was also prescribed hydrocodone at some point which gave her minimal relief. She has chronic swelling to her legs-this is unchanged. She has had recent issues with UTIs and states that everybody seems to be focusing on that . She did see urology yesterday for that and had a cystoscopy and told that her urine on that visit was clear . She has also reportedly seen her PCP Dr. Allred for her back pain. She denies numbness, tingling, weakness to her lower extremities. She is not having any bowel or bladder incontinence/retention. MD elicited complaint: back pain Onset (ago): week(s) Timing: constant Severity: severe Location: lumbar spine and right lower back Radiation: right upper leg and right leg below the knee Exacerbating factors: movement and walking Relieving factors: none Associated symptoms: Deny abdominal pain, chills, fatigue, fecal incontinence or fever(s) Treatments prior to arrival: NSAIDS, prescription analgesics and other medications Work related injury: No Related Data Home Medications Medication Instructions Recorded Confirmed alprazolam 0.25 mg tablet 0.25 mg PO QAM anxiety 06/28/20 10/18/24 ascorbic acid (vitamin C) 500 mg 500 mg PO DAILY 11/18/23 10/18/24 tablet (Vitamin C) aspirin 81 mg tablet,delayed 81 mg PO QAM 11/18/23 10/18/24 release atorvastatin 40 mg tablet 40 mg PO QPM 11/18/23 10/18/24 calcium 600 mg (as 1 tab PO DAILY 11/18/23 10/18/24 carbonate)-vitamin D3 5 mcg (200 unit) tablet carboxymethylcellulose sodium 1 % 2 drp ophthalmic (eye) BID PRN 11/18/23 10/18/24 eye liquid gel drops (Refresh unknown Liquigel) cholecalciferol (vitamin D3) 50 50 mcg PO DAILY 11/18/23 10/18/24 mcg (2,000 unit) capsule citalopram 20 mg tablet 20 mg PO QAM 11/18/23 10/18/24 multivitamin 1 tab PO DAILY 11/18/23 10/18/24 apixaban 5 mg tablet (Eliquis) 5 mg PO BID 09/27/24 10/18/24 metoprolol tartrate 25 mg tablet 25 mg PO BID 09/27/24 10/18/24 Previous Rx's Medication Instructions Recorded folic acid 1 mg tablet 3 mg (3 x 1 mg) PO DAILY #90 tabs 06/21/24 fluticasone propionate 50 1 spray intranasal BID #16 grams 09/25/24 mcg/actuation nasal spray,suspension (Flonase Allergy Relief) diclofenac sodium 75 mg 75 mg PO Q12H PRN pain #20 tabs 09/30/24 tablet,delayed release tizanidine 4 mg tablet 4 mg PO Q6H PRN muscle spasticity 09/30/24 #20 tabs methotrexate sodium 2.5 mg tablet 10 mg (4 x 2.5 mg) PO Q7D #20 tabs 10/04/24 hydroxychloroquine 200 mg tablet 200 mg PO BID #60 tabs 10/18/24 hydrocodone 5 mg-acetaminophen 325 1 - 2 tab PO .q4-q6 PRN pain #20 25 mg tablet tabs Allergies Allergy/AdvReac Type Severity Reaction Status Date / Time No Known Allergies Allergy Verified 11/02/24 00:18 Review of Systems Const: Denies: fever(s), chills, body aches, fatigue or malaise Card: Denies: chest pain Resp: Denies: dyspnea GI: Denies: abdominal pain or fecal incontinence : Denies: flank pain or urinary incontinence Musc: Reports: back pain and extremity swelling (chronic); Denies: neck pain, joint pain, joint swelling, joint redness or joint warmth Neuro: Denies: numbness in extremities, weakness in extremities or sensory changes PFSH ED PFSH: Medical History COVID-19 vaccine administered Seropositive rheumatoid arthritis of multiple sites Osteoporosis 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 High risk medication use Immunization counseling Rheumatoid arthritis with rheumatoid factor Leg cramps Surgical History History of hysterectomy Family History Other Arthritis Denies family history of Rheumatoid arthritis Lupus Social History Smoking and tobacco/nicotine status: current every day tobacco/nicotine user cigarettes Physical Exam Const: COMMON NORMALS: no acute distress, patient oriented x3, no limitations, alert and well nourished GENERAL APPEARANCE: cooperative Resp: COMMON NORMALS: normal respiratory effort and clear to auscultation bilaterally AUSCULTATION: clear to auscultation bilaterally Cardio: COMMON NORMALS: regular rate and regular rhythm RATE: regular rate RHYTHM: regular rhythm GI: COMMON NORMALS: Normal to inspection, nondistended, normoactive bowel sounds present, Soft to palpation and non-tender PALPATION: Yes Soft to palpation : COMMON NORMALS: Yes no CVA tenderness BLADDER/KIDNEY EXAM: Yes no CVA tenderness Back/Pelvis: COMMON NORMALS: no CVA tenderness LUMBAR SPINE/LOWER BACK: Yes lumbar spinal tenderness, Yes paraspinal muscle tenderness (across lower back) and Yes straight leg raise negative bilaterally PELVIS: Yes buttocks normal SACROILIAC JOINTS: Yes SI joint(s) abnormal SI joint details: tender to palpation (R) SACRUM: no tenderness COCCYX: no tenderness Extremity: COMMON NORMALS: full ROM, capillary refill normal and no calf tenderness GENERAL: Yes normal exam except as noted OTHER: chronic LE non-pitting edema Neuro: COMMON NORMALS: patient oriented x3, moves all extremities, no focal motor deficits and no sensory deficits noted SENSORIUM/ORIENTATION: Yes alert MOTOR EXAM: 5/5 motor strength present throughout Course Vital Signs: Vital signs: Vital Signs Temperature 98.1 F 11/02/24 00:13 Pulse Rate 86 11/02/24 01:10 Respiratory Rate 16 11/02/24 01:10 Blood Pressure 133/59 11/02/24 01:10 Pulse Oximetry 100 11/02/24 01:10 Oxygen Delivery Me thod Room Air 11/02/24 01:10 MDM - Back Pain/Injury Medical Decision Making Patient has no red flag symptoms on history or physical examination. She has had lumbar XRs performed within the last month or so. I do not see any indication for emergent advanced imaging. At some point she may require MRI imaging. We discussed following up with her primary care provider. Possible referral to Dr. Cassidy, pain management, physical therapy might be appropriate. Patient states she has tried anti-inflammatories and muscle relaxers without relief. Will attempt to give her some relief with pain medications. I would like her to follow-up with primary care. Discussed further options could include referral to pain management, further imaging, physical therapy, etc. Differential Diagnosis Likely lumbar radiculopathy Medical Records I reviewed the patient's medical records. No radiology studies performed this visit Discharge Plan Discharge Patient Disposition: Home Clinical Impression: Lumbar radiculopathy Condition: Stable Prescriptions: Changed hydrocodone-acetaminophen 5-325 mg tablet 1 - 2 tab PO .q4-q6 PRN (Reason: pain) Qty: 20 0RF No Action alprazolam 0.25 mg tablet 0.25 mg PO QAM hydroxychloroquine 200 mg tablet 200 mg PO BID Qty: 60 3RF folic acid 1 mg tablet 3 mg PO DAILY Qty: 90 5RF fluticasone propionate [Flonase Allergy Relief] 50 mcg/actuation spray,suspension 1 spray intranasal BID Qty: 16 0RF Rx Instructions: administer into each nostril methotrexate sodium 2.5 mg tablet 10 mg PO Q7D Qty: 20 4RF Hold Instructions: Doctor's Order Rx Instructions: on thu multivitamin Tablet 1 tab PO DAILY atorvastatin 40 mg tablet 40 mg PO QPM calcium carbonate-vitamin D3 [Calcium + D] 600 mg-5 mcg (200 unit) Tablet 1 tab PO DAILY aspirin [Aspir-81] 81 mg Tablet,Delayed Release (Dr/Ec) 81 mg PO QAM citalopram 20 mg tablet 20 mg PO QAM ascorbic acid (vitamin C) [Vitamin C] 500 mg Tablet 500 mg PO DAILY carboxymethylcellulose sodium [Refresh Liquigel] 1 % Drops, Liquid Gel 2 drp OPHTHALMIC (EYE) BID PRN (Reason: unknown) cholecalciferol (vitamin D3) 50 mcg (2,000 unit) capsule 50 mcg PO DAILY metoprolol tartrate 25 mg tablet 25 mg PO BID Eliquis 5 mg tablet 5 mg PO BID tizanidine 4 mg tablet 4 mg PO Q6H PRN (Reason: muscle spasticity) Qty: 20 0RF Rx Instructions: do not exceed 3 doses per 24 hrs diclofenac sodium 75 mg tablet,delayed release (DR/EC) 75 mg PO Q12H PRN (Reason: pain) Qty: 20 0RF Discharge Orders: Discharge ED (Routine); Ordered 11/02/24 Ordered By: Jessica Morales Referrals: Cipriano Allred DO [Primary Care Provider] - Patient Instructions: Lumbar Radiculopathy (ED), Opioid Safety, Pain Management Activity Restrictions/Additional Instructions: As we discussed, I would like you to follow-up with your primary care provider soon as possible for further evaluation and treatment options regarding your lower back pain. Coding Level of Care Code ED Rehabilitation Construction Specialist for Analy Valdez
[2024-11-02] MEDS: ketorolac 60 mg/2 mL INJ IM (00:56)
[2024-11-02] MEDS: orphenadrine 30 mg/mL Inj 2 mL 60 MG IM (00:56)
[2024-11-02 01:02] VITALS: RESP 22; O2SAT 99
[2024-11-02] MEDS: morphine 4 mg/mL SDV 1 mL IM (01:02)
[2024-11-02] MEDS: dexamethasone 10 mg/mL INJ IM (01:02)
[2024-11-02 01:10] VITALS: BP 133/59; PULSE 86; RESP 16; O2SAT 100
[2024-11-02 02:10] VITALS: BP 121/57; PULSE 86; RESP 16; O2SAT 100
== END 2024-11-02 02:12 | disposition home or self-care (01) ==
PROVIDERS: Emergency Provider Physician Assistant; PCP Electrodiagnostic Medicine
DX: M54.16 Radiculopathy, lumbar region (principal); Z79.82 Long term (current) use of aspirin; Z79.01 Long term (current) use of anticoagulants; F17.210 Nicotine dependence, cigarettes, uncomplicated
CPT/HCPCS: 96372; 99284; J1100; J1885; J2270; J2360

== ENCOUNTER 2024-11-02 19:15 | Emergency (ER) | payer MEDICARE, SELFPAY ==
[2024-11-02 19:35] VITALS: BP 118/68; PULSE 75; TEMP 36.4; O2SAT 98; BMI 33.3
--- NOTE | 2024-11-02 21:22 | ED_ITS ---
HPI - Abdominal Pain 2 General: Chief Complaint: Abdominal Pain Stated Complaint: right side pain Time Seen by Provider: 11/02/24 21:14 History of Present Illness: Patient was seen earlier this morning or late last night for abdominal back pain as well as seen at least once within the last month. Patient thinks her right upper quadrant of abdomen is swollen. Patient rates pain 9 out of 10. Patient did not get her pain pills that was prescribed to her today. She had a UTI approximately month ago. She does have some nausea and diarrhea. Related Data Home Medications Medication Instructions Recorded Confirmed alprazolam 0.25 mg tablet 0.25 mg PO QAM anxiety 06/28/20 10/18/24 ascorbic acid (vitamin C) 500 mg 500 mg PO DAILY 11/18/23 10/18/24 tablet (Vitamin C) aspirin 81 mg tablet,delayed 81 mg PO QAM 11/18/23 10/18/24 release atorvastatin 40 mg tablet 40 mg PO QPM 11/18/23 10/18/24 calcium 600 mg (as 1 tab PO DAILY 11/18/23 10/18/24 carbonate)-vitamin D3 5 mcg (200 unit) tablet carboxymethylcellulose sodium 1 % 2 drp ophthalmic (eye) BID PRN 11/18/23 10/18/24 eye liquid gel drops (Refresh unknown Liquigel) cholecalciferol (vitamin D3) 50 50 mcg PO DAILY 11/18/23 10/18/24 mcg (2,000 unit) capsule citalopram 20 mg tablet 20 mg PO QAM 11/18/23 10/18/24 multivitamin 1 tab PO DAILY 11/18/23 10/18/24 apixaban 5 mg tablet (Eliquis) 5 mg PO BID 09/27/24 10/18/24 metoprolol tartrate 25 mg tablet 25 mg PO BID 09/27/24 10/18/24 Previous Rx's Medication Instructions Recorded folic acid 1 mg tablet 3 mg (3 x 1 mg) PO DAILY #90 tabs 06/21/24 fluticasone propionate 50 1 spray intranasal BID #16 grams 09/25/24 mcg/actuation nasal spray,suspension (Flonase Allergy Relief) diclofenac sodium 75 mg 75 mg PO Q12H PRN pain #20 tabs 09/30/24 tablet,delayed release tizanidine 4 mg tablet 4 mg PO Q6H PRN muscle spasticity 09/30/24 #20 tabs methotrexate sodium 2.5 mg tablet 10 mg (4 x 2.5 mg) PO Q7D #20 tabs 10/04/24 hydroxychloroquine 200 mg tablet 200 mg PO BID #60 tabs 10/18/24 hydrocodone 5 mg-acetaminophen 325 1 - 2 tab PO .q4-q6 PRN pain #20 11/02/24 mg tablet tabs Allergies Allergy/AdvReac Type Severity Reaction Status Date / Time No Known Allergies Allergy Verified 11/02/24 19:40 Review of Systems 2 General: Reports: 10 or more systems reviewed and unremarkable except in HPI and below PFSH ED 2 PFSH: Medical History COVID-19 vaccine administered Seropositive rheumatoid arthritis of multiple sites Osteoporosis 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 High risk 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 use Immunization counseling Rheumatoid arthritis with rheumatoid factor Leg cramps Surgical History History of hysterectomy Family History Other Arthritis Denies family history of Rheumatoid arthritis Lupus Social History Smoking and tobacco/nicotine status: current every day tobacco/nicotine user cigarettes Physical Exam 2 Const: COMMON NORMALS: no acute distress, average body habitus, patient oriented x3, no limitations, healthy appearing, alert and well nourished HENMT: COMMON NORMALS: normocephalic, atraumatic, hearing grossly normal bilaterally, external ears normal, Normal external nose present and moist oral mucous membranes HEAD & SCALP: normocephalic and atraumatic NOSE: Normal external nose present EXTERNAL EAR: Yes external ears normal Neck/C-Spine: COMMON NORMALS: no JVD Chest: COMMONS NORMALS: normal inspection of the chest and normal palpation of entire chest wall Resp: COMMON NORMALS: normal respiratory effort, No retractions, No use of accessory muscles and clear to auscultation bilaterally AUSCULTATION: clear to auscultation bilaterally Cardio: COMMON NORMALS: no JVD, regular rate, regular rhythm, S1 normal heart sound present, S2 normal heart sound present, No gallops present (Cardio), No clicks present (Cardio), No murmurs present (Cardio) and No rub (Cardio) R ATE: regular rate RHYTHM: regular rhythm HEART SOUNDS: S1 normal heart sound present and S2 normal heart sound present GI: COMMON NORMALS: Normal to inspection, nondistended, normoactive bowel sounds present, Soft to palpation, No hepatosplenomegaly present and no masses; negative for non-tender (To palpate right upper quadrant abdomen and rib cage) PALPATION: Yes Soft to palpation and Yes No hepatosplenomegaly present Neuro: COMMON NORMALS: patient oriented x3 SENSORIUM/ORIENTATION: Yes alert Course 2 Vital Signs: Vital signs: Vital Signs Temperature 97.6 F 11/02/24 19:35 Pulse Rate 68 11/02/24 22:36 Blood Pressure 118/68 11/02/24 19:35 Pulse Oximetry 98 11/02/24 22:36 Oxygen Delivery Me thod Room Air 11/02/24 22:36 MDM - Abdominal Pain Medical Decision Making Lab work was obtained included CBC CMP urinalysis CRP lipase all benign. I reviewed the previous 2 ER visits. Patient will get her Hoagland filled from the PCR visit. We will give the patient 2 Hoagland and have her get her prescription filled in the morning. She should follow-up with her PCP for further evaluation and treatment. Medical Records I reviewed the patient's medical records. Lab Data I reviewed the patient's lab results. 11/02/24 21:58 11/02/24 21:58 Labs/Radiology: Laboratory Results WBC 9.19 10^3/uL (3.29-11.43) 11/02/24 21:58 RBC 3.51 10^6/uL (3.85-5.65) L 11/02/24 21:58 Hgb 11.10 g/dL (11.27-16.99) L 11/02/24 21:58 Hct 34.1 % (36-47) L 11/02/24 21:58 MCV 97.2 fl (85-98) 11/02/24 21:58 MCH 31.6 pg (27-33) 11/02/24 21:58 MCHC 32.6 g/dL (30-55) 11/02/24 21:58 RDW 15.3 % (12.1-15.1) H 11/02/24 21:58 Plt Count 438 10^3/cmm (157-399) H 11/02/24 21:58 MPV 9.3 fL (7.4-10.4) 11/02/24 21:58 Neut % (Auto) 70.5 % 11/02/24 21:58 Lymph % (Auto) 21.0 % 11/02/24 21:58 Page % (Auto) 7.9 % 11/02/24 21:58 Eos % (Auto) 0.0 % 11/02/24 21:58 Baso % (Auto) 0.1 % 11/02/24 21:58 Neut # (Auto) 6.47 10^3/uL (1.8-7.7) 11/02/24 21:58 Lymph # (Auto) 1.9 10^3/uL (0.8-4.8) 11/02/24 21:58 Page # (Auto) 0.7 10^3/uL (0.2-0.9) 11/02/24 21:58 Eos # (Auto) 0.0 10^3/uL (0.0-0.8) 11/02/24 21:58 Baso # (Auto) 0.0 10^3/uL (0.0-0.1) 11/02/24 21:58 Nucleated RBC % (auto) 0 % 11/02/24 21:58 Nucleated RBCs # 0.0 /100WBC 11/02/24 21:58 Sodium 139 mmol/L (136-145) 11/02/24 21:58 Potassium 4.1 mmol/L (3.5-5.1) 11/02/24 21:58 Chloride 104 mmol/L (98-107) 11/02/24 21:58 Carbon Dioxide 22 mmol/L (22-29) 11/02/24 21:58 Anion Gap 17.1 (5-19) 11/02/24 21:58 BUN 27 mg/dL (8-23) H 11/02/24 21:58 Creatinine 1.0 mg/dL (0.5-0.9) H 11/02/24 21:58 GFR Calculation 55.5 mL/min (90-130) L 11/02/24 21:58 Glucose 139 mg/dL (65-115) H 11/02/24 21:58 Calculated Osmolality 295 mOsm/kg (285-295) 11/02/24 21:58 Calcium 9.0 mg/dL (8.5-10.5) 11/02/24 21:58 Total Bilirubin 0.2 mg/dL (0.15-1.2) 11/02/24 21:58 AST 21 U/L (0-32) 11/02/24 21:58 ALT 25 U/L (0-33) 11/02/24 21:58 Alkaline Phosphatase 131 U/L (35-105) H 11/02/24 21:58 C-Reactive Protein 3.0 mg/L (0.0-4.9) 11/02/24 21:58 Total Protein 6.8 g/dL (6.6-8.7) 11/02/24 21:58 Albumin 3.8 g/dL (3.5-5.2) 11/02/24 21:58 Globulin 3.0 g/dL (1.3-4.6) 11/02/24 21:58 Lipase 28 U/L (13-60) 11/02/24 21:58 Urine Color Yellow (Yellow) 11/02/24 22:26 Urine Appearance Clear (CLEAR) 11/02/24 22:26 Urine pH 5.0 (5-7) 11/02/24 22:26 Ur Specific [place] 1.038 (1.005-1.030) H 11/02/24 22:26 Urine Protein Trace (Negative) A 11/02/24 22:26 Urine Glucose (UA) Negative (Normal) 11/02/24 22:26 Urine Ketones Trace (Negative) 11/02/24 22:26 Urine Blood Negative (Negative) 11/02/24 22:26 Urine Nitrate Negative (Negative) 11/02/24 22:26 Urine Bilirubin Negative (Negative) 11/02/24 22:26 Urine Urobilinogen 1.0 mg/dL (Negative) 11/02/24 22:26 Ur Leukocyte Esterase Negative (Negative) 11/02/24 22:26 Urine RBC 0-2 /hpf (0-2) 11/02/24 22:26 Urine WBC 6-10 /hpf (0-5) 11/02/24 22:26 Ur Squamous Epith Cells 6-10 /hpf (0-5) 11/02/24 22:26 Amorphous Sediment Not Reportable 11/02/24 22:26 Urine Bacteria None seen /hpf (NONE) 11/02/24 22:26 Hyaline Casts 2.87 /lpf 11/02/24 22:26 All radiology interpretation(s) finalized by discharge Discharge Plan Discharge Patient Disposition: Home Clinical Impression: Abdominal pain, acute, right upper quadrant Condition: Stable Prescriptions: No Action alprazolam 0.25 mg tablet 0.25 mg PO QAM hydroxychloroquine 200 mg tablet 200 mg PO BID Qty: 60 3RF folic acid 1 mg tablet 3 mg PO DAILY Qty: 90 5RF fluticasone propionate [Flonase Allergy Relief] 50 mcg/actuation spray,suspension 1 spray intranasal BID Qty: 16 0RF Rx Instructions: administer into each nostril methotrexate sodium 2.5 mg tablet 10 mg PO Q7D Qty: 20 4RF Hold Instructions: Doctor's Order Rx Instructions: on thu multivitamin Tablet 1 tab PO DAILY atorvastatin 40 mg tablet 40 mg PO QPM calcium carbonate-vitamin D3 [Calcium + D] 600 mg-5 mcg (200 unit) Tablet 1 tab PO DAILY aspirin [Aspir-81] 81 mg Tablet,Delayed Release (Dr/Ec) 81 mg PO QAM citalopram 20 mg tablet 20 mg PO QAM ascorbic acid (vitamin C) [Vitamin C] 500 mg Tablet 500 mg PO DAILY carboxymethylcellulose sodium [Refresh Liquigel] 1 % Drops, Liquid Gel 2 drp OPHTHALMIC (EYE) BID PRN (Reason: unknown) cholecalciferol (vitamin D3) 50 mcg (2,000 unit) capsule 50 mcg PO DAILY metoprolol tartrate 25 mg tablet 25 mg PO BID Eliquis 5 mg tablet 5 mg PO BID tizanidine 4 mg tablet 4 mg PO Q6H PRN (Reason: muscle spasticity) Qty: 20 0RF Rx Instructions: do not exceed 3 doses per 24 hrs diclofenac sodium 75 mg tablet,delayed release (DR/EC) 75 mg PO Q12H PRN (Reason: pain) Qty: 20 0RF hydrocodone-acetaminophen 5-325 mg tablet 1 - 2 tab PO .q4-q6 PRN (Reason: pain) Qty: 20 0RF Discharge Orders: Discharge ED (Routine); Ordered 11/02/24 Ordered By: [place] Referrals: Cipriano Allred DO [Primary Care Provider] - 1 week Patient Instructions: Abdominal Pain (ED), Opioid Safety, Pain Management Activity Restrictions/Additional Instructions: Your evaluation ER that included lab work, urinalysis and physical exam was unremarkable except for right upper quadrant abdominal pain. This can be multifactorial. You have been given please go to the pharmacy and get your prescription of hydrocodone filled and take as follow-up with your family practice doctor for further evaluation treatment. Coding Level of Care Code ED Loom Fixer Apprentice for Analy Valdez
[2024-11-02 22:04] LABS: Basophils % 0.1 %; Hematocrit 34.1 % (36-47); Lymphocytes # 1.9 10^3/uL (0.8-4.8); Mean Corpuscular HGB Conc 32.6 g/dL (30-55); Mean Corpuscular Hemoglobin 31.6 pg (27-33); Mean Corpuscular Volume 97.2 fl (85-98); Mean Platelet Volume 9.3 fL (7.4-10.4); Monocytes # 0.7 10^3/uL (0.2-0.9); Monocytes % 7.9 %; Neutrophils # 6.47 10^3/uL (1.8-7.7); Neutrophils % 70.5 %; Nucleated Red Blood Cells % 0 %; Platelet Count 438 10^3/cmm (157-399); Red Blood Count 3.51 10^6/uL (3.85-5.65); Red Cell Distribution Width 15.3 % (12.1-15.1); White Blood Count 9.19 10^3/uL (3.29-11.43)
[2024-11-02 22:22] LABS: Alanine Aminotransferase 25 U/L (0-33); Albumin Level 3.8 g/dL (3.5-5.2); Alkaline Phosphatase 131 U/L (35-105); Anion Gap 17.1 (5-19); Aspartate Amino Transferase 21 U/L (0-32); Blood Urea Nitrogen 27 mg/dL (8-23); Carbon Dioxide 22 mmol/L (22-29); Chloride 104 mmol/L (98-107); Creatinine Clr Calc Pharmacy 61.5784; Glomerular Filtration Rate 55.5 mL/min (90-130); Glucose 139 mg/dL (65-115); Lipase 28 U/L (13-60); Osmolality Calculated 295 mOsm/kg (285-295); Potassium 4.1 mmol/L (3.5-5.1); Sodium 139 mmol/L (136-145); Total Bilirubin 0.2 mg/dL (0.15-1.2); Total Protein 6.8 g/dL (6.6-8.7)
[2024-11-02 22:32] LABS: Bilirubin Urine Negative (Negative); Blood Urine Negative (Negative); Glucose Urine UA Negative (Normal); Ketones Urine Trace (Negative); Leukocyte Esterase Urine Negative (Negative); Nitrate Urine Negative (Negative); Protein Urine Trace (Negative); Urine Appearance Clear (CLEAR); Urine Color Yellow (Yellow)
[2024-11-02] MEDS: ketorolac 30 mg/mL INJ IVP (22:34)
[2024-11-02 22:36] VITALS: PULSE 68; O2SAT 98
[2024-11-02 22:37] LABS: Add Urine Microscopic? YES; Bacteria Urine None Seen /hpf; Hyaline Casts Urine 2.87 /lpf; RBC Urine 0-2 /hpf (0-2)
[2024-11-02 22:47] LABS: Specific Gravity, Urine 1.038 (1.005-1.030); UA Slide Review UA Slide Review Perf
[2024-11-02] MEDS: HYDROcodone-acetaminophen 5-325 mg Tablet 2 TAB PO (23:46)
[2024-11-03 00:03] VITALS: BP 120/78; PULSE 77; O2SAT 94
[2024-11-03 00:04] VITALS: BP 120/78; PULSE 77; O2SAT 94
== END 2024-11-02 23:39 | disposition home or self-care (01) ==
PROVIDERS: Emergency Provider Emergency Medicine; PCP Electrodiagnostic Medicine
DX: R10.11 Right upper quadrant pain (principal); Z79.01 Long term (current) use of anticoagulants; F17.210 Nicotine dependence, cigarettes, uncomplicated
CPT/HCPCS: 80053; 81001; 83690; 85025; 86140; 96374; 99284; J1885

== ENCOUNTER 2024-11-24 11:22 | Outpatient (CLI) | payer MEDICARE, OTHER, SELFPAY ==
--- NOTE | 2024-11-24 11:30 | MR_ITS ---
WS: [id number] MRI LUMBAR SPINE NONCONTRAST TECHNIQUE: Sagittal T1, T2 and STIR imaging. Axial T1 and T2 imaging. CLINICAL INFORMATION: INTERVERTEBRAL DISC DISORDER COMPARISON: CT abdomen pelvis 09/27/2024 FINDINGS: Counting performed from the craniocervical junction. For the purposes of this dictation 7 cervical 13 thoracic and 5 lumbar type nonrib-bearing vertebral bodies L1-L5. Mild compression with edema involving the superior endplates L1, L2, and L3. No retropulsion. Recomme nd correlation for low back pain. Compression at L1, L2, and L3 appears new since the prior CT 2023. Mild compression superior endplate L4 appears similar to 09/27/2024 with trace edema and slight retropulsion of the posterior superior cortex. L1-L2: No significant disc bulging. Mild LEFT and no significant RIGHT foraminal narrowing. Mild face t arthropathy. L2-L3: Minimal disc bulging. Mild facet arthropathy. Mild LEFT foraminal narrowing. Spinal canal is p atent. L3-L4: Slight anterolisthesis. Mild disc bulging with a central disc protrusion. Moderate central can al stenosis. Impingement on the RIGHT greater than LEFT subarticular recess. Mild RIGHT and no signif icant LEFT foraminal narrowing. Moderate arthropathy. L4-L5: Mild annular bulging. Mild central canal stenosis. Shallow protrusion with impingement of the traversing L5 nerve roots bilaterally LEFT greater than RIGHT. Mild LEFT foraminal narrowing. L5-S1: Mild annular bulging. Moderate facet arthropathy. Mild LEFT and no significant RIGHT foraminal narrowing. Moderate facet arthropathy. Visualized pelvic bony structures: Normal. Paravertebral soft tissues: Normal. MR/MR lumbar spine wo con* [id number] IMPRESSION:Counting performed from the craniocervical junction. For the purpose s of this dictation 7 cervical 13 thoracic and 5 lumbar type nonrib-bearing luis carlos tebral bodies L1-L5. 1. Mild acute appearing compression of the superior end plates at L1 L2 and L3 with edema. This is new since the prior CT abdomen pelvis 09/27/2024. No retro pulsion. Minimal loss of vertebral body height. 2. Mild compression of superior plate L4 with trace edema similar in appearanc e to 09/27/2024. 3. Moderate central canal stenosis L3-4 due to disc bulge and facet arthropath y with ligamentum flavum hypertrophy. Minimal retropulsion posterior superior c ortex L4. 4. Disc bulge L4-5 with mild central canal stenosis and impingement of tello ing L5 nerve roots.
== END 2024-11-24 11:23 | disposition home or self-care (01) ==
LOC: RAD 11:24
PROVIDERS: PCP Electrodiagnostic Medicine; Visit Provider Electrodiagnostic Medicine
DX: M51.06 Intervertebral disc disorders with myelopathy, lumbar region (principal); M48.061 Spinal stenosis, lumbar region without neurogenic claudication; M51.369 Other intervertebral disc degeneration, lumbar region without mention of lumbar back pain or lower extremity pain; M47.896 Other spondylosis, lumbar region; R93.89 Abnormal findings on diagnostic imaging of other specified body structures
CPT/HCPCS: 72148

== ENCOUNTER 2025-01-06 13:17 | Outpatient (CLI) | payer MEDICARE, OTHER, SELFPAY ==
--- NOTE | 2025-01-06 13:19 | MM_ITS ---
WS: [id number] BILATERAL 3D TOMOSYNTHESIS DIGITAL SCREENING MAMMOGRAM WITH CAD CLINICAL INFORMATION: SCREENING HISTORY: Screening mammogram. No current complaints. COMPARISON: 2020 TECHNIQUE: Bilateral CC and MLO views. FINDINGS: Fatty-replaced breasts bilaterally. No suspicious focal mass, asymmetry, calcifications, or architectural distortion. No evidence of malignancy. MM/MM scr BI tomosynthesis [id number] IMPRESSION: DENSITY: The breasts are almost entirely fatty. BI-RADS: 1 - Negative. FOLLOW UP: 1 Year Follow-up Recommend return to annual screening mammography.
== END 2025-01-06 13:18 | disposition home or self-care (01) ==
PROVIDERS: PCP Electrodiagnostic Medicine; Visit Provider Electrodiagnostic Medicine
DX: Z78.0 Asymptomatic menopausal state (principal); R92.313 Mammographic fatty tissue density, bilateral breasts
CPT/HCPCS: 77063; 77067

== ENCOUNTER → 2025-01-10 14:54 | Outpatient (BNVA) | payer MEDICARE, OTHER, SELFPAY | PROVIDERS: PCP Electrodiagnostic Medicine; Visit Provider Orthopaedic Surgery | DX: S32.010A Wedge compression fracture of first lumbar vertebra, initial encounter for closed fracture (principal); S32.020A Wedge compression fracture of second lumbar vertebra, initial encounter for closed fracture; S32.030A Wedge compression fracture of third lumbar vertebra, initial encounter for closed fracture; S32.040A Wedge compression fracture of fourth lumbar vertebra, initial encounter for closed fracture; X58.XXXA Exposure to other specified factors, initial encounter | CPT/HCPCS: 72110; 99203 ==

== ENCOUNTER 2025-02-07 08:02 | Outpatient (CLI) | payer MEDICARE, OTHER, SELFPAY ==
--- NOTE | 2025-02-07 08:07 | MR_ITS ---
WS: [id number] MRI LUMBAR SPINE NONCONTRAST HISTORY: INTERVERTEBRAL DISC DISORDER OF LSPINE REGION, low back pain for several months. COMPARISON: Prior lumbar spine MRI 11/24/2024, radiograph 01/10/2025 TECHNIQUE: Sagittal and axial multisequence imaging is submitted. This study is compromised by motion. Patient had a difficult time remaining still. Same numbering pattern will be used as on the prior MRI of 11/24/2024. 5 nonrib- bearing lumbar-type vertebral bodies. Seen on the localizer imaging is new marrow edema in the T10 and T11 that did not appear to be present on 11/24/2024. Slight increase in the lumbar lordosis. Marrow edema in the superior endplate of T10 and probably T11. Marrow edema within the lumbar vertebral bodies as noted on 11/24/2024 is not as obvious but this may be due to motion. Compression fractures and involving the endplates of L1, L2 and L3. L4 compression fracture similar to 09/27/2024. No residual edema edema appreciated. Retropulsion of the posterior superior endplate of L4 by 4.5 mm. Disc spaces are narrowed and desiccated. Conus terminates normally at L1-2 disc level. L1-L2: Facet arthritis. Minimal bilateral foraminal stenosis is unchanged. Disc asymmetrically extends into the LEFT foramen resulting in stenosis. L2-L3: Minimal disc bulging asymmetric to the LEFT and facet joint arthropathy. Mild foraminal stenosis on the LEFT. L3-L4: Diffuse annular disc bulging with a central protrusion. Moderate central stenosis. Mild subarticular recess encroachment, RIGHT greater than LEFT. Disc contacts the RIGHT traversing L4 nerve root. Mild bilateral foraminal stenosis. L4-L5: Diffuse annular disc bulging with facet joint arthritis. Mild central and bilateral foraminal stenosis. L5-S1: Mild annular disc bulging and osteophytic ridging. No significant stenosis. Facet arthritis. MR/MR lumbar spine wo con* [id number] IMPRESSION: 1. Study is compromised by motion artifact. 2. Marrow edema is decreased within the L1, L2 and L3 endplates without progre ssion. 3. Chronic stable L4 compression fracture with posterior retropulsion of the s uperior endplate by 4.5 mm. 4. New osteoporotic fractures now present at T10, T11 and T12 without retropul annabel. 5. Moderate central stenosis at L3-4, stable. 6. Multilevel areas of mild foraminal stenosis as above. No high-grade foramin al stenosis.
== END 2025-02-07 08:03 | disposition home or self-care (01) ==
PROVIDERS: PCP Electrodiagnostic Medicine; Visit Provider Orthopaedic Surgery
DX: M48.061 Spinal stenosis, lumbar region without neurogenic claudication (principal); R93.7 Abnormal findings on diagnostic imaging of other parts of musculoskeletal system; M51.369 Other intervertebral disc degeneration, lumbar region without mention of lumbar back pain or lower extremity pain; M47.896 Other spondylosis, lumbar region; M51.26 Other intervertebral disc displacement, lumbar region; M51.379 Other intervertebral disc degeneration, lumbosacral region without mention of lumbar back pain or lower extremity pain; M25.78 Osteophyte, vertebrae; M47.897 Other spondylosis, lumbosacral region; S22.079A Unspecified fracture of T9-T10 vertebra, initial encounter for closed fracture; S22.089A Unspecified fracture of T11-T12 vertebra, initial encounter for closed fracture; X58.XXXA Exposure to other specified factors, initial encounter
CPT/HCPCS: 36415; 72072; 72148; 80053; 81001; 85025; 87077; 87086; 87186; 99214

== ENCOUNTER → 2025-02-09 11:32 | Outpatient (BNVA) | payer MEDICARE, OTHER, SELFPAY | PROVIDERS: PCP Electrodiagnostic Medicine; Referring Provider Internal Medicine Rheumatology; Visit Provider Internal Medicine Rheumatology | DX: M05.79 Rheumatoid arthritis with rheumatoid factor of multiple sites without organ or systems involvement (principal); M81.0 Age-related osteoporosis without current pathological fracture; Z79.899 Other long term (current) drug therapy; Z71.89 Other specified counseling | CPT/HCPCS: 99214 ==

== ENCOUNTER 2025-02-13 07:16 | Day surgery (SDC) | payer MEDICARE, OTHER, SELFPAY ==
[2025-02-13] VITALS (13 sets, daily range): BP systolic 96–144; BP diastolic 54–77; PULSE 80–104; RESP 14–19; TEMP 36.1–36.4; O2SAT 90–98; BMI 35.2
--- NOTE | 2025-02-13 07:52 | ANES.PREANE2 ---
Pre-Anesthetic Assessment Height/Weight: Height 1.65 m Preop Diagnosis: L1-L3 wedge osteoporotic compression fractures Operation Date: 02/13/25 08:55 Proposed Procedures p Kyphoplasty(Not Applicable) - Jaswinder Cassidy, Social No alcohol and No tobacco (quit smoking 1.5 years ago) Exam alert, oriented x 3, clear to auscultation bilaterally and regular rate & rhythm Airway Submandibular: within normal limits Cervical ROM: within normal limits Mallampati: Class I Comments: Comments: Multiple missing teeth CV/HEM Hypertension Urinary Tract Infection Metabolic Diabetes Mellitus and Morbid Obesity [facility] Osteoarthritis/DJD Anesthetic Plan ASA status: 3 Anesthesia: General Medications/Allergies Home Medications ?Medication ?Instructions ?Recorded ?Confirmed ?Last Taken ?Type alprazolam 0.25 mg tablet 0.25 mg PO QAM anxiety 06/28/20 02/10/25 02/12/25 History ascorbic acid (vitamin C) 500 mg 500 mg PO DAILY 11/18/23 02/10/25 02/12/25 History tablet (Vitamin C) atorvastatin 40 mg tablet 40 mg PO QPM 11/18/23 02/10/25 02/12/25 History calcium 600 mg (as 1 tab PO DAILY 11/18/23 02/10/25 02/10/25 History carbonate)-vitamin D3 5 mcg (200 unit) tablet cholecalciferol (vitamin D3) 50 50 mcg PO DAILY 11/18/23 02/10/25 02/10/25 History mcg (2,000 unit) capsule citalopram 20 mg tablet 20 mg PO QAM 11/18/23 02/10/25 02/12/25 History multivitamin 1 tab PO DAILY 11/18/23 02/10/25 02/10/25 History fluticasone propionate 50 1 spray intranasal BID #16 grams 09/25/24 02/10/25 02/10/25 Rx mcg/actuation nasal spray,suspension (Flonase Allergy Relief) metoprolol tartrate 25 mg tablet 25 mg PO BID 09/27/24 02/10/25 02/12/25 History folic acid 1 mg tablet 3 mg (3 x 1 mg) PO DAILY #90 tabs 11/24/24 02/10/25 02/10/25 Rx hydrocodone 5 mg-acetaminophen 325 1 tab PO Q12H PRN pain 10 days #20 02/02/25 02/10/25 02/13/25 Rx mg tablet tabs nitrofurantoin macrocrystal 100 mg 100 mg PO Q12H 10 days #20 caps 02/08/25 02/10/25 02/12/25 Rx capsule hydroxychloroquine 200 mg tablet 200 mg PO BID #180 tabs 02/09/25 02/10/25 02/12/25 Rx prednisone 5 mg tablet See Rx Instructions PO .COMPLEX 02/09/25 02/10/25 Unknown Rx PRN joint pain flare #30 tabs furosemide 20 mg tablet 20 mg PO .AM 02/13/25 02/13/25 02/12/25 History Allergies Allergy/AdvReac Type Severity Reaction Status Date / Time No Known Allergies Allergy Verified 02/10/25 09:45 PFS Anesthesia Medical History COVID-19 vaccine administered Seropositive rheumatoid arthritis of multiple sites Osteoporosis 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
[2025-02-13] MEDS: sodium chloride 0.9% 1,000 ML 30 ML IV (08:02)
[2025-02-13] MEDS: famotidine 20 mg/2 mL INJ IVP (08:02)
--- NOTE | 2025-02-13 08:18 | W.PM.OPSUD ---
Surgery/Procedure H&P Update DATE OF PROCEDURE: February 13, 2025 DATE H&P PERFORMED: 02/07/25 H&P UPDATE INFORMATION: I have reviewed H&P completed within last 30 days, I have examined patient prior to procedure and No changes to prior documentation PREOP DIAGNOSIS: L1-L3 wedge osteoporotic compression fractures PLANNED PROCEDURE: Operation Date: 02/13/25 08:55 Proposed Procedures p Kyphoplasty(Not Applicable) - Jaswinder Cassidy DO
[2025-02-13] MEDS: ceFAZolin 2,000 mg SDV 2000 MG IVP (08:45)
[2025-02-13] MEDS: lidocaine-epi 1% 20 mL INJ INJECTION (08:50)
--- NOTE | 2025-02-13 09:10 | SUR.OPER ---
OMNIPAQUE 10ML INJECTED LOT [id number]. 09/27/25.
[2025-02-13] MEDS: fentaNYL 50 mcg/mL INJ 2mL IVP (09:30)
--- NOTE | 2025-02-13 09:40 | P.OP_ITS ---
Operative Report Date of procedure: February 13, 2025 Pre-op diagnosis: L1, L2, and L3 wedge osteoporotic traumatic compression fractures Post-op diagnosis: same Procedure done: 1. L1 kyphoplasty 2. L2 kyphoplasty 3. L3 kyphoplasty Surgeon: Jaswinder Cassidy DO Estimated blood loss (mL): 20 Procedure: 1. L1 kyphoplasty 2. L2 kyphoplasty 3. L3 kyphoplasty Patient is brought the op suite after going anesthesia was placed in the prone position. All areas appear well-padded. Patient was prepped draped in also fashion. The biplanar fluoroscopy was brought in the attention was then brought to the L3 level first. Skin incision was made outside the pedicle at L3. The awl was then inserted followed by the drill followed by the balloon. Next the attention was brought to the L2 level. A skin incision made outside the right pedicle awl was inserted. Followed by the drill. Followed by the balloon. Next attention was brought to the L1 level. This was made in skin incisions made over the left pedicle awl was inserted followed by the drill followed by the balloon. Next and was brought to putting cement into the levels. First 1 was placed using biplanar fluoroscopy to ensure that cement were in good position. The cement did not have any leakage or stay within the body. Attention was then brought to L2 cement was injected again no leakage good position throughout the body and then the process was repeated at L3 cement had good position. Final x- ray showed cement in L1-L3. All is in good position. Wounds were irrigated and closed with nylon suture. Sterile dressings were applied and patient was transferred to PACU in stable addition.
[2025-02-13] MEDS: HYDROcodone-acetaminophen 5-325 mg Tablet 1 TAB PO (10:50)
--- NOTE | 2025-02-13 10:51 | SUR.PHASEII ---
RT brought IS and educated patient on using device.
--- NOTE | 2025-02-13 11:02 | SUR.PHASEII ---
Addendum entered by Sarah Nelson RN 02/13/25 11:04: Patient states she is ready to go home with pain at current rating. Original Note: Patient oxygen ranges from 88-93% on room air. Reported to Dr. Seymour and he said she is ok to be discharged. She is awake and alert. Patient educated on doing IS at home and deep breathing and coughing as well. Patient verbalized understanding of education.
--- NOTE | 2025-02-13 13:16 | ANE.PACU2 ---
Inpatient post-anesthesia follow up: Vital signs: Temperature 97.0 F Pulse Rate 87 Respiratory Rate 16 Blood Pressure 140/56 Pulse Oximetry 92 Oxygen Delivery Me thod Room Air Oxygen Flow Rate 2 Fraction of Inspir ed Oxygen Hydration adequate: Yes Nausea and vomiting: No Pain level: Well controlled Mental status: Baseline
== END 2025-02-13 11:20 | disposition home or self-care (01) ==
PROVIDERS: PCP Electrodiagnostic Medicine; Visit Provider Orthopaedic Surgery
PROC: (CPT 22514; principal; 2025-02-13 08:35)
DX: M80.08XA Age-related osteoporosis with current pathological fracture, vertebra(e), initial encounter for fracture (principal); I10 Essential (primary) hypertension; E11.9 Type 2 diabetes mellitus without complications; E66.01 Morbid (severe) obesity due to excess calories; Z68.35 Body mass index [BMI] 35.0-35.9, adult; M19.90 Unspecified osteoarthritis, unspecified site; M05.79 Rheumatoid arthritis with rheumatoid factor of multiple sites without organ or systems involvement; Z79.01 Long term (current) use of anticoagulants; Z87.891 Personal history of nicotine dependence
CPT/HCPCS: 22514; 22515 ×2; 76000; A4216; J0131; J0690; J1100; J1200; J2371; J2405; J2704; J3010; J3490; J7030; J9999

== ENCOUNTER 2025-02-17 09:14 | Inpatient (IN) | payer MEDICARE, OTHER, SELFPAY ==
[2025-02-17] VITALS (27 sets, daily range): BP systolic 112–150; BP diastolic 64–107; PULSE 71–179; RESP 14–39; TEMP 36.7–36.9; O2SAT 83–100
--- NOTE | 2025-02-17 09:16 | XR_ITS ---
WS: [id number] Portable AP upright chest, 02/17/2025 Clinical Data: chest pain Comparison: 2 view chest, 02/07/2025 Findings: No nodules, masses or effusions are seen. The heart is normal. The pulmonary vascularity is not increased. No pneumonia or pneumothorax is seen. There is minimal patchy atelectasis over the surface of the left diaphragm. The aortic arch and descending thoracic aorta show mild tortuosity. Monitor leads are on the chest wall. XR/XR chest 1V portable [id number] Impression: Atherosclerosis.
--- NOTE | 2025-02-17 09:16 | ECG_ITS ---
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 Measurements Intervals [place] Rate: 98 P: 48 AK: 131 QRS: -23 QRSD: 86 T: 29 QT: 337 QTc: 431 Interpretive Statements SINUS RHYTHM BORDERLINE LEFT AXIS DEVIATION [QRS AXIS < -20] No previous ECG available for comparison Electronically Signed On 02-18-2025 13:24:36 CDT by Acacia Navarrete M.D. [id number]
--- NOTE | 2025-02-17 09:29 | W.ED.CHESTPA ---
HPI - Chest Pain General: Chief Complaint: Chest Pain Stated Complaint: chest pain Time Seen by Provider: 02/17/25 09:16 Source: patient Mode of arrival: ambulatory Limitations: no limitations History of Present Illness: Patient is a 64-year-old female presents to ED today with a complaint of pain near her left breast that started early this morning as well as dyspnea-worse with exertion. Patient states she is 4 days post surgery by Dr. Cassidy for multiple lumbar kyphoplasties. She states she has been taking hydrocodone at home for her discomfort. Patient states she was taken off of her Eliquis prior to the surgery and has not been restarted on this (was on this previously for PE over a year ago). Oxygen during my examination anywhere from 83-88% on RA. She normally does not require oxygen. Patient states she quit smoking 2 years ago. She does have a history of swelling to her legs and takes furosemide for this. She has not noticed any worsening swelling or recent weight gain. Does feel like her abdomen is bloated-states this has been present for many months and told it was due to water MD complaint: chest pain Onset (ago): hour(s) Timing of current episode: constant Prior episodes: No Onset: awoke with symptoms Pain location: left chest Pain radiation: none Severity: moderate Relieving factors: nothing Exacerbating factors: exertion (makes SOB worse) and other Context: recent surgery Associated symptoms: Reports dyspnea; Deny abdominal pain, fever(s), nausea, palpitations, syncope or vomiting Treatment prior to arrival: none Risk Factors: Coronary artery disease risk factors: smoking history, hyperlipidemia and hypertension Thoracic aortic dissection risk factors: none Pulmonary embolism risk factors: history of pulmonary embolism, recent surgery and morbid obesity Related Data Home Medications ?Medication ?Instructions ?Recorded ?Confirmed alprazolam 0.25 mg tablet 0.25 mg PO QAM anxiety 06/28/20 02/17/25 ascorbic acid (vitamin C) 500 mg 500 mg PO DAILY 11/18/23 02/17/25 tablet (Vitamin C) atorvastatin 40 mg tablet 40 mg PO QPM 11/18/23 02/17/25 calcium 600 mg (as 1 tab PO DAILY 11/18/23 02/17/25 carbonate)-vitamin D3 5 mcg (200 unit) tablet cholecalciferol (vitamin D3) 50 50 mcg PO DAILY 11/18/23 02/17/25 mcg (2,000 unit) capsule citalopram 20 mg tablet 20 mg PO QAM 11/18/23 02/17/25 multivitamin 1 tab PO DAILY 11/18/23 02/17/25 metoprolol tartrate 25 mg tablet 25 mg PO BID 09/27/24 02/17/25 furosemide 20 mg tablet 20 mg PO .AM 02/13/25 02/17/25 prednisone 10 mg tablet See Rx Instructions .Route .COMPLEX 02/17/25 02/17/25 Previous Rx's ?Medication ?Instructions ?Recorded fluticasone propionate 50 1 spray intranasal BID #16 grams 09/25/24 mcg/actuation nasal spray,suspension (Flonase Allergy Relief) folic acid 1 mg tablet 3 mg (3 x 1 mg) PO DAILY #90 tabs 11/24/24 nitrofurantoin macrocrystal 100 mg 100 mg PO Q12H 10 days #20 caps 02/08/25 capsule hydroxychloroquine 200 mg tablet 200 mg PO BID #180 tabs 02/09/25 prednisone 5 mg tablet See Rx Instructions PO .COMPLEX 02/09/25 PRN joint pain flare #30 tabs hydrocodone 5 mg-acetaminophen 325 1 - 2 tab PO .Q4-6H #40 tabs 02/13/25 mg tablet Allergies Allergy/AdvReac Type Severity Reaction Status Date / Time No Known Allergies Allergy Verified 02/10/25 09:45 Review of Systems Const: Denies: fever(s), chills, body aches, fatigue or malaise Eyes: Denies: change in vision or blurry vision Card: Reports: chest pain and edema (chronic); Denies: palpitations, irregular heart rhythm, swelling of feet/ankles, lightheadedness, syncope, pre-syncope, dyspnea on exertion, orthopnea, leg pain with exertion or acrocyanosis Resp: Reports: dyspnea; Denies: productive cough or pain on inspiration GI: Denies: abdominal pain, nausea, vomiting, heartburn or diarrhea : Denies: flank pain, dysuria or hematuria Musc: Reports: back pain (recent kyphoplasty surgery) and extremity swelling (chronic LE swelling); Denies: neck pain, extremity pain, joint pain, joint swelling or joint redness Skin/Breast: Denies: rash Neuro: Denies: headache(s), numbness in extremities, weakness in extremities or sensory changes PFSH ED PFSH: Medical History COVID-19 vaccine administered Seropositive rheumatoid arthritis of multiple sites Osteoporosis 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 High risk medication use Immunization counseling Rheumatoid arthritis with rheumatoid factor Leg cramps Surgical History History of hysterectomy Family History Other Arthritis Denies family history of Rheumatoid arthritis Lupus Social History Smoking and tobacco/nicotine status: former use of tobacco/nicotine Physical Exam Const: COMMON NORMALS: no acute distress, average body habitus, patient oriented x3, no limitations, healthy appearing, alert and well nourished GENERAL APPEARANCE: cooperative NUTRITIONAL APPEARANCE: obese Neck/C-Spine: COMMON NORMALS: full ROM and no JVD GENERAL: Yes normal visual inspection CERVICAL SPINE: No Cervical spine tenderness and No Paracervical muscle tenderness Chest: OTHER: small area of ecchymosis L lateral chest wall; reproducible pain Resp: COMMON NORMALS: clear to auscultation bilaterally EFFORT & INSPECTION: Yes able to speak in complete sentences and Yes respiratory distress (hypoxic on room air) AUSCULTATION: clear to auscultation bilaterally Cardio: COMMON NORMALS: no JVD, regular rate and regular rhythm RATE: regular rate RHYTHM: regular rhythm GI: COMMON NORMALS: Normal to inspection, nondistended, normoactive bowel sounds present and Soft to palpation INSPECTION: Yes normal to inspection PALPATION: Yes Soft to palpation Back/Pelvis: LUMBAR SPINE/LOWER BACK: Yes lumbar spinal tenderness OTHER: surgical incision sites/sutures appear clean/intact Extremity: NARRATIVE EXTREMITY EXAM: chronic LE edema-at baseline per patient GENERAL: Yes normal exam except as noted Neuro: COMMON NORMALS: patient oriented x3, moves all extremities, no focal motor deficits and no sensory deficits noted SENSORIUM/ORIENTATION: Yes alert Skin: COMMON NORMALS: no rashes or lesions noted GENERAL SKIN EXAM: no rashes or lesions noted Course Vital Signs: Vital signs: Vital Signs Temperature 98.0 F 02/17/25 09:43 Pulse Rate 99 02/17/25 12:59 Respiratory Rate 20 H 02/17/25 09:21 Blood Pressure 128/107 02/17/25 12:59 Pulse Oximetry 94 02/17/25 12:59 Oxygen Delivery Me thod Nasal Cannula 02/17/25 12:59 Oxygen Flow Rate 3 02/17/25 12:59 MDM - Chest Pain Medical Decision Making Patient arrived tachycardic and hypoxic. She normally does not require oxygen. She has 4 days post surgery (lumbar kyphoplasty by Dr. Cassidy). She was taken off of her Eliquis prior to surgery. Blood work obtained showing a white count of 16.8. No obvious source of infection at this time. This could be reactive following surgery. UA is pending. Her surgical incision site appears clean. Baseline troponin of 13 with a delta of 0.92. EKGs are nonischemic. She is having pain to the left side of her breast. There was a small area of ecchymosis noted here. Pain is reproducible. She does not remember injuring the area. Her CXR is unremarkable. D-dimer was obtained and significantly elevated at 8.19. CTA imaging obtained showing a segmental nonocclusive right lower lobe pulmonary emboli. She does have a new lingular consolidation that radiologist thought could be rounded atelectasis but recommend follow-up in 3 months. Patient is consistently requiring 3 L of oxygen. There was no evidence of right heart strain on her CTA. I did speak to Dr. Hernandez who was agreeable to admission. She was started on Lovenox. He is requesting a dose of Zosyn. Will obtain echo. Dr. Ramsey aware of patient and will place admit orders. Medical Records I reviewed the patient's medical records. Lab Data I reviewed the patient's lab results. 02/17/25 09:37 02/17/25 09:37 Radiology Impressions Chest X-Ray 02/17/25 09:16 Impression: Atherosclerosis. Chest CTA 02/17/25 10:07 IMPRESSION: 1. Segmental nonocclusive RIGHT lower lobe pulmonary emboli. 2. New area of consolidation in the lingula. Configuration suspect this is probably rounded atelectasis. As this is an area of dense consolidation recommend follow-up chest CT in 3 months. There are additional areas of subsegmental atelectasis at the LEFT lung base and in the RIGHT middle lobe. 3. Enlarged RIGHT hilar lymph node 1.8 cm was also enlarged on this study of 11/27/2023. No increase in size. 4. Small pericardial effusion. Laboratory Results WBC 16.81 10^3/uL (3.29-11.43) H 02/17/25 09:37 RBC 4.13 10^6/uL (3.85-5.65) 02/17/25 09:37 Hgb 12.10 g/dL (11.27-16.99) 02/17/25 09:37 Hct 38.3 % (36-47) 02/17/25 09:37 MCV 92.7 fl (85-98) 02/17/25 09:37 MCH 29.3 pg (27-33) 02/17/25 09:37 MCHC 31.6 g/dL (30-55) 02/17/25 09:37 RDW 13.5 % (12.1-15.1) 02/17/25 09:37 Plt Count 259 10^3/cmm (157-399) 02/17/25 09:37 MPV 9.9 fL (7.4-10.4) 02/17/25 09:37 Neut % (Auto) 74.5 % 02/17/25 09:37 Lymph % (Auto) 12.5 % 02/17/25 09:37 [place]uming % (Auto) 11.5 % 02/17/25 09:37 Eos % (Auto) 0.8 % 02/17/25 09:37 Baso % (Auto) 0.4 % 02/17/25 09:37 Neut # (Auto) 12.52 10^3/uL (1.8-7.7) H 02/17/25 09:37 Lymph # (Auto) 2.1 10^3/uL (0.8-4.8) 02/17/25 09:37 [place]uming # (Auto) 1.9 10^3/uL (0.2-0.9) H 02/17/25 09:37 Eos # (Auto) 0.1 10^3/uL (0.0-0.8) 02/17/25 09:37 Baso # (Auto) 0.1 10^3/uL (0.0-0.1) 02/17/25 09:37 Nucleated RBC % (auto) 0 % 02/17/25 09:37 Nucleated RBCs # 0.0 /100WBC 02/17/25 09:37 D-Dimer 8.19 ug/mLFEU (0-0.59) H 02/17/25 09:37 Sodium 142 mmol/L (136-145) 02/17/25 09:37 Potassium 4.5 mmol/L (3.5-5.1) 02/17/25 09:37 Chloride 103 mmol/L (98-107) 02/17/25 09:37 Carbon Dioxide 25 mmol/L (22-29) 02/17/25 09:37 Anion Gap 18.5 (5-19) 02/17/25 09:37 BUN 16 mg/dL (8-23) 02/17/25 09:37 Creatinine 0.8 mg/dL (0.5-0.9) 02/17/25 09:37 GFR Calculation 71.8 mL/min (90-130) L 02/17/25 09:37 Glucose 100 mg/dL (65-115) 02/17/25 09:37 Calculated Osmolality 295 mOsm/kg (285-295) 02/17/25 09:37 Calcium 9.2 mg/dL (8.5-10.5) 02/17/25 09:37 Total Bilirubin 0.4 mg/dL (0.15-1.2) 02/17/25 09:37 AST 14 U/L (0-32) 02/17/25 09:37 ALT 12 U/L (0-33) 02/17/25 09:37 Alkaline Phosphatase 118 U/L (35-105) H 02/17/25 09:37 Troponin T Baseline 13 ng/L (0-10) H 02/17/25 09:37 Troponin T 120 Minute 13.92 ng/L (0-10) H 02/17/25 11:42 Delta Troponin T 0.92 ABS# (0-10) 02/17/25 11:42 NT-Pro-B Natriuret Pep 141 pg/mL (0-125) H 02/17/25 09:37 Total Protein 7.0 g/dL (6.6-8.7) 02/17/25 09:37 Albumin 3.9 g/dL (3.5-5.2) 02/17/25 09:37 Globulin 3.1 g/dL (1.3-4.6) 02/17/25 09:37 All radiology interpretation(s) finalized by discharge Discharge Plan Discharge Condition: Stable Prescriptions: No Action alprazolam 0.25 mg tablet 0.25 mg PO QAM prednisone 5 mg tablet See Rx Instructions PO .COMPLEX PRN (Reason: joint pain flare) Qty: 30 1RF Rx Instructions: take 1-2 tabs daily for 3-7 days prn joint pain flare orally PRN; hydroxychloroquine 200 mg tablet 200 mg PO BID Qty: 180 1RF fluticasone propionate [Flonase Allergy Relief] 50 mcg/actuation spray,suspension 1 spray intranasal BID Qty: 16 0RF Rx Instructions: administer into each nostril folic acid 1 mg tablet 3 mg PO DAILY Qty: 90 5RF nitrofurantoin macrocrystal 100 mg capsule 100 mg PO Q12H 10 Days Qty: 20 0RF Rx Instructions: must administer with a meal/food furosemide 20 mg tablet 20 mg PO .AM hydrocodone-acetaminophen 5-325 mg tablet 1 - 2 tab PO .Q4-6H Qty: 40 0RF multivitamin Tablet 1 tab PO DAILY atorvastatin 40 mg tablet 40 mg PO QPM calcium carbonate-vitamin D3 600 mg-5 mcg (200 unit) Tablet 1 tab PO DAILY citalopram 20 mg tablet 20 mg PO QAM ascorbic acid (vitamin C) [Vitamin C] 500 mg Tablet 500 mg PO DAILY cholecalciferol (vitamin D3) 50 mcg (2,000 unit) capsule 50 mcg PO DAILY metoprolol tartrate 25 mg tablet 25 mg PO BID prednisone 10 mg tablet See Rx Instructions .ROUTE .COMPLEX Rx Instructions: TAKE ONE TABLET BY MOUTH DAILY FOR 3-7 DAYS NEED FOR JOINT PAIN AND RA FLARE Referrals: Cipriano Allred DO [Primary Care Provider] - Print Language: Indonesian Coding Level of Care Code ED Lot Boss for Analy Valdez
[2025-02-17 09:46] LABS: Basophils # 0.1 10^3/uL (0.0-0.1); Basophils % 0.4 %; Eosinophils # 0.1 10^3/uL (0.0-0.8); Eosinophils % 0.8 %; Hematocrit 38.3 % (36-47); Lymphocytes # 2.1 10^3/uL (0.8-4.8); Lymphocytes % 12.5 %; Mean Corpuscular HGB Conc 31.6 g/dL (30-55); Mean Corpuscular Hemoglobin 29.3 pg (27-33); Mean Corpuscular Volume 92.7 fl (85-98); Mean Platelet Volume 9.9 fL (7.4-10.4); Monocytes # 1.9 10^3/uL (0.2-0.9); Monocytes % 11.5 %; Neutrophils # 12.52 10^3/uL (1.8-7.7); Neutrophils % 74.5 %; Nucleated Red Blood Cells % 0 %; Platelet Count 259 10^3/cmm (157-399); Red Blood Count 4.13 10^6/uL (3.85-5.65); Red Cell Distribution Width 13.5 % (12.1-15.1); White Blood Count 16.81 10^3/uL (3.29-11.43)
[2025-02-17 10:03] LABS: Troponin(5th) Baseline 13 ng/L (0-10)
[2025-02-17 10:07] LABS: Alanine Aminotransferase 12 U/L (0-33); Albumin Level 3.9 g/dL (3.5-5.2); Alkaline Phosphatase 118 U/L (35-105); Aspartate Amino Transferase 14 U/L (0-32); Blood Urea Nitrogen 16 mg/dL (8-23); Calcium 9.2 mg/dL (8.5-10.5); Carbon Dioxide 25 mmol/L (22-29); Chloride 103 mmol/L (98-107); D Dimer 8.19 ug/mLFEU (0-0.59); Globulin 3.1 g/dL (1.3-4.6); Glomerular Filtration Rate 71.8 mL/min (90-130); Glucose 100 mg/dL (65-115); Osmolality Calculated 295 mOsm/kg (285-295); Sodium 142 mmol/L (136-145); Total Bilirubin 0.4 mg/dL (0.15-1.2)
--- NOTE | 2025-02-17 10:07 | CT_ITS ---
WS: [id number] CT CHEST ANGIOGRAPHY WITH REFORMATS HISTORY: chest pain, recent surgery, elevated ddimer TECHNIQUE: Contiguous axial images are obtained through the chest during arterial injection of intravenous contrast. Images are reconstructed to evaluate the pulmonary arteries. MIP imaging also reviewed. All CT scans at [facility] use at least one of these dose optimization techniques: automated exposure control; mA and/or kV adjustment per patient size (includes targeted exams where dose is matched to clinical indication); or iterative reconstruction. CONTRAST: Omnipaque 350; 100 mL IV. DLP: 430.05 mGy.cm COMPARISON: 11/27/2023 Adequate but limited opacification of the pulmonary arteries. No central pulmonary embolism. Focal nonocclusive thrombus segmental branches of the RIGHT lower lobe pulmonary artery. No occlusive thrombus. Upper lobe opacification is limited. No definite additional emboli. Normal size pulmonary artery. Mild atherosclerosis aorta with no dilatation. No RIGHT heart strain. Mild cardiomegaly. RIGHT hilar enlarged lymph node at 1.8 cm. Small pericardial effusion. Dense consolidation within the lingula. This is a round consolidation which appears elliptical on the lateral projection. Consolidation measures 2.4 x 3.3 cm and abuts the LEFT heart. There is adjacent atelectasis. Mild linear atelectasis in the RIGHT middle lobe and at the LEFT lung base. No chest wall abnormality. Small hiatal hernia. Mild hepatic steatosis. No adrenal mass. No destructive bone lesions. Chronic mild anterior wedging of T11 and T12. CT/CT angio chest PE protcl [id number] IMPRESSION: 1. Segmental nonocclusive RIGHT lower lobe pulmonary emboli. 2. New area of consolidation in the lingula. Configuration suspect this is pro bably rounded atelectasis. As this is an area of dense consolidation recommend follow-up chest CT in 3 months. There are additional areas of subsegmental atel ectasis at the LEFT lung base and in the RIGHT middle lobe. 3. Enlarged RIGHT hilar lymph node 1.8 cm was also enlarged on this study of . No increase in size. 4. Small pericardial effusion.
[2025-02-17 10:08] LABS: Anion Gap 18.5 (5-19); Potassium 4.5 mmol/L (3.5-5.1)
[2025-02-17 10:25] LABS: NT Pro B Type Natriuretic Pept 141 pg/mL (0-125)
--- NOTE | 2025-02-17 11:16 | ECG_ITS ---
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 Measurements Intervals [place] Rate: 100 P: 129 HI: 139 QRS: -26 QRSD: 85 T: 28 QT: 331 QTc: 428 Interpretive Statements SINUS TACHYCARDIA LOW QRS VOLTAGE IN PRECORDIAL LEADS [QRS DEFLECTION < 1.0 mV IN CHEST LEADS] ABNORMAL RHYTHM ECG Compared to ECG 02/17/2025 09:19:28 Low QRS voltage now present Myocardial infarct finding now present Sinus rhythm no longer present Electronically Signed On 02-18-2025 13:38:10 CDT by Acacia Navarrete M.D. [email or web address]
[2025-02-17] MEDS: ondansetron 2 mg/ML SDV 2 mL 4 MG IVP (11:19)
[2025-02-17] MEDS: morphine 4 mg/mL SDV 1 mL IVP ×2 (11:19→17:35)
[2025-02-17 12:13] LABS: Troponin 5 2HR 13.92 ng/L (0-10); Troponin 5 2HR Delta 0.92 ABS# (0-10)
[2025-02-17] MEDS: iohexol 350 mg/mL 500 mL Btl (per mL) IV (12:22)
--- NOTE | 2025-02-17 13:37 | USCV_ITS ---
Ifrah Marin Age: 64 Gender: F : 1960 Exam Date: 02/17/2025 14:45 Ordering Phys: Jessica Morales Technologist: Orlando Almonte [place] [facility] [place]: pe, tachycardia, hypoxia BP: 128 / 107 HR: 109 Rhythm: Sinus Technical Quality: Adequate MEASUREMENTS (Male / Female) Normal Values 2D ECHO LV Diastolic Diameter PLAX 3.5 cm 4.2 - 5.9 / 3.9 - 5.3 cm IVS Diastolic Thickness 1.0 cm 0.6 - 1.0 / 0.6 - 0.9 cm IVS Systolic Thickness 1.2 cm LVPW Diastolic Thickness 1.1 cm 0.6 - 1.0 / 0.6 - 0.9 cm LVPW Systolic Thickness 1.2 cm LVOT Diameter 2.0 cm LV Ejection Fraction 2D Teich 54.3 % LV Ejection Fraction MOD 4C 71.6 % LV Ejection Fraction MOD 2C 81.8 % LV Ejection Fraction 2C AL 82.4 % LA Diameter 3.2 cm RA Systolic Volume 4C AL 46.6 ml RA Systolic Volume 4C MOD 46.1 ml LA Sys Volume AL 57.0 cm cubed LA Sys Volume Index AL 26.6 cm cubed/m squared Aorta at Sinotubular Diameter 2.3 cm IVC Diameter 2.0 cm M-MODE LA Ao Ratio MM 1.1 AV Cusp Separation MM 1.4 cm DOPPLER AV Peak Velocity 191.0 cm/s LVOT Peak Velocity 126.0 cm/s AV Area Cont Eq vti 2.5 cm squared AV Area Cont Eq pk 2.1 cm squared MV Peak Velocity 93.0 cm/s MV Area PHT 10.6 cm squared Mitral E to A Ratio 0.8 TV Peak Velocity 248.5 cm/s TR Peak Velocity 309.0 cm/s TR Peak Gradient 38.2 mmHg TR Mean Velocity 258.0 cm/s TR Mean Gradient 27.9 mmHg TR Velocity Time Integral 71.1 cm PV Peak Velocity 99.0 cm/s RV Ejection Time 0.3 s FINDINGS Left Ventricle Normal left ventricular size, systolic function and wall thickness, with no regional wall motion abnormalities. Left ventricular ejection fraction is estimated at 60%. Right Ventricle Normal right ventricular size and systolic function. Right Atrium Normal right atrial size. Left Atrium Normal left atrial size. Mitral Valve Structurally normal mitral valve. No mitral valve regurgitation. Aortic Valve Structurally normal trileaflet aortic valve. No aortic valve stenosis. Tricuspid Valve Structurally normal tricuspid valve. Trace tricuspid valve regurgitation. Normal TR gradient, 28 mmHg. Pulmonic Valve Pulmonic valve not well visualized. Trace pulmonary valve regurgitation. Pericardium No pericardial effusion. Aorta Normal size aortic root and proximal ascending aorta. IVC Inferior vena cava not visualized. CONCLUSIONS Tachycardia during the study. Normal left ventricle functions. Normal LVEF 60% Normal chamber sizes No significant valvular abnormality noted. Normal RV and pulmonary pressures. Acacia Navarrete MD (Electronically Signed) Final Date: 17 February 2025 17:30 S
--- NOTE | 2025-02-17 14:16 | USR_ITS ---
PROCEDURE INFORMATION: Exam: US Duplex Lower Extremity Veins, Bilateral Exam date and time: 02/17/2025 5:50 PM Age: 64 years old Clinical indication: Screening exam; Dvt TECHNIQUE: Imaging protocol: Real-time duplex ultrasound of the bilateral extremities with 2-D dalton scale, color Doppler flow and spectral waveform analysis including responses to compression and other maneuvers (when performed) with image documentation. Complete exam focused on the lower extremity veins. COMPARISON: US renal BI* [id number] 10/12/2024 10:28 AM FINDINGS: Right deep veins: Unremarkable. The common femoral, femoral, proximal profunda femoral and popliteal veins are patent without thrombus. Normal Doppler waveforms. Normal compressibility and/or augmentation response. Left deep veins: Unremarkable. The common femoral, femoral, proximal profunda femoral and popliteal veins are patent without thrombus. Normal Doppler waveforms. Normal compressibility and/or augmentation response. Superficial veins: Greater saphenous veins at the saphenofemoral junctions are patent bilaterally without thrombus. Soft tissues: Unremarkable. US/[place] [id number] IMPRESSION: No evidence of deep vein thrombosis.
--- NOTE | 2025-02-17 14:17 | PM.HP ---
Providers/Chief Complaint Primary Care Provider: Cipriano Allred DO Chief Complaint: chest pain History of Present Illness Ifrah Marin is a 64 year old female with past medical history of rheumatoid arthritis on immunosuppressant medications, pulmonary embolism, HLD, HTN, anxiety, prophylaxis for empyema within last 1 year, kyphoplasty within last 4 days. Patient presents to the ER today because of right-sided chest pain specially on taking a deep breath, shortness of breath, abdominal pain which has been getting worse for last 2 days. Patient has not taken her Eliquis as an outpatient for over a week to 10 days now as she is perioperative. Patient was found to be hypoxic down to mid 80s on room air at rest and to high 70s on exertion in the ER. She was placed on 3 L and her saturation improved to 92%. Examination seen with family at bedside. She is complaining of abdominal pain, looks uncomfortable, is tachycardic with heart rate up to 120 on 3 L. Denies any nausea, vomiting, headache. Complaining of constipation with last bowel movement earlier today morning which was a small amount. Denies any diaphoresis, history of CAD. Review of Systems General: Reports: 10 or more systems reviewed and unremarkable except in HPI and below Const: Denies: fever(s), chills, body aches, change in appetite, change in weight, malaise, night sweats, diaphoresis, change in sleep pattern, daytime sleepiness or snoring Eyes: Denies: change in vision, blurry vision, photophobia, eye discomfort or eye discharge ENMT: Denies: throat pain, enlarged tonsils, hoarseness, mouth pain, oral sores, dry mouth, tinnitus, nasal congestion or post nasal drip Card: Denies: chest pain, palpitations, irregular heart rhythm, edema, swelling of feet/ankles, lightheadedness, syncope, pre-syncope, dyspnea on exertion, orthopnea, leg pain with exertion or acrocyanosis Resp: Denies: dyspnea, productive cough, non-productive cough, wheezing, stridor, pain on inspiration, change in phlegm color, hemoptysis or chest congestion GI: Denies: abdominal pain, nausea, vomiting, hematemesis, coffee ground emesis, dysphagia, heartburn, diarrhea, constipation, bloating, GI cramping, change in bowel habits, pain on defecation, hematochezia or melena : Denies: flank pain, dysuria, urinary frequency, urinary urgency, urinary hesitancy, nocturia or hematuria Musc: Denies: neck pain, back pain, extremity pain, joint pain, joint swelling, joint redness, joint stiffness or limited range of motion Neuro: Denies: headache(s), numbness in extremities, weakness in extremities, sensory changes, lack of coordination, difficulty walking, frequent falls, dizziness, vertigo, confusion, Slurred speech present, difficulty communicating thoughts or seizure-like activity Psych: Denies: anxiety, depression, mood swings, panic attacks, hopelessness or irritability Endo: Denies: polyuria, polydipsia, tired all the time, cold intolerance, excessive sweating, flushing or heat intolerance Jose/Lymph: Denies: easy bruising or easy bleeding All/Imm: Denies: tongue swelling, facial swelling or acute wheezing Medications/Allergies Home Medications ?Medication ?Instructions ?Recorded ?Confirmed ?Last Taken ?Type alprazolam 0.25 mg tablet 0.25 mg PO QAM anxiety 06/28/20 02/17/25 02/16/25 History ascorbic acid (vitamin C) 500 mg 500 mg PO DAILY 11/18/23 02/17/25 02/16/25 History tablet (Vitamin C) atorvastatin 40 mg tablet 40 mg PO QPM 11/18/23 02/17/25 02/16/25 History calcium 600 mg (as 1 tab PO DAILY 11/18/23 02/17/25 02/16/25 History carbonate)-vitamin D3 5 mcg (200 unit) tablet cholecalciferol (vitamin D3) 50 50 mcg PO DAILY 11/18/23 02/17/25 02/16/25 History mcg (2,000 unit) capsule citalopram 20 mg tablet 20 mg PO QAM 11/18/23 02/17/25 02/16/25 History multivitamin 1 tab PO DAILY 11/18/23 02/17/25 02/16/25 History fluticasone propionate 50 1 spray intranasal BID #16 grams 09/25/24 02/17/25 02/10/25 Rx mcg/actuation nasal spray,suspension (Flonase Allergy Relief) metoprolol tartrate 25 mg tablet 25 mg PO BID 09/27/24 02/17/25 02/16/25 History folic acid 1 mg tablet 3 mg (3 x 1 mg) PO DAILY #90 tabs 11/24/24 02/17/25 02/16/25 Rx nitrofurantoin macrocrystal 100 mg 100 mg PO Q12H 10 days #20 caps 02/08/25 02/17/25 02/16/25 Rx capsule hydroxychloroquine 200 mg tablet 200 mg PO BID #180 tabs 02/09/25 02/17/25 02/16/25 Rx prednisone 5 mg tablet See Rx Instructions PO .COMPLEX 02/09/25 02/17/25 Unknown Rx PRN joint pain flare #30 tabs furosemide 20 mg tablet 20 mg PO .AM 02/13/25 02/17/25 02/16/25 History hydrocodone 5 mg-acetaminophen 325 1 - 2 tab PO .Q4-6H #40 tabs 02/13/25 02/17/25 02/16/25 Rx mg tablet prednisone 10 mg tablet See Rx Instructions .Route .COMPLEX 02/17/25 02/17/25 Unknown History Allergies Allergy/AdvReac Type Severity Reaction Status Date / Time No Known Allergies Allergy Verified 02/10/25 09:45 PFSH Acute PFSH: Medical History (Updated 02/17/25 @ 18:00 by Ruslan Van MD) Right lower lobe pneumonia Pleural effusion, right COVID-19 vaccine administered Seropositive rheumatoid arthritis of multiple sites Osteoporosis Other terminal carman (current) drug therapy High risk medication use Immunization counseling Rheumatoid arthritis with rheumatoid factor Leg cramps Surgical History (Updated 02/17/25 @ 17:57 by Ruslan Van MD) Status post kyphoplasty H/O video-assisted thoracoscopic surgery (VATS) History of hysterectomy Family History Other Arthritis Denies family history of Rheumatoid arthritis Lupus Social History Smoking and tobacco/nicotine status: former use of tobacco/nicotine Vitals/I&O/Wt Last Vital Signs Temp 98.0 F 02/17/25 09:43 Pulse 99 02/17/25 12:59 Resp 20 H 02/17/25 09:21 BP 128/107 02/17/25 12:59 Pulse Ox 94 02/17/25 12:59 O2 Del Method Nasal Cannula 02/17/25 12:59 O2 Flow Rate 3 02/17/25 12:59 Weight last 48 hrs Weight 96.162 kg Physical Exam Narrative: General: In acute distress, AO x3 HEENT: PERRLA, pupils bilaterally equal and reactive Chest: Normal vesicular breath sounds, no added sounds, equal good air entry bilaterally CVS: S1-S2 regular, no murmurs, no tachycardia, no gallops, no rubs Abdomen: Soft, nontender, no organomegaly, bowel sounds present Neuro: No focal deficits, no facial deformity, AO x3, power 5/5 in all limbs Data 02/18/25 03:54 02/18/25 03:54 A&P Assessment and plan (1) Sepsis: SIRS: Tachycardic, , Leukocytosis Source: Pneumonia versus intra-abdominal pathology End organ damage: Respiratory failure Lactic acid within normal limits Patient did not receive full 30 mL/kg BW given concerns for fluid overload Monitor blood pressures. Keep mean artery pressure 65 mmHg. Blood culture, urine culture, MRSA swab, trend procalcitonin, sputum culture. Empirically start patient on IV vancomycin and Zosyn for now. De-escalate as per culture sensitivities. If MRSA swab is negative will discontinue vancomycin. (2) Acute hypoxic respiratory failure: Most likely a combination of PE, COPD, pneumonia. Patient does have history of rheumatoid arthritis so cannot rule out rheumatoid lung disease. Also has history of VATS for empyema within last 1 year. Oxen supplementation keeping saturation over 88%. Nebulization with Pulmicort twice daily, ipratropium, Xopenex every 6 hour. Solu-Medrol 125 mg stat followed by 40 mg every 6 hourly. (3) Pulmonary embolism: Check echocardiogram to rule out right heart strain. Patient getting severely hypoxic on room air on exertion. For now switch to heparin drip. Will plan to transition to full dose Eliquis of 10 mg twice daily for 7 days followed 5 mg twice daily going forward. Patient will need to be on anticoagulation going forward for rest of her life given second PE. (4) Pneumonia: As above. Qualifiers: Laterality: right Lung location: lower lobe of lung Pneumonia type: due to unspecified organism Qualified Code(s): J18.9 - Pneumonia, unspecified organism (5) Status post kyphoplasty: Wound appears healthy. Patient denies any back pain. If any concerns for worsening wound, we will consult orthopedics again. (6) Abdominal pain: Unknown cause. Cannot rule out small bowel obstruction. Chances of pancreatitis. Patient does have urine culture positive for E. coli within last 3 days. Cannot rule out pyelonephritis. Also has elevated alkaline phosphatase. Cannot rule out gallbladder pathology. Check CT abdomen pelvis without contrast. Liver ultrasound. Morphine 2 mg every 4 hours as needed. N.p.o. for now. Protonix IV twice daily, Zofran as needed. (7) Urinary tract infection: Appreciate urine culture recently. Antibiotics as above will suffice. (8) Elevated alkaline phosphatase level: Plan Full code. Son will be the DPOA. NPO. Protonix for PUD prophylaxis Heparin will be sufficient for DVT prophylaxis. PDMP PDMP Reviewed: Last Reviewed 02/18/25 12:19 by Ruslan Van MD Attestations Medical Necessity Statement*: Admission for more than 2 midnights for management of acute hypoxic respiratory failure with sepsis in setting of pulmonary embolism, pneumonia, COPD, UTI, abdominal pain in a patient who was recently postoperative for kyphoplasty Diagnoses Sepsis A41.9 Acute hypoxic respiratory failure J96.01 Pulmonary embolism I26.99 Pneumonia J18.9 Laterality: right Lung location: lower lobe of lung Pneumonia type: due to unspecified organism Status post kyphoplasty Z98.890 Abdominal pain R10.9 Urinary tract infection N39.0 Elevated alkaline phosphatase level R74.8
[2025-02-17 14:27] LABS: Bilirubin Urine Negative (Negative); Blood Urine Trace (Negative); Glucose Urine UA Negative (Normal); Ketones Urine Negative (Negative); Leukocyte Esterase Urine 2+ (Negative); Nitrate Urine Negative (Negative); Protein Urine Negative (Negative); Urine Appearance Clear (CLEAR); Urine Color Yellow (Yellow); Urobilinogen Urine 0.2 mg/dL (Negative)
[2025-02-17 14:32] LABS: Add Urine Microscopic? YES; Bacteria Urine 2+ /hpf; Hyaline Casts Urine 4.52 /lpf; Squamous Epithelial Cell Urine 0-5 /hpf (0-5); WBC Urine 51-100 /hpf (0-5)
[2025-02-17 14:48] LABS: UA Slide Review UA Slide Review Perf
[2025-02-17 14:49] LABS: Add Urine Culture? Yes
[2025-02-17 15:03] LABS: Procalcitonin 0.07 ng/mL (0-0.5); Thyroid Stimulating Hormone 1.38 uIU/mL (0.27-4.20)
[2025-02-17] MEDS: piperacillin-tazobactam 3.375 GM in sodium chloride 0.9% (plus) 50 ML IV ×2 (15:17→23:16)
[2025-02-17] MEDS: heparin 5,000 unit/mL INJ 1 mL IVP (15:19)
[2025-02-17] MEDS: heparin drip 25,000 UNIT/500 ML PREMIX 27 UNIT IV (15:20)
[2025-02-17] MEDS: methylPREDNISolone sod succ 125 mg/2 mL INJ IVP (15:22)
--- NOTE | 2025-02-17 15:26 | ECG_ITS ---
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 Measurements Intervals [place] Rate: 112 P: 121 ID: [id number] QRS: -27 QRSD: 83 T: 95 QT: 327 QTc: 447 Interpretive Statements SINUS TACHYCARDIA LOW QRS VOLTAGE IN PRECORDIAL LEADS [QRS DEFLECTION < 1.0 mV IN CHEST LEADS] POSSIBLE ANTERIOR MYOCARDIAL INFARCTION , OF INDETERMINATE AGE [30 ms Q WAVE IN V3/V4, OR R < 0.2 mV IN V4] Compared to ECG 02/17/2025 11:14:51 No significant changes Electronically Signed On 02-18-2025 13:36:25 CDT by Acacia Navarrete M.D. [id number]
[2025-02-17 16:05] LABS: Troponin 5 6HR 15.01 ng/L (0-10); Troponin 5 6HR Delta 2.01 ng/L (0-12)
[2025-02-17 16:06] LABS: Lactic Sepsis W/Reflex 1.6 mmol/L (0.5-2.2)
--- NOTE | 2025-02-17 16:11 | CTR_ITS ---
PROCEDURE INFORMATION: Exam: CT Abdomen And Pelvis Without Contrast Exam date and time: 02/17/2025 6:39 PM Age: 64 years old Clinical indication: Pain and abnormal findings; Abnormal lab test; Elevated wbc; Abdominal pain; Prior surgery; Surgery date: <1 month; Surgery type: Kyphoplasty last week. Hysterectomy; Diffuse abd pain with reduced urinary output. ; Additional info: Abd pain, possible sbo/ pyelo TECHNIQUE: Imaging protocol: Computed tomography of the abdomen and pelvis without contrast. Radiation optimization: All CT scans at this facility use at least one of these dose optimization techniques: automated exposure control; mA and/or kV adjustment per patient size (includes targeted exams where dose is matched to clinical indication); or iterative reconstruction. COMPARISON: CT abdomen pelvis w con* [id number] 09/27/2024 9:30 AM RADIATION DOSE METRICS: Total DLP (mGy-cm): 931.35 FINDINGS: Lungs: Bibasilar atelectasis and/or scarring. Heart: Heart size is within normal limits. There is no pericardial effusion or pericardial thickening. Liver: There is diffuse decreased attenuation of the hepatic parenchyma consistent with fatty infiltration. The liver is otherwise normal. There are no hepatic masses identified. Gallbladder and biliary ducts: Hyperdense material within the gallbladder likely related to vicarious excretion of contrast given contrast within the renal collecting systems. No gallbladder wall thickening. Pancreas: The pancreas is atrophic without obvious abnormality. Questionable pancreatic tail resection. Spleen: The spleen is normal. Adrenal glands: The adrenal glands are normal. Kidneys and ureters: No renal calcifications are identified. There is no hydronephrosis. Limited evaluation for renal calcification given contrast within the collecting systems. Stomach and bowel: Mild colonic diverticulosis without diverticulitis. Mild retained colonic stool. There is no large or small bowel obstruction. There is no evidence of bowel wall thickening. Appendix: A normal appendix is identified. Intraperitoneal space: No inflammatory changes are identified. There is no free fluid or fluid collection seen. There is no pneumoperitoneum. Vasculature: Atherosclerotic calcifications of the aorta are present. No aneurysm is identified. Lymph nodes: No enlarged lymph nodes are identified. Urinary bladder: The bladder is decompressed and contains a Benoit catheter. Reproductive: The uterus is absent. Bones/joints: Fractures of L1, L2, L3, and L4, stable compared to 02/07/2025 apart from vertebroplasty in L1-L3. Stable compression fractures in the lower thoracic spine. No acute osseous abnormalities are seen. Soft tissues: Small periumbilical hernia containing only fat. CT/CT abdomen pelvis wo con [id number] IMPRESSION: 1. No acute intra-abdominal or pelvic process. 2. Moderate bibasilar atelectasis. COMMENTS: Consistent with the [employer]'s Incidental Findings Committee white paper (J Am Cortney Radiol 2018): Any incidental renal lesion less than 1 cm or classified as too small to characterize, or any incidental cystic renal lesion characterized as simple-appearing, is likely benign. No follow-up imaging is recommended for these lesions per consensus recommendations based on imaging criteria.
--- NOTE | 2025-02-17 17:03 | XRR_ITS ---
PROCEDURE INFORMATION: Exam: XR Chest Exam date and time: 02/17/2025 5:35 PM Age: 64 years old Clinical indication: Other vascular access device placement or adjustment; Central line, non-tunnelled; Central line confirmation; Additional info: Central line placement TECHNIQUE: Imaging protocol: Radiologic exam of the chest. Views: 1 view. COMPARISON: 1. CT angio chest PE protcl [id number] 02/17/2025 11:58 AM 2. CR XR chest 1V portable [id number] 02/17/2025 9:50 AM FINDINGS: Tubes, catheters and devices: Left internal jugular venous catheter terminating in the region of the cavoatrial junction. Lungs: Bibasilar linear opacities consistent with scarring or atelectasis, stable compared to CT earlier in the day. Pleural spaces: No pleural effusion or pneumothorax. Heart/Mediastinum: The cardiomediastinal silhouette is stable. Bones/joints: No acute osseous abnormalities are seen. Healed right posterior rib fracture. Soft tissues: The soft tissues are within normal limits. XR/XR chest 1V portable [id number] IMPRESSION: Left internal jugular venous catheter terminating in the region of the cavoatrial junction.
--- NOTE | 2025-02-17 17:04 | USR_ITS ---
PROCEDURE INFORMATION: Exam: US Duplex Artery or Vein of the Abdominal and/or Reproductive Organs, Limited Liver Exam date and time: 02/17/2025 6:10 PM Age: 64 years old Clinical indication: Screening exam; Other: Possible cholecystitis. Pain. TECHNIQUE: Imaging protocol: Real-time duplex ultrasound scan of the arterial or venous flow with color Doppler flow and spectral waveform analysis with image documentation. Limited Duplex exam focused on the liver and portal venous system. Duplex exam was performed to evaluate for vascular conditions. COMPARISON: US renal BI* [id number] 10/12/2024 10:28 AM FINDINGS: Portal venous: Patent. Normal waveforms. Normal hepatopetal (towards the liver) flow. Hepatic artery: Not assessed. PROCEDURE INFORMATION: Exam: US Abdomen, Limited; Right Upper Quadrant Exam date and time: 02/17/2025 6:10 PM Age: 64 years old Clinical indication: Screening exam; Other: Possible cholecystitis TECHNIQUE: Imaging protocol: Real time ultrasound of the abdomen with image documentation. Limited exam focused on the right upper quadrant. COMPARISON: US renal BI* [id number] 10/12/2024 10:28 AM FINDINGS: Limitations: Underpenetration secondary to bowel gas and body habitus. Liver: There is diffuse increased echogenicity of the hepatic parenchyma consistent with fatty infiltration. No hepatic masses are identified by ultrasound. Gallbladder: No gallstones identified. No gallbladder wall thickening. Biliary ducts: There is no evidence of intra or extrahepatic ductal dilatation. The common bile duct measures 4 mm. Pancreas: The visualized portions of the pancreas are within normal limits. The tail is obscured by bowel gas. Right kidney: The right kidney is suboptimally visualized. There is no evidence of renal calcification or hydronephrosis. The right kidney measures 9.4 cm. Portal venous: The portal vein is patent. US/US liver [id number] IMPRESSION: Unremarkable duplex of the portal vein. IMPRESSION: Fatty liver.
--- NOTE | 2025-02-17 17:29 | PHA.VACGOAL ---
Vancomycin Goal - Goal Vancomycin Goal:: 15-20 mg/L Vancomycin Indication:: Other - Therapy Current therapy:: Pip/Tazo (ONE DOSE IN ER) Day of therpy:: Day 1 of [] Actual body weight (kg): 212 lb - Data Labs: WBC 16.81 10^3/uL (3.29-11.43) H 02/17/25 09:37 RBC 4.13 10^6/uL (3.85-5.65) 02/17/25 09:37 Hgb 12.10 g/dL (11.27-16.99) 02/17/25 09:37 Hct 38.3 % (36-47) 02/17/25 09:37 MCV 92.7 fl (85-98) 02/17/25 09:37 MCH 29.3 pg (27-33) 02/17/25 09:37 MCHC 31.6 g/dL (30-55) 02/17/25 09:37 RDW 13.5 % (12.1-15.1) 02/17/25 09:37 Sodium 142 mmol/L (136-145) 02/17/25 09:37 Potassium 4.5 mmol/L (3.5-5.1) 02/17/25 09:37 Chloride 103 mmol/L (98-107) 02/17/25 09:37 Carbon Dioxide 25 mmol/L (22-29) 02/17/25 09:37 Anion Gap 18.5 (5-19) 02/17/25 09:37 BUN 16 mg/dL (8-23) 02/17/25 09:37 Creatinine 0.8 mg/dL (0.5-0.9) 02/17/25 09:37 GFR Calculation 71.8 mL/min (90-130) L 02/17/25 09:37 Last dialysis session:: N/A Treatment plan:: new consult Regimen:: INITIAL LOADING DOSE OF 3000 MG PER DOSING PROTOCOL. MAINTENANCE DOSE OF 1500 MG Q12H. Follow up:: WILL CONTINUE TO MONITOR AND FOLLOW UP DAILY
[2025-02-17] MEDS: lidocaine-epi 1% 20 mL INJ INJECTION (17:35)
[2025-02-17 19:18] LABS: Iron 21 ug/dL (37-145); Lipase 17 U/L (13-60); Percent Saturation 5.9 % (20-50); Total Iron Binding Capacity 355 mcg/dl; Unsaturated Iron Binding 334 ug/dL (112-347)
[2025-02-17] MEDS: vancomycin 1,500 MG/300 ML PIGGYBACK 200 MG IV (19:20)
[2025-02-17] MEDS: HYDROcodone-acetaminophen 5-325 mg Tablet 1 TAB PO (19:20)
[2025-02-17] MEDS: metoprolol tartrate 25 mg Tablet PO (19:20)
[2025-02-17] MEDS: docusate sodium 100 mg Capsule PO (19:20)
[2025-02-17] MEDS: atorvastatin 40 mg Tablet PO (19:21)
[2025-02-17] MEDS: pantoprazole 40 mg SDV IVP (19:21)
[2025-02-17 19:34] LABS: Vitamin B12 439 pg/mL (232-1245)
[2025-02-17] MEDS: ipratropium 0.5 mg/2.5 mL Neb INHALATION (21:12)
[2025-02-17] MEDS: levalbuterol 0.63 mg/3 mL Neb INHALATION (21:12)
[2025-02-17] MEDS: budesonide 0.5 mg/2 mL Neb INHALATION (21:13)
[2025-02-17 22:33] LABS: Adenovirus Not Detected (NOT DETECT); Chlamydia Pneumoniae Not Detected (NOT DETECT); Coronavirus 229E,HKU1,NL63,OC4 Not Detected (NOT DETECT); Human Metapneumovirus Not Detected (NOT DETECT); Human Rhinovirus/Enterovirus Not Detected (NOT DETECT); Influenza A Not Detected (NOT DETECT); Influenza A H1 Not Detected (NOT DETECT); Influenza A H1-2009 Not Detected (NOT DETECT); Influenza A H3 Not Detected (NOT DETECT); Influenza B Not Detected (NOT DETECT); Mycoplasma Pneumoniae Not Detected (NOT DETECT); Parainfluenza Virus Type 1 Not Detected (NOT DETECT); Parainfluenza Virus Type 2 Not Detected (NOT DETECT); Parainfluenza Virus Type 3 Not Detected (NOT DETECT); Parainfluenza Virus Type 4 Not Detected (NOT DETECT); Respiratory Syncytial Virus A Not Detected (NOT DETECT); Respiratory Syncytial Virus B Not Detected (NOT DETECT); SARS-COV-2 Not Detected (NOT DETECT)
[2025-02-17 22:44] LABS: Estmated Average Glucose 126
[2025-02-17] MEDS: methylPREDNISolone sod succ 40 mg/mL INJ IVP (23:16)
[2025-02-18] VITALS (45 sets, daily range): BP systolic 99–144; BP diastolic 57–87; PULSE 60–87; RESP 12–30; TEMP 36.1–36.8; O2SAT 74–98
[2025-02-18] MEDS: HYDROcodone-acetaminophen 5-325 mg Tablet 1 TAB PO ×3 (00:53→19:36)
[2025-02-18] MEDS: levalbuterol 0.63 mg/3 mL Neb INHALATION ×4 (02:49→20:54)
[2025-02-18] MEDS: ipratropium 0.5 mg/2.5 mL Neb INHALATION ×4 (02:49→20:54)
[2025-02-18 04:11] LABS: Basophils % 0.1 %; Hematocrit 34.9 % (36-47); Lymphocytes # 1.3 10^3/uL (0.8-4.8); Lymphocytes % 7.7 %; Mean Corpuscular HGB Conc 31.8 g/dL (30-55); Mean Corpuscular Hemoglobin 29.5 pg (27-33); Mean Corpuscular Volume 92.8 fl (85-98); Mean Platelet Volume 9.8 fL (7.4-10.4); Monocytes # 0.5 10^3/uL (0.2-0.9); Monocytes % 2.9 %; Neutrophils # 14.64 10^3/uL (1.8-7.7); Neutrophils % 88.9 %; Nucleated Red Blood Cells % 0 %; Platelet Count 249 10^3/cmm (157-399); Red Blood Count 3.76 10^6/uL (3.85-5.65); Red Cell Distribution Width 13.5 % (12.1-15.1); White Blood Count 16.46 10^3/uL (3.29-11.43)
[2025-02-18 04:38] LABS: Alanine Aminotransferase 11 U/L (0-33); Albumin Level 3.4 g/dL (3.5-5.2); Alkaline Phosphatase 99 U/L (35-105); Anion Gap 16.4 (5-19); Aspartate Amino Transferase 10 U/L (0-32); Blood Urea Nitrogen 17 mg/dL (8-23); Calcium 8.5 mg/dL (8.5-10.5); Carbon Dioxide 25 mmol/L (22-29); Chloride 103 mmol/L (98-107); Chol HDL Ratio 1.94 mg/dL (0.0-4.40); Cholesterol 124 mg/dL (0-200); Creatinine Clr Calc Pharmacy 80.3722; Globulin 3.1 g/dL (1.3-4.6); Glomerular Filtration Rate 83.7 mL/min (90-130); Glucose 137 mg/dL (65-115); HDL Cholesterol 64 mg/dL (60-100); LDL Cholesterol Calculated 49 mg/dL (50-129); LDL HDL Ratio 0.77 RATIO (0.00-3.22); Magnesium 1.8 mg/dL (1.7-2.3); Osmolality Calculated 294 mOsm/kg (285-295); Phosphorus 4.2 mg/dL (2.5-4.5); Potassium 4.4 mmol/L (3.5-5.1); Sodium 140 mmol/L (136-145); Total Bilirubin 0.4 mg/dL (0.15-1.2); Total Protein 6.5 g/dL (6.6-8.7); Triglycerides 57 mg/dL (0-150)
[2025-02-18 04:40] LABS: Procalcitonin 0.21 ng/mL (0-0.5)
[2025-02-18] MEDS: citalopram 20 mg Tablet PO (06:00)
[2025-02-18 06:05] LABS: Folate Level > 20.0 ng/mL (4.8-37.3)
[2025-02-18] MEDS: ALPRAZolam 0.5 mg Tablet 0.25 MG PO (06:05)
[2025-02-18] MEDS: vancomycin 1,500 MG/300 ML PIGGYBACK 200 MG IV (06:06)
[2025-02-18] MEDS: piperacillin-tazobactam 3.375 GM in sodium chloride 0.9% (plus) 50 ML IV ×3 (06:10→22:27)
[2025-02-18] MEDS: budesonide 0.5 mg/2 mL Neb INHALATION ×2 (07:48→20:54)
[2025-02-18] MEDS: methylPREDNISolone sod succ 40 mg/mL INJ IVP ×3 (07:53→22:30)
[2025-02-18] MEDS: docusate sodium 100 mg Capsule PO ×2 (08:42→17:46)
[2025-02-18] MEDS: metoprolol tartrate 25 mg Tablet PO ×2 (08:42→17:46)
[2025-02-18] MEDS: folic acid 1 mg Tablet 3 MG PO (08:42)
[2025-02-18 10:36] LABS: Partial Thromboplastin Time 61.9 SECONDS (23.9-36.7)
[2025-02-18] MEDS: FUROsemide 10 mg/mL SDV 2mL 20 MG IVP (13:17)
[2025-02-18] MEDS: magnesium hydroxide 30 mL UDC PO (13:18)
[2025-02-18] MEDS: heparin drip 25,000 UNIT/500 ML PREMIX 15 UNIT IV (15:16)
--- NOTE | 2025-02-18 15:48 | PM.PN ---
Subjective Subjective: No acute events overnight. Patient seen sitting up in chair today. States feeling slightly better. Continues to complain of left sided chest pain specially on taking deep breath. Complaining of abdominal heaviness. Has remained hemodynamically stable and afebrile. Saturating well on 3 L. Does desaturate on exertion. Vitals/I&O/Wt Last Vital Signs Temp 97.7 F 02/18/25 04:45 Pulse 81 02/18/25 14:20 Resp 24 H 02/18/25 14:00 BP 116/67 02/18/25 14:00 Pulse Ox 90 02/18/25 14:00 O2 Del Method Nasal Cannula 02/18/25 14:00 O2 Flow Rate 3 02/18/25 14:00 02/18/25 02/18/25 02/18/25 06:59 14:59 22:59 Intake Total 285.8 / 823.45 538.75 / 538.75 69 / 607.75 Output Total 750 / 750 Balance -464.2 / 73.45 538.75 / 538.75 69 / 607.75 Weight last 48 hrs Weight 98.5 kg Weight 98.5 kg Weight 96.162 kg Physical Exam Narrative: General: In acute distress, AO x3, chronically sick appearing HEENT: PERRLA, pupils bilaterally equal and reactive Chest: Bilateral bronchial breath sounds all over lung verde with occasional rhonchi, coarse, present right more than left CVS: S1-S2 regular, no murmurs, no tachycardia, no gallops, no rubs Abdomen: Soft, mild generalized tenderness no organomegaly, bowel sounds present sluggish Neuro: No focal deficits, no facial deformity, AO x3, power 5/5 in all limbs Urinary Catheter Management: Benoit: Cath Placed During This Visit: no Reason for Continuing Indwelling Catheter: Accurate Measurement of Urinary Output in Critically Ill Patients Data 02/18/25 03:54 02/18/25 03:54 Micro: Microbiology 02/17/25 15:40 Blood Culture - Preliminary Blood NEGATIVE TO DATE 02/17/25 15:35 Blood Culture - Preliminary Blood NEGATIVE TO DATE 02/17/25 14:23 Urine Culture - Preliminary Urine,Clean Catch Gram Negative Rods A&P Assessment and plan (1) Sepsis: SIRS: Tachycardic, , Leukocytosis Source: Pneumonia versus intra-abdominal pathology End organ damage: Respiratory failure Lactic acid within normal limits Patient did not receive full 30 mL/kg BW given concerns for fluid overload Monitor blood pressures. Keep mean artery pressure 65 mmHg. Follow-up blood culture, urine culture, negative MRSA swab in last 1 year, appreciate negative trend procalcitonin, still not collected sputum culture. Empirically start patient on IV vancomycin and Zosyn for now. De-escalate as per culture sensitivities. (2) Acute hypoxic respiratory failure: Most likely a combination of PE, COPD, pneumonia. Patient does have history of rheumatoid arthritis so cannot rule out rheumatoid lung disease. Also has history of VATS for empyema within last 1 year. Oxen supplementation keeping saturation over 88%. Nebulization with Pulmicort twice daily, ipratropium, Xopenex every 6 hour. Wean Solu-Medrol 40 mg every 8 hourly. Will plan to wean further in next 24 hours. Concern for mild diastolic heart failure. IV Lasix 40 mg one-time. Strict input output charting, daily weights. (3) Pulmonary embolism: Echocardiogram shows an EF of 60% without concerns for regional wall motion normality or right-sided heart strain. Patient getting severely hypoxic on room air on exertion. Continue with heparin drip. Will plan to transition to full dose Eliquis of 10 mg twice daily for 7 days followed 5 mg twice daily going forward. Patient will need to be on anticoagulation going forward for rest of her life given second PE. (4) Pneumonia: As above. Qualifiers: Laterality: right Lung location: lower lobe of lung Pneumonia type: due to unspecified organism Qualified Code(s): J18.9 - Pneumonia, unspecified organism (5) Status post kyphoplasty: Wound appears healthy. Patient denies any back pain. If any concerns for worsening wound, we will consult orthopedics again. (6) Abdominal pain: Unknown cause. Appreciate CT on pelvis. Ruled out small bowel obstruction, pancreatitis, gallbladder pathology, renal colic. Still cannot rule out pyelonephritis as it was a noncontrast study due to patient having more generalized abdominal pain and renal angle tenderness. Start on clear liquid diet. If continues to tolerate will start on regular diet in next 24 hours. Continue with home pain medications with [place] every 6 hours as needed. Morphine 2 mg 4 hours as needed. Aggressive bowel regimen with daily milk of mag, Colace twice daily. Protonix IV twice daily, Zofran as needed. (7) Urinary tract infection: Appreciate urine culture recently. Antibiotics as above will suffice. (8) Elevated alkaline phosphatase level: Plan Continue other chronic home medications. Full code. Son will be the DPOA. Clear liquid diet Protonix for PUD prophylaxis Heparin will be sufficient for DVT prophylaxis. Transfer to [facility] floor. PDMP PDMP Reviewed: Last Reviewed 02/18/25 12:19 by Ruslan Van MD Attestations Medical Necessity Statement*: Requires further hospitalization for management of acute hypoxic respiratory failure in setting of pulmonary embolism, sepsis in setting of UTI/cystitis Diagnoses Sepsis A41.9 Acute hypoxic respiratory failure J96.01 Pulmonary embolism I26.99 Pneumonia J18.9 Laterality: right Lung location: lower lobe of lung Pneumonia type: due to unspecified organism Status post kyphoplasty Z98.890 Abdominal pain R10.9 Urinary tract infection N39.0 Elevated alkaline phosphatase level R74.8
[2025-02-18 16:00] LABS: Partial Thromboplastin Time 46.4 SECONDS (23.9-36.7)
[2025-02-18] MEDS: atorvastatin 40 mg Tablet PO (17:46)
[2025-02-18] MEDS: vancomycin 1,250 MG/250 ML PIGGYBACK 166.67 MG IV (17:47)
[2025-02-18] MEDS: pantoprazole 40 mg SDV IVP (17:54)
--- NOTE | 2025-02-18 18:04 | PC.NURSE ---
pts family stopped pts pump, pt was educ on why they should not be bothered and the risk of her or her visitors bothering the pumps. all pumps were locked by this nurse
[2025-02-18 22:11] LABS: Partial Thromboplastin Time 51.8 SECONDS (23.9-36.7)
[2025-02-19] VITALS (11 sets, daily range): BP systolic 119–144; BP diastolic 72–88; PULSE 66–91; RESP 16–20; TEMP 36.3–36.9; O2SAT 90–96
[2025-02-19] MEDS: ipratropium 0.5 mg/2.5 mL Neb INHALATION ×4 (02:24→20:38)
[2025-02-19] MEDS: levalbuterol 0.63 mg/3 mL Neb INHALATION ×4 (02:24→20:37)
[2025-02-19 04:36] LABS: Basophils % 0.1 %; Hematocrit 34.1 % (36-47); Lymphocytes # 1.1 10^3/uL (0.8-4.8); Lymphocytes % 6.3 %; Mean Corpuscular Hemoglobin 29.9 pg (27-33); Mean Corpuscular Volume 93.7 fl (85-98); Monocytes # 1.1 10^3/uL (0.2-0.9); Monocytes % 6.3 %; Neutrophils # 14.37 10^3/uL (1.8-7.7); Neutrophils % 86.8 %; Nucleated Red Blood Cells % 0 %; Platelet Count 266 10^3/cmm (157-399); Red Blood Count 3.64 10^6/uL (3.85-5.65); Red Cell Distribution Width 13.5 % (12.1-15.1); White Blood Count 16.57 10^3/uL (3.29-11.43)
[2025-02-19 04:49] LABS: Partial Thromboplastin Time 63.8 SECONDS (23.9-36.7)
[2025-02-19 04:59] LABS: Alkaline Phosphatase 91 U/L (35-105); Chloride 103 mmol/L (98-107); Sodium 141 mmol/L (136-145)
[2025-02-19 05:11] LABS: Vancomycin Trough 25.5 ug/mL (10-15)
[2025-02-19 06:03] LABS: Alanine Aminotransferase 9 U/L (0-33); Albumin Level 3.5 g/dL (3.5-5.2); Anion Gap 19.2 (5-19); Aspartate Amino Transferase 10 U/L (0-32); Blood Urea Nitrogen 15 mg/dL (8-23); Calcium 8.7 mg/dL (8.5-10.5); Carbon Dioxide 23 mmol/L (22-29); Globulin 2.8 g/dL (1.3-4.6); Glomerular Filtration Rate 83.7 mL/min (90-130); Glucose 129 mg/dL (65-115); Magnesium 2.2 mg/dL (1.7-2.3); Osmolality Calculated 295 mOsm/kg (285-295); Phosphorus 3.3 mg/dL (2.5-4.5); Potassium 4.2 mmol/L (3.5-5.1); Total Bilirubin 0.4 mg/dL (0.15-1.2); Total Protein 6.3 g/dL (6.6-8.7)
[2025-02-19] MEDS: citalopram 20 mg Tablet PO (06:18)
[2025-02-19] MEDS: ALPRAZolam 0.5 mg Tablet 0.25 MG PO (06:18)
[2025-02-19] MEDS: piperacillin-tazobactam 3.375 GM in sodium chloride 0.9% (plus) 50 ML IV (06:18)
[2025-02-19] MEDS: methylPREDNISolone sod succ 40 mg/mL INJ IVP ×2 (06:37→17:07)
[2025-02-19] MEDS: budesonide 0.5 mg/2 mL Neb INHALATION ×2 (08:48→20:38)
[2025-02-19] MEDS: folic acid 1 mg Tablet 3 MG PO (08:59)
[2025-02-19] MEDS: docusate sodium 100 mg Capsule PO (08:59)
[2025-02-19] MEDS: metoprolol tartrate 25 mg Tablet PO ×2 (08:59→17:06)
[2025-02-19] MEDS: magnesium hydroxide 30 mL UDC PO (09:00)
[2025-02-19 10:38] LABS: Partial Thromboplastin Time 58.9 SECONDS (23.9-36.7)
[2025-02-19] MEDS: aztreonam 1,000 MG in sodium chloride 0.9% (plus) 50 ML 100 MG IV ×2 (11:43→22:25)
[2025-02-19] MEDS: FUROsemide 10 mg/mL SDV 2mL 20 MG IVP (11:44)
[2025-02-19] MEDS: apixaban 5 mg Tablet 10 MG PO ×2 (12:30→20:15)
--- NOTE | 2025-02-19 13:14 | P.PN_ITS ---
Subjective 2 Subjective: No acute vents overnight. Seen with multiple family members at bedside. Sitting up in bed today. Awake and alert. Remains on 2 to 3 L of oxygen supplementation. Saturations maintained. Complaining of bloating of her belly. Vitals/I&O/Wt Last Vital Signs Temp 98.5 F 02/19/25 11:17 Pulse 81 02/19/25 11:17 Resp 19 H 02/19/25 11:17 BP 119/76 02/19/25 11:17 Pulse Ox 94 02/19/25 11:17 O2 Del Method Nasal Cannula 02/19/25 11:17 O2 Flow Rate 3 02/19/25 08:00 02/18/25 02/19/25 02/19/25 22:59 06:59 14:59 Intake Total 1376.117 / 1914.867 175.083 / 2089.950 877.800 / 877.800 Output Total 1999 / 1999 900 / 2900 Balance -623.883 / -85.133 -724.917 / -810.050 877.800 / 877.800 Weight last 48 hrs Weight 100.743 kg Weight 98.5 kg Weight 98.5 kg Physical Exam 2 Narrative: General: In acute distress, AO x3, chronically sick appearing HEENT: PERRLA, pupils bilaterally equal and reactive Chest: Bilateral bronchial breath sounds all over lung verde with occasional rhonchi, coarse, present right more than left CVS: S1-S2 regular, no murmurs, no tachycardia, no gallops, no rubs Abdomen: Soft, mild generalized tenderness no organomegaly, bowel sounds present sluggish Neuro: No focal deficits, no facial deformity, AO x3, power 5/5 in all limbs Urinary Catheter Management: Benoit: Cath Placed During This Visit: no Reason for Continuing Indwelling Catheter: Other Data 02/19/25 04:29 02/19/25 04:29 Micro: Microbiology 02/17/25 14:23 Urine Culture - Final Urine,Clean Catch Escherichia coli 02/17/25 15:40 Blood Culture - Preliminary Blood NEGATIVE TO DATE 02/17/25 15:35 Blood Culture - Preliminary Blood NEGATIVE TO DATE A&P Assessment and plan (1) Sepsis: SIRS: Tachycardic, , Leukocytosis Source: Pneumonia versus intra-abdominal pathology End organ damage: Respiratory failure Lactic acid within normal limits Patient did not receive full 30 mL/kg BW given concerns for fluid overload Monitor blood pressures. Keep mean artery pressure 65 mmHg. Follow-up blood culture, urine culture, negative MRSA swab in last 1 year, appreciate negative trend procalcitonin, still not collected sputum culture. Empirically start patient on IV vancomycin and Zosyn for now. De-escalate as per culture sensitivities. (2) Acute hypoxic respiratory failure: Most likely a combination of PE, COPD, pneumonia. Patient does have history of rheumatoid arthritis so cannot rule out rheumatoid lung disease. Also has history of VATS for empyema within last 1 year. Oxen supplementation keeping saturation over 88%. Nebulization with Pulmicort twice daily, ipratropium, Xopenex every 6 hour. Wean Solu-Medrol 40 mg every 8 hourly. Will plan to wean further in next 24 hours. Concern for mild diastolic heart failure. IV Lasix 40 mg one-time. Strict input output charting, daily weights. (3) Pulmonary embolism: Echocardiogram shows an EF of 60% without concerns for regional wall motion normality or right-sided heart strain. Patient getting severely hypoxic on room air on exertion. Continue with heparin drip. Will plan to transition to full dose Eliquis of 10 mg twice daily for 7 days followed 5 mg twice daily going forward. Patient will need to be on anticoagulation going forward for rest of her life given second PE. (4) Pneumonia: As above. Qualifiers: Laterality: right Lung location: lower lobe of lung Pneumonia type: d ue to unspecified organism Qualified Code(s): J18.9 - Pneumonia, unspecified organism (5) Status post kyphoplasty: Wound appears healthy. Patient denies any back pain. If any concerns for worsening wound, we will consult orthopedics again. (6) Abdominal pain: Unknown cause. Appreciate CT on pelvis. Ruled out small bowel obstruction, pancreatitis, gallbladder pathology, renal colic. Still cannot rule out pyelonephritis as it was a noncontrast study due to patient having more generalized abdominal pain and renal angle tenderness. Start on clear liquid diet. If continues to tolerate will start on regular diet in next 24 hours. Continue with home pain medications with [place] every 6 hours as needed. Morphine 2 mg 4 hours as needed. Aggressive bowel regimen with daily milk of mag, Colace twice daily. Protonix IV twice daily, Zofran as needed. (7) Urinary tract infection: Appreciate urine culture recently. Antibiotics as above will suffice. (8) Elevated alkaline phosphatase level: Plan Continue other chronic home medications. Full code. Son will be the DPOA. Switch to mechanical soft diet Protonix for PUD prophylaxis Full dose Eliquis will be sufficient for DVT prophylaxis. Plan for the day: Patient continues to maintain his saturations. Continue with incentive spirometry. Has received around 48 hours of IV heparin. Switch to full dose Eliquis 10 mg twice daily for 7 days followed by 5 mg twice daily. Oxygen supplementation keeping saturation over 88%. Continue with nebulization treatment. Switch from Solu-Medrol every 8 hourly to every 12 hourly. Will plan for further de-escalation in next 24 hours. Continue with aggressive bowel regimen. Continue with Protonix daily. Appreciate urine culture sensitivities. Urine culture growing E. coli. Concern for ESBL. For now we will switch from Zosyn to aztreonam. First day of appropriate antibiotic would be 02/19. DC [place] catheter. IV Lasix 20 mg one-time. Concern for diastolic acute on chronic decompensated heart failure. Patient tolerated clear liquid diet well. Switch to mechanical soft diet. Out of bed to chair. Continue with PT. Appreciate PT evaluation. Patient would benefit from home health with physical therapy. PDMP PDMP Reviewed: Last Reviewed 02/18/25 12:19 by Ruslan Van MD Attestations 2 Medical Necessity Statement*: Requires further hospitalization for management of acute hypoxic respiratory failure in setting of pulmonary embolism, cystitis, diastolic heart failure Diagnoses Sepsis A41.9 Acute hypoxic respiratory failure J96.01 Pulmonary embolism I26.99 Pneumonia J18.9 Laterality: right Lung location: lower lobe of lung Pneumonia type: due to unspecified organism Status post kyphoplasty Z98.890 Abdominal pain R10.9 Urinary tract infection N39.0 Elevated alkaline phosphatase level R74.8
[2025-02-19] MEDS: atorvastatin 40 mg Tablet PO (17:06)
[2025-02-19] MEDS: pantoprazole 40 mg SDV IVP (19:29)
[2025-02-19] MEDS: HYDROcodone-acetaminophen 5-325 mg Tablet 1 TAB PO (20:34)
[2025-02-20] VITALS (15 sets, daily range): BP systolic 122–165; BP diastolic 69–91; PULSE 59–96; RESP 16–24; TEMP 36.4–37.1; O2SAT 93–96
[2025-02-20] MEDS: ipratropium 0.5 mg/2.5 mL Neb INHALATION ×4 (03:02→20:23)
[2025-02-20] MEDS: levalbuterol 0.63 mg/3 mL Neb INHALATION ×4 (03:02→20:23)
[2025-02-20 05:22] LABS: Basophils % 0.1 %; Hematocrit 32.7 % (36-47); Lymphocytes # 1.7 10^3/uL (0.8-4.8); Lymphocytes % 13.8 %; Mean Corpuscular HGB Conc 31.8 g/dL (30-55); Mean Corpuscular Hemoglobin 29.7 pg (27-33); Mean Corpuscular Volume 93.4 fl (85-98); Monocytes # 1.2 10^3/uL (0.2-0.9); Monocytes % 10.1 %; Neutrophils % 75.5 %; Nucleated Red Blood Cells % 0 %; Platelet Count 277 10^3/cmm (157-399); Red Cell Distribution Width 13.6 % (12.1-15.1); White Blood Count 11.92 10^3/uL (3.29-11.43)
[2025-02-20] MEDS: methylPREDNISolone sod succ 40 mg/mL INJ IVP (05:36)
[2025-02-20] MEDS: citalopram 20 mg Tablet PO (05:36)
[2025-02-20] MEDS: ALPRAZolam 0.5 mg Tablet 0.25 MG PO (05:36)
[2025-02-20 05:48] LABS: Alanine Aminotransferase 9 U/L (0-33); Albumin Level 3.2 g/dL (3.5-5.2); Alkaline Phosphatase 92 U/L (35-105); Anion Gap 16.2 (5-19); Aspartate Amino Transferase 10 U/L (0-32); Blood Urea Nitrogen 19 mg/dL (8-23); Calcium 8.5 mg/dL (8.5-10.5); Carbon Dioxide 24 mmol/L (22-29); Chloride 102 mmol/L (98-107); Glomerular Filtration Rate 71.8 mL/min (90-130); Glucose 104 mg/dL (65-115); Magnesium 2.3 mg/dL (1.7-2.3); Osmolality Calculated 289 mOsm/kg (285-295); Phosphorus 2.7 mg/dL (2.5-4.5); Potassium 4.2 mmol/L (3.5-5.1); Sodium 138 mmol/L (136-145); Total Bilirubin 0.3 mg/dL (0.15-1.2); Total Protein 6.2 g/dL (6.6-8.7)
[2025-02-20] MEDS: budesonide 0.5 mg/2 mL Neb INHALATION ×2 (09:11→20:23)
[2025-02-20] MEDS: metoprolol tartrate 25 mg Tablet PO ×2 (09:40→17:05)
[2025-02-20] MEDS: folic acid 1 mg Tablet 3 MG PO (09:40)
[2025-02-20] MEDS: apixaban 5 mg Tablet 10 MG PO ×2 (09:40→20:40)
[2025-02-20] MEDS: aztreonam 1,000 MG in sodium chloride 0.9% (plus) 50 ML 100 MG IV (10:55)
[2025-02-20] MEDS: FUROsemide 10 mg/mL SDV 4mL 20 MG IVP (11:06)
--- NOTE | 2025-02-20 11:50 | P.PN_ITS ---
Vitals/I&O/Wt Last Vital Signs Temp 97.5 F L 02/20/25 11:38 Pulse 73 02/20/25 11:38 Resp 17 02/20/25 11:38 BP 122/69 02/20/25 11:38 Pulse Ox 96 02/20/25 11:38 O2 Del Method Nasal Cannula 02/20/25 11:38 O2 Flow Rate 2 02/20/25 09:20 02/19/25 02/20/25 02/20/25 22:59 06:59 14:59 Intake Total 240 / 1117.800 50 / 1167.800 410 / 410 Balance 240 / 1117.800 50 / 1167.800 410 / 410 Weight last 48 hrs Weight 100.743 kg Physical Exam 2 Const: COMMON NORMALS: no acute distress and patient oriented x3 Resp: COMMON NORMALS: normal respiratory effort, No retractions, No use of accessory muscles and clear to auscultation bilaterally AUSCULTATION: clear to auscultation bilaterally Cardio: COMMON NORMALS: regular rate, regular rhythm, S1 normal heart sound present and S2 normal heart sound present RATE: regular rate RHYTHM: r egular rhythm HEART SOUNDS: S1 normal heart sound present and S2 normal heart sound present GI: COMMON NORMALS: Normal to inspection, nondistended, normoactive bowel sounds present and non-tender Extremity: COMMON NORMALS: no pedal edema Neuro: COMMON NORMALS: patient oriented x3 Psych: COMMON NORMALS: mental status grossly normal Urinary Catheter Management: Benoit: Cath Placed During This Visit: no Reason for Continuing Indwelling Catheter: Other Data 02/20/25 04:51 02/20/25 04:51 Micro: Microbiology 02/17/25 14:23 Urine Culture - Final Urine,Clean Catch Escherichia coli A&P Assessment and plan (1) Sepsis: - Resolved - Secondary to complicated/multidrug-resistant UTI, pneumonia (2) Acute hypoxic respiratory failure: - Mostly combination of pulm embolism, COPD, pneumonia -Antibiotic therapies have been de-escalated - History of VATS for empyema (3) Pulmonary embolism: Echocardiogram shows an EF of 60% without concerns for regional wall motion normality or right-sided heart strain. Switch to Eliquis (4) Pneumonia: On IV antibiotics Qualifiers: Laterality: right Lung location: lower lobe of lung Pneumonia type: d ue to unspecified organism Qualified Code(s): J18.9 - Pneumonia, unspecified organism (5) Status post kyphoplasty: (6) Abdominal pain: (7) Urinary tract infection: - Will need 7 days of ertapenem 1 g IV every 24 hours, PICC line to be placed - Continue aztreonam here (8) Elevated alkaline phosphatase level: Plan Continue other chronic home medications. Full code. Son will be the DPOA. Switch to mechanical soft diet Protonix for PUD prophylaxis Full dose Eliquis will be sufficient for DVT prophylaxis. Plan for the day: -Continue IV antibiotics - 1 dose IV Lasix - PT OT - Plan on discharging tomorrow PDMP PDMP Reviewed: Not Reviewed Attestations 2 Medical Necessity Statement*: Patient requires hospitalization for UTI, pneumonia, CHF Diagnoses Sepsis A41.9 Acute hypoxic respiratory failure J96.01 Pulmonary embolism I26.99 Pneumonia J18.9 Laterality: right Lung location: lower lobe of lung Pneumonia type: due to unspecified organism Status post kyphoplasty Z98.890 Abdominal pain R10.9 Urinary tract infection N39.0 Elevated alkaline phosphatase level R74.8
--- NOTE | 2025-02-20 12:55 | PC.SOCIAL ---
IMM UPDATED IMM dated and initialed, copy placed in chart and copy given to patient
--- NOTE | 2025-02-20 14:37 | PICC.NOTE ---
Midline placed to right basilic vein. Referred to vascular access nurse for midline placement due to need for IV antibiotics x 2 weeks. Risks and benefits discussed and informed consent obtained from pt. Right arm assessed with right basilic vein measuring 3.8 mm, straight, and apparent best choice for placement. Using sterile technique and MST, right basilic vein accessed x 1 stick. Mid-arm circumference measured 10 cm from right AC 39 cm. Trimmed cath 10 cm with 0 cm external length noted. Line secured with stat-lock. Insertion site covered with Biopatch and TSM. Report given to bedside nurse, [facility].
[2025-02-20] MEDS: atorvastatin 40 mg Tablet PO (17:05)
[2025-02-20] MEDS: pantoprazole 40 mg SDV IVP (20:39)
[2025-02-20] MEDS: HYDROcodone-acetaminophen 5-325 mg Tablet 1 TAB PO (20:42)
[2025-02-21] VITALS (7 sets, daily range): BP systolic 121–125; BP diastolic 71–82; PULSE 66–79; RESP 16–18; TEMP 36.3–36.4; O2SAT 86–98
[2025-02-21] MEDS: aztreonam 1,000 MG in sodium chloride 0.9% (plus) 50 ML 100 MG IV ×2 (00:25→11:32)
[2025-02-21] MEDS: levalbuterol 0.63 mg/3 mL Neb INHALATION ×2 (02:40→07:45)
[2025-02-21] MEDS: ipratropium 0.5 mg/2.5 mL Neb INHALATION ×2 (02:40→07:45)
[2025-02-21] MEDS: ALPRAZolam 0.5 mg Tablet 0.25 MG PO (05:11)
[2025-02-21] MEDS: citalopram 20 mg Tablet PO (05:11)
[2025-02-21 05:59] LABS: Basophils % 0.1 %; Eosinophils % 0.5 %; Hematocrit 34.4 % (36-47); Lymphocytes # 2.6 10^3/uL (0.8-4.8); Lymphocytes % 34.5 %; Mean Corpuscular HGB Conc 31.4 g/dL (30-55); Mean Corpuscular Volume 92.5 fl (85-98); Mean Platelet Volume 10.1 fL (7.4-10.4); Monocytes # 1.1 10^3/uL (0.2-0.9); Monocytes % 14.3 %; Neutrophils # 3.77 10^3/uL (1.8-7.7); Neutrophils % 50.1 %; Nucleated Red Blood Cells % 0 %; Platelet Count 287 10^3/cmm (157-399); Red Blood Count 3.72 10^6/uL (3.85-5.65); Red Cell Distribution Width 13.4 % (12.1-15.1); White Blood Count 7.54 10^3/uL (3.29-11.43)
[2025-02-21 06:23] LABS: Alanine Aminotransferase 13 U/L (0-33); Albumin Level 3.2 g/dL (3.5-5.2); Alkaline Phosphatase 86 U/L (35-105); Anion Gap 11.8 (5-19); Aspartate Amino Transferase 11 U/L (0-32); Blood Urea Nitrogen 20 mg/dL (8-23); Calcium 8.7 mg/dL (8.5-10.5); Carbon Dioxide 28 mmol/L (22-29); Chloride 103 mmol/L (98-107); Creatinine Clr Calc Pharmacy 81.3694; Globulin 3.2 g/dL (1.3-4.6); Glomerular Filtration Rate 83.7 mL/min (90-130); Glucose 80 mg/dL (65-115); Magnesium 2.1 mg/dL (1.7-2.3); Osmolality Calculated 290 mOsm/kg (285-295); Phosphorus 3.3 mg/dL (2.5-4.5); Potassium 3.8 mmol/L (3.5-5.1); Sodium 139 mmol/L (136-145); Total Bilirubin 0.3 mg/dL (0.15-1.2); Total Protein 6.4 g/dL (6.6-8.7)
[2025-02-21] MEDS: budesonide 0.5 mg/2 mL Neb INHALATION (07:45)
[2025-02-21] MEDS: predniSONE 20 mg Tablet 40 MG PO (08:01)
[2025-02-21] MEDS: apixaban 5 mg Tablet 10 MG PO (08:02)
[2025-02-21] MEDS: folic acid 1 mg Tablet 3 MG PO (08:02)
[2025-02-21] MEDS: metoprolol tartrate 25 mg Tablet PO (08:02)
--- NOTE | 2025-02-21 11:31 | P.DS_ITS ---
Discharge Providers Date of Admission: 02/17/25 16:50 Date of Discharge: February 21, 2025 Attending Provider at Admission: Ruslan Van MD Attending Provider at Discharge: Sridhar Camejo MD Primary Care Provider: Cipriano Allred DO Diagnoses at Discharge Discharge Diagnosis (1) Sepsis: Status: Acute (2) Acute hypoxic respiratory failure: Status: Acute (3) Pulmonary embolism: Status: Acute (4) Pneumonia: Status: Acute Qualifiers: Laterality: right Lung location: lower lobe of lung Pneumonia type: due to unspecified organism Qualified Code(s): J18.9 - Pneumonia, unspecified organism (5) Status post kyphoplasty: Status: Acute (6) Abdominal pain: Status: Acute (7) Urinary tract infection: Status: Acute (8) Elevated alkaline phosphatase level: Status: Acute Reason for Visit Reason for Visit: chest pain Hospital Course Hospital Course This is a 64-year-old female with a past medical history of rheumatoid arthritis on immunosuppressant, pulm embolism, off anticoagulant therapy hyperlipidemia, pretension, anxiety, history of empyema, kyphoplasty who presents to [facility] due to shortness of breath, right-sided chest pain Patient was admitted to [facility] for sepsis secondary to UTI, pneumonia with acute hypoxic respiratory failure secondary to pulmonary embolism, COPD, pneumonia. Patient was monitored as inpatient, received an ticoagulant therapy, received broad-spectrum antibiotic therapy, overall clinically improved. For her pulmonary embolism she will be discharged on Eliquis with a close follow-up with primary care provider as outpatient, have her primary care provider recheck her hemoglobin in 1 week. For her acute hypoxic respiratory failure she will be discharged on oxygen therapy with close follow-up with primary care provider as outpatient. For her COPD, she will be discharged on a prednisone burst. For her history of rheumatoid arthritis, continue to hold immunosuppressive medications until she is completed antibiotic therapy. She was found to have a multidrug-resistant E. coli UTI, in addition to her pneumonia, she will be discharged on 7 days of ertapenem. Follow-up with pulmonary as outpatient Dr. Kulkarni, follow-up with urology as outpatient Dr. Bridges Physical Exam Const: COMMON NORMALS: no acute distress and patient oriented x3 Resp: COMMON NORMALS: normal respiratory effort, No retractions, No use of accessory muscles and clear to auscultation bilaterally AUSCULTATION: clear to auscultation bilaterally Cardio: COMMON NORMALS: regular rate, regular rhythm, S1 normal heart sound present and S2 normal heart sound present RATE: regular rate RHYTHM: regular rhythm HEART SOUNDS: S1 normal heart sound present and S2 normal heart sound present GI: COMMON NORMALS: Normal to inspection, nondistended, normoactive bowel sounds present and non-tender Extremity: COMMON NORMALS: no pedal edema Neuro: COMMON NORMALS: patient oriented x3 Psych: COMMON NORMALS: mental status grossly normal Urinary Catheter Management: Benoit: Cath Placed During This Visit: no Reason for Continuing Indwelling Catheter: Other Discharge Data Studies Completed and Pending Completed Studies During Hospitalization Category Date Time Status CT abdomen pelvis wo con [id number] Stat Cat Scan 02/17/25 16:11 Completed CTA chest [CT angio chest PE protcl [id number]] Stat Cat Scan 02/17/25 10:07 Completed XR chest 1V portable [id number] Routine Exams 02/17/25 17:03 Completed XR chest 1V portable [id number] Urgent Exams 02/17/25 09:16 [place] [id number] Routine Ultrasound 02/17/25 14:16 Completed CV. echo complete* [id number] Stat Ultrasound 02/17/25 13:37 Completed US liver [id number] Stat Ultrasound 02/17/25 17:04 Completed Pending at discharge Category Date Time Status Blood Culture Stat Lab 02/17/25 15:40 Results Complete Blood Count w/Auto AM LABS Lab 02/22/25 04:00 Ordered Complete Blood Count w/Auto AM LABS Lab 02/23/25 04:00 Ordered Comprehensive Metabolic Panel AM LABS Lab 02/22/25 04:00 Ordered Comprehensive Metabolic Panel AM LABS Lab 02/23/25 04:00 Ordered Magnesium AM LABS Lab 02/22/25 04:00 Ordered Magnesium AM LABS Lab 02/23/25 04:00 Ordered Phosphorus AM LABS Lab 02/22/25 04:00 Ordered Phosphorus AM LABS Lab 02/23/25 04:00 Ordered Sputum Culture and Gram Stain Stat Lab 02/17/25 18:07 Uncollected Radiology Impressions Chest CTA 02/17/25 10:07 IMPRESSION: 1. Segmental nonocclusive RIGHT lower lobe pulmonary emboli. 2. New area of consolidation in the lingula. Configuration suspect this is probably rounded atelectasis. As this is an area of dense consolidation recommend follow-up chest CT in 3 months. There are additional areas of subsegmental atelectasis at the LEFT lung base and in the RIGHT middle lobe. 3. Enlarged RIGHT hilar lymph node 1.8 cm was also enlarged on this study of 11/27/2023. No increase in size. 4. Small pericardial effusion. Venous Duplex 02/17/25 14:16 IMPRESSION: No evidence of deep vein thrombosis. Abdomen/Pelvis CT 02/17/25 16:11 IMPRESSION: 1. No acute intra-abdominal or pelvic process. 2. Moderate bibasilar atelectasis. COMMENTS: Consistent with the [employer]'s Incidental Findings Committee white paper (J Am Cortney Radiol 2018): Any incidental renal lesion less than 1 cm or classified as too small to characterize, or any incidental cystic renal lesion characterized as simple-appearing, is likely benign. No follow-up imaging is recommended for these lesions per consensus recommendations based on imaging criteria. Chest X-Ray 02/17/25 17:03 IMPRESSION: Left internal jugular venous catheter terminating in the region of the cavoatrial junction. Liver Ultrasound 02/17/25 17:04 IMPRESSION: Unremarkable duplex of the portal vein. IMPRESSION: Fatty liver. Laboratory Results WBC 7.54 10^3/uL (3.29-11.43) 02/21/25 05:11 RBC 3.72 10^6/uL (3.85-5.65) L 02/21/25 05:11 Hgb 10.80 g/dL (11.27-16.99) L 02/21/25 05:11 Hct 34.4 % (36-47) L 02/21/25 05:11 MCV 92.5 fl (85-98) 02/21/25 05:11 MCH 29.0 pg (27-33) 02/21/25 05:11 MCHC 31.4 g/dL (30-55) 02/21/25 05:11 RDW 13.4 % (12.1-15.1) 02/21/25 05:11 Plt Count 287 10^3/cmm (157-399) 02/21/25 05:11 MPV 10.1 fL (7.4-10.4) 02/21/25 05:11 Neut % (Auto) 50.1 % 02/21/25 05:11 Lymph % (Auto) 34.5 % 02/21/25 05:11 Hamilton % (Auto) 14.3 % 02/21/25 05:11 Eos % (Auto) 0.5 % 02/21/25 05:11 Baso % (Auto) 0.1 % 02/21/25 05:11 Neut # (Auto) 3.77 10^3/uL (1.8-7.7) 02/21/25 05:11 Lymph # (Auto) 2.6 10^3/uL (0.8-4.8) 02/21/25 05:11 Hamilton # (Auto) 1.1 10^3/uL (0.2-0.9) H 02/21/25 05:11 Eos # (Auto) 0.0 10^3/uL (0.0-0.8) 02/21/25 05:11 Baso # (Auto) 0.0 10^3/uL (0.0-0.1) 02/21/25 05:11 Nucleated RBC % (auto) 0 % 02/21/25 05:11 Nucleated RBCs # 0.0 /100WBC 02/21/25 05:11 APTT 58.9 SECONDS (23.9-36.7) H 02/19/25 10:18 D-Dimer 8.19 ug/mLFEU (0-0.59) H 02/17/25 09:37 Sodium 139 mmol/L (136-145) 02/21/25 05:11 Potassium 3.8 mmol/L (3.5-5.1) 02/21/25 05:11 Chloride 103 mmol/L (98-107) 02/21/25 05:11 Carbon Dioxide 28 mmol/L (22-29) 02/21/25 05:11 Anion Gap 11.8 (5-19) 02/21/25 05:11 BUN 20 mg/dL (8-23) 02/21/25 05:11 Creatinine 0.7 mg/dL (0.5-0.9) 02/21/25 05:11 GFR Calculation 83.7 mL/min (90-130) L 02/21/25 05:11 Glucose 80 mg/dL (65-115) 02/21/25 05:11 Estimat Average Glucose 126 02/17/25 09:37 Hemoglobin A1c 6.0 % (4.0-6.0) 02/17/25 09:37 Calculated Osmolality 290 mOsm/kg (285-295) 02/21/25 05:11 Lactic Acid 1.6 mmol/L (0.5-2.2) 02/17/25 15:40 Calcium 8.7 mg/dL (8.5-10.5) 02/21/25 05:11 Phosphorus 3.3 mg/dL (2.5-4.5) 02/21/25 05:11 Magnesium 2.1 mg/dL (1.7-2.3) 02/21/25 05:11 Iron 21 ug/dL (37-145) L 02/17/25 09:37 TIBC 355 mcg/dl 02/17/25 09:37 % Saturation 5.9 % (20-50) L 02/17/25 09:37 Unsat Iron Binding 334 ug/dL (112-347) 02/17/25 09:37 Total Bilirubin 0.3 mg/dL (0.15-1.2) 02/21/25 05:11 AST 11 U/L (0-32) 02/21/25 05:11 ALT 13 U/L (0-33) 02/21/25 05:11 Alkaline Phosphatase 86 U/L (35-105) 02/21/25 05:11 Troponin T Baseline 13 ng/L (0-10) H 02/17/25 09:37 Troponin T 120 Minute 13.92 ng/L (0-10) H 02/17/25 11:42 Delta Troponin T 0.92 ABS# (0-10) 02/17/25 11:42 Troponin T Hi Sens 6Hr 15.01 ng/L (0-10) H 02/17/25 15:40 Troponin T Hi Sens 6Hr Delta 2.01 ng/L (0-12) 02/17/25 15:40 NT-Pro-B Natriuret Pep 141 pg/mL (0-125) H 02/17/25 09:37 Total Protein 6.4 g/dL (6.6-8.7) L 02/21/25 05:11 Albumin 3.2 g/dL (3.5-5.2) L 02/21/25 05:11 Globulin 3.2 g/dL (1.3-4.6) 02/21/25 05:11 Triglycerides 57 mg/dL (0-150) 02/18/25 03:54 Cholesterol 124 mg/dL (0-200) 02/18/25 03:54 LDL Cholesterol, Calc 49 mg/dL (50-129) L 02/18/25 03:54 HDL Cholesterol 64 mg/dL (60-100) 02/18/25 03:54 LDL/HDL Ratio 0.77 RATIO (0.00-3.22) 02/18/25 03:54 Cholesterol/HDL Ratio 1.94 mg/dL (0.0-4.40) 02/18/25 03:54 Lipase 17 U/L (13-60) 02/17/25 09:37 Vitamin B12 439 pg/mL (232-1245) 02/17/25 09:37 Folate > 20.0 ng/mL (4.8-37.3) 02/18/25 03:54 Procalcitonin 0.21 ng/mL (0-0.5) 02/18/25 03:54 TSH 1.38 uIU/mL (0.27-4.20) 02/17/25 09:37 Urine Color Yellow (Yellow) 02/17/25 14:23 Urine Appearance Clear (CLEAR) 02/17/25 14:23 Urine pH 7.0 (5-7) 02/17/25 14:23 Ur Specific Reliance 1.060 (1.005-1.030) H 02/17/25 14:23 Urine Protein Negative (Negative) 02/17/25 14:23 Urine Glucose (UA) Negative (Normal) 02/17/25 14:23 Urine Ketones Negative (Negative) 02/17/25 14:23 Urine Blood Trace (Negative) A 02/17/25 14:23 Urine Nitrate Negative (Negative) 02/17/25 14:23 Urine Bilirubin Negative (Negative) 02/17/25 14:23 Urine Urobilinogen 0.2 mg/dL (Negative) 02/17/25 14:23 Ur Leukocyte Esterase 2+ (Negative) A 02/17/25 14:23 Urine RBC 11-20 /hpf (0-2) H 02/17/25 14:23 Urine WBC 51-100 /hpf (0-5) H 02/17/25 14:23 Ur Squamous Epith Cells 0-5 /hpf (0-5) 02/17/25 14:23 Amorphous Sediment Not Reportable 02/17/25 14:23 Urine Bacteria 2+ /hpf (NONE) H 02/17/25 14:23 Hyaline Casts 4.52 /lpf 02/17/25 14:23 Vancomycin Trough 25.5 ug/mL (10-15) H* 02/19/25 04:29 Adenovirus (PCR) Not detected (NOT DETECT) 02/17/25 20:38 C. pneumoniae DNA (PCR) Not detected (NOT DETECT) 02/17/25 20:38 Coronavirus 229E (PCR) Not detected (NOT DETECT) 02/17/25 20: Human Metapneumovir PCR Not detected (NOT DETECT) 02/17/25 20:38 Influenza A (H1) PCR Not detected (NOT DETECT) 02/17/25 20:38 Influ A (H1/09) PCR Not detected (NOT DETECT) 02/17/25 20:38 Influenza A (H3) PCR Not detected (NOT DETECT) 02/17/25 20:38 Influenza Type A (PCR) Not detected (NOT DETECT) 02/17/25 20:38 Influenza Type B (PCR) Not detected (NOT DETECT) 02/17/25 20:38 M. pneumoniae (PCR) Not detected (NOT DETECT) 02/17/25 20:38 Parainfluenza 1 (PCR) Not detected (NOT DETECT) 02/17/25 20:38 Parainfluenza 2 (PCR) Not detected (NOT DETECT) 02/17/25 20:38 Parainfluenza 3 (PCR) Not detected (NOT DETECT) 02/17/25 20:38 Parainfluenza 4 (PCR) Not detected (NOT DETECT) 02/17/25 20:38 RSV Type A (PCR) Not detected (NOT DETECT) 02/17/25 20:38 RSV Type B (PCR) Not detected (NOT DETECT) 02/17/25 20:38 Entero/Rhino (PCR) Not detected (NOT DETECT) 02/17/25 20:38 SARS-CoV-2 (PCR) Not detected (NOT DETECT) 02/17/25 20:38 Vitals Last Vital Signs Temp 97.4 F L 02/21/25 08:53 Pulse 79 02/21/25 08:53 Resp 17 02/21/25 08:53 BP 125/82 02/21/25 08:53 Pulse Ox 93 02/21/25 10:51 O2 Del Method Nasal Cannula 02/21/25 08:53 O2 Flow Rate 3 02/21/25 10:51 Discharge Plan Discharge Patient Disposition: Home Condition: Stable Prescriptions: New prednisone 20 mg Tablet 40 mg PO DAILY 3 Days Qty: 6 0RF Eliquis 5 mg Tablet See Rx Instructions .ROUTE .COMPLEX Qty: 74 0RF Rx Instructions: 10 mg(2tabs) twice daily for 7 days, then 5 mg(1 tab) twice daily thereafter ertapenem 1 gram recon soln 1 g IV DAILY 7 Days Qty: 7 0RF Continued alprazolam 0.25 mg tablet 0.25 mg PO QAM prednisone 5 mg tablet See Rx Instructions PO .COMPLEX PRN (Reason: joint pain flare) Qty: 30 1RF Rx Instructions: take 1-2 tabs daily for 3-7 days prn joint pain flare orally PRN; fluticasone propionate [Flonase Allergy Relief] 50 mcg/actuation spray,suspension 1 spray intranasal BID Qty: 16 0RF Rx Instructions: administer into each nostril folic acid 1 mg tablet 3 mg PO DAILY Qty: 90 5RF furosemide 20 mg tablet 20 mg PO .AM hydrocodone-acetaminophen 5-325 mg tablet 1 - 2 tab PO .Q4-6H Qty: 40 0RF multivitamin Tablet 1 tab PO DAILY atorvastatin 40 mg tablet 40 mg PO QPM calcium carbonate-vitamin D3 600 mg-5 mcg (200 unit) Tablet 1 tab PO DAILY citalopram 20 mg tablet 20 mg PO QAM ascorbic acid (vitamin C) [Vitamin C] 500 mg Tablet 500 mg PO DAILY cholecalciferol (vitamin D3) 50 mcg (2,000 unit) capsule 50 mcg PO DAILY metoprolol tartrate 25 mg tablet 25 mg PO BID prednisone 10 mg tablet See Rx Instructions .ROUTE .COMPLEX Rx Instructions: TAKE ONE TABLET BY MOUTH DAILY FOR 3-7 DAYS NEED FOR JOINT PAIN AND RA FLARE Held hydroxychloroquine 200 mg tablet 200 mg PO BID Qty: 180 1RF Hold Instructions: Resume on 03/07/25. until you see pmd Discontinued nitrofurantoin macrocrystal 100 mg capsule 100 mg PO Q12H 10 Days Qty: 20 0RF Rx Instructions: must administer with a meal/food Discharge Orders: Discharge Order (Routine); Ordered 02/21/25 Ordered By: Sridhar Camejo Other Ambulatory Orders: DME: Oxygen (Order) Location: None Selected Ordered By: Sridhar Camejo Referrals: Lorenzo Kulkarni [Occupational Therapist] - 2 weeks Cipriano Allred DO [Primary Care Provider] - 02/27/25 1:20 pm Discharge Diet: Regular Discharge Activity: Resume usual activity Patient Instructions: Opioid Safety Activity Restrictions/Additional Instructions: Ertapenem 1 g IV every 24 hours for 7 days CBC, CMP in 1 week Please continue to hold Plaquenil until you see your primary care provider Please follow-up with urology in [place] Please follow-up with pulmonary in [place] Discharge Attestations Time Spent in Discharge Care*: greater than 30 min Quality Metrics Clinical Quality Measures [ No reported AMI, CVA or VTE this stay] Coding Level of Care Code 01453 Total time (in minutes) for Discharge: 45 Diagnoses Sepsis A41.9 Acute hypoxic respiratory failure J96.01 Pulmonary embolism I26.99 Pneumonia J18.9 Laterality: right Lung location: lower lobe of lung Pneumonia type: due to unspecified organism Status post kyphoplasty Z98.890 Abdominal pain R10.9 Urinary tract infection N39.0 Elevated alkaline phosphatase level R74.8
== END 2025-02-21 13:40 | disposition home or self-care (01) | DRG 871 ==
LOC: ER 09:40 → ICU 16:51 → MEDSURG 02-18 16:43
PROVIDERS: Physician Assistant; Admitting Provider Student in an Organized Health Care Education/Training Program; Emergency Provider Emergency Medicine; PCP Electrodiagnostic Medicine; Visit Provider Family Medicine
DX: A41.9 Sepsis, unspecified organism (principal); I26.99 Other pulmonary embolism without acute cor pulmonale; J18.9 Pneumonia, unspecified organism; J96.01 Acute respiratory failure with hypoxia; D84.821 Immunodeficiency due to drugs; N39.0 Urinary tract infection, site not specified; Z16.24 Resistance to multiple antibiotics; J44.0 Chronic obstructive pulmonary disease with (acute) lower respiratory infection; M06.9 Rheumatoid arthritis, unspecified; E78.5 Hyperlipidemia, unspecified; F41.9 Anxiety disorder, unspecified; Z79.899 Other long term (current) drug therapy; Z79.51 Long term (current) use of inhaled steroids; Z86.711 Personal history of pulmonary embolism; Z98.890 Other specified postprocedural states; R10.9 Unspecified abdominal pain; R74.8 Abnormal levels of other serum enzymes; I11.0 Hypertensive heart disease with heart failure; B96.20 Unspecified Escherichia coli [E. coli] as the cause of diseases classified elsewhere
CPT/HCPCS: 36415; 36569; 36592; 71045; 71275; 74176; 76705; 80053; 80061; 80202; 81001; 82607; 82746; 83036; 83540; 83550; 83605; 83690; 83735; 83880; 84100; 84145; 84443; 84484; 85025; 85378; 85730; 87040; 87077; 87086; 87186; 87486; 87581; 87633; 93005; 93306; 93970; 94640; 94760; 96365; 96367; 96375; 96376; 97116; 97161; 97530; 99291; 99292; C1751; J1644; J1940; J2270; J2405; J2470; J2543; J2919; J3370; J3490; J7512; J7614; J7626; J7644; J9999

== ENCOUNTER 2025-02-25 10:24 | Emergency (ER) | payer MEDICARE, OTHER, SELFPAY ==
[2025-02-25 10:27] VITALS: BP 146/80; PULSE 79; RESP 22; TEMP 36.9; O2SAT 98
--- NOTE | 2025-02-25 10:40 | CTR_ITS ---
PROCEDURE INFORMATION: Exam: CT Abdomen And Pelvis With Contrast Exam date and time: 02/25/2025 12:07 PM Age: 64 years old Clinical indication: Abdominal pain; Localized; Right lower quadrant (rlq); Prior surgery; Surgery date: 6+ months; Surgery type: Hyster; Additional info: Rlq abd pain 08/11 TECHNIQUE: Imaging protocol: Computed tomography of the abdomen and pelvis with contrast. Radiation optimization: All CT scans at this facility use at least one of these dose optimization techniques: automated exposure control; mA and/or kV adjustment per patient size (includes targeted exams where dose is matched to clinical indication); or iterative reconstruction. Contrast material: OMNIPAQUE 350; Contrast volume: 100 ml; Contrast route: INTRA-ARTERIAL (ARTERIAL); COMPARISON: CT abdomen pelvis wo con [id number] 02/17/2025 6:39 PM RADIATION DOSE METRICS: Total DLP (mGy-cm): 984.08 FINDINGS: Lungs: Mild consolidation seen at both lung bases. Heart: Mild cardiomegaly with small pericardial effusion adjacent to the left ventricle posteriorly. Diaphragm: Small hiatal hernia. Liver: Normal. No mass. Gallbladder and biliary ducts: Normal. No calcified stones. No ductal dilation. Pancreas: Normal. No ductal dilation. Spleen: Normal. No splenomegaly. Adrenal glands: Normal. No mass. Kidneys and ureters: Normal. No hydronephrosis. Stomach and bowel: Slight prominence of the right colon without wall thickening. Diverticulosis of the sigmoid colon without diverticulitis. Small bowel unremarkable. Appendix: No evidence of appendicitis. Intraperitoneal space: Unremarkable. No free air. No significant fluid collection. Vasculature: Unremarkable. No abdominal aortic aneurysm. Lymph nodes: Unremarkable. No enlarged lymph nodes. Urinary bladder: Low-lying urinary bladder. Reproductive: Status post hysterectomy. Bones/joints: Mild scoliosis of the thoracolumbar spine. Generalized osteopenia with multiple compression fractures in the thoracic and lumbar spine including vertebral augmentation at the L1, L2, and L3 levels. No significant change. Soft tissues: Unremarkable. CT/CT abdomen pelvis w con* [id number] IMPRESSION: 1. Slight dilatation of the right colon which may represent mild colonic ileus. 2. Bibasilar consolidation/atelectasis. 3. Small hiatal hernia.
--- NOTE | 2025-02-25 10:55 | W.ED.ABDPA2 ---
HPI - Abdominal Pain General: Chief Complaint: Abdominal Pain Stated Complaint: abd & back pain, fever, chills Time Seen by Provider: 02/25/25 10:29 History of Present Illness: The patient reports severe abdominal pain, described as a 10 out of 10 on the pain scale, with the pain being present across the abdomen, predominantly on the right side but also affecting the left. The patient mentions having a history of an infection for which she was sent to the infusion center today to be treated with IV abx infusion. The patient was in the hospital last week with similar pain but is unsure of the details. The patient denies vomiting but feels unwell. There is also mention of back pain and the presence of hardware in the back. The patient has a PICC line in place for access. Related Data Home Medications ?Medication ?Instructions ?Recorded ?Confirmed alprazolam 0.25 mg tablet 0.25 mg PO QAM anxiety 06/28/20 02/25/25 ascorbic acid (vitamin C) 500 mg 500 mg PO DAILY 11/18/23 02/25/25 tablet (Vitamin C) atorvastatin 40 mg tablet 40 mg PO QPM 11/18/23 02/25/25 calcium 600 mg (as 1 tab PO DAILY 11/18/23 02/25/25 carbonate)-vitamin D3 5 mcg (200 unit) tablet cholecalciferol (vitamin D3) 50 50 mcg PO DAILY 11/18/23 02/25/25 mcg (2,000 unit) capsule citalopram 20 mg tablet 20 mg PO QAM 11/18/23 02/25/25 multivitamin 1 tab PO DAILY 11/18/23 02/25/25 metoprolol tartrate 25 mg tablet 25 mg PO BID 09/27/24 02/25/25 furosemide 20 mg tablet 20 mg PO .AM 02/13/25 02/25/25 prednisone 10 mg tablet See Rx Instructions .Route .COMPLEX 02/17/25 02/25/25 apixaban 5 mg (74 tabs) tablets in See Rx Instructions .Route .COMPLEX 02/25/25 02/25/25 a dose pack (Eliquis DVT-PE Treat 30D Start) prednisone 20 mg tablet 60 mg PO DAILY 02/25/25 02/25/25 Previous Rx's ?Medication ?Instructions ?Recorded fluticasone propionate 50 1 spray intranasal BID #16 grams 09/25/24 mcg/actuation nasal spray,suspension (Flonase Allergy Relief) folic acid 1 mg tablet 3 mg (3 x 1 mg) PO DAILY #90 tabs 11/24/24 hydroxychloroquine 200 mg tablet 200 mg PO BID #180 tabs 02/09/25 Held on 02/21/25. Instructions: Resume on 03/07/25. until you see pmd prednisone 5 mg tablet See Rx Instructions PO .COMPLEX 02/09/25 PRN joint pain flare #30 tabs hydrocodone 5 mg-acetaminophen 325 1 - 2 tab PO .Q4-6H #40 tabs 02/13/25 mg tablet apixaban 5 mg tablet (Eliquis) See Rx Instructions .Route 02/21/25 .COMPLEX #74 tabs ertapenem 1 gram solution for 1 g IV DAILY 7 days #7 ea 02/21/25 injection Allergies Allergy/AdvReac Type Severity Reaction Status Date / Time No Known Allergies Allergy Verified 02/10/25 09:45 PFS ED PFSH: Medical History (Updated 02/25/25 @ 13:02 by Michele Crouch MD) Right lower lobe pneumonia Pleural effusion, right COVID-19 vaccine administered Seropositive rheumatoid arthritis of multiple sites Osteoporosis 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 High risk medication use Immunization counseling Rheumatoid arthritis with rheumatoid factor Leg cramps Surgical History (Updated 02/22/25 @ 00:00 by DINA Ford) Status post kyphoplasty H/O video-assisted thoracoscopic surgery (VATS) History of hysterectomy Family History Other Arthritis Denies family history of Rheumatoid arthritis Lupus Social History Smoking and tobacco/nicotine status: former use of tobacco/nicotine Physical Exam Const: COMMON NORMALS: patient oriented x3 and alert GENERAL APPEARANCE: in distress HENMT: COMMON NORMALS: normocephalic and atraumatic HEAD & SCALP: normocephalic and atraumatic Eye: COMMON NORMALS: Equal, round and reactive pupils present, EOMs intact bilaterally and no scleral icterus PUPIL: Yes Equal, round and reactive pupils present Resp: COMMON NORMALS: normal respiratory effort and No retractions Cardio: COMMON NORMALS: regular rate, regular rhythm and No murmurs present (Cardio) RATE: regular rate RHYTHM: regular rhythm GI: COMMON NORMALS: Normal to inspection, nondistended, normoactive bowel sounds present and Soft to palpation PALPATION: Yes Soft to palpation OTHER: Negative Stewart sign, pain is not specifically worse over McBurney's point. Generally tender on the right side of the abdomen compared to the left. Neuro: COMMON NORMALS: patient oriented x3 SENSORIUM/ORIENTATION: Yes alert Skin: COMMON NORMALS: no rashes or lesions noted GENERAL SKIN EXAM: no rashes or lesions noted Course Vital Signs: Vital signs: Vital Signs Temperature 98.5 F 02/25/25 10:27 Pulse Rate 76 02/25/25 13:25 Respiratory Rate 18 02/25/25 11:00 Blood Pressure 134/77 02/25/25 13:25 Pulse Oximetry 91 02/25/25 13:25 Oxygen Delivery Me thod Room Air 02/25/25 10:27 MDM - Abdominal Pain Medical Decision Making In summary, patient is a generally well-appearing 64-year-old female seen for right sided abdominal pain which prompted her to visit the emergency department after showing up to the IV infusion clinic where she was post to get ertapenem for her UTI. CT scan was performed showing what could possibly be partial ileus of the right colon. This does correlate with where her pain was. She has been able to eat without nausea and both passed stool and flatus today thus I do not suspect ileus requiring NG tube placement and suction and hospitalization. Pain is much better after treatment. I do not suspect any other emergent process warranting further workup or hospitalization and she will be discharged in stable and improved condition to go back to the infusion clinic for her ertapenem. Lab Data 02/25/25 11:04 02/25/25 11:04 Labs/Radiology: Radiology Impressions Abdomen/Pelvis CT 02/25/25 10:40 IMPRESSION: 1. Slight dilatation of the right colon which may represent mild colonic ileus. 2. Bibasilar consolidation/atelectasis. 3. Small hiatal hernia. Laboratory Results WBC 15.29 10^3/uL (3.29-11.43) H 02/25/25 11:04 RBC 4.52 10^6/uL (3.85-5.65) 02/25/25 11:04 Hgb 13.20 g/dL (11.27-16.99) 02/25/25 11:04 Hct 43.4 % (36-47) 02/25/25 11:04 MCV 96.0 fl (85-98) 02/25/25 11:04 MCH 29.2 pg (27-33) 02/25/25 11:04 MCHC 30.4 g/dL (30-55) 02/25/25 11:04 RDW 13.9 % (12.1-15.1) 02/25/25 11:04 Plt Count 362 10^3/cmm (157-399) 02/25/25 11:04 MPV 9.8 fL (7.4-10.4) 02/25/25 11:04 Neut % (Auto) 54.9 % 02/25/25 11:04 Lymph % (Auto) 30.9 % 02/25/25 11:04 [place] % (Auto) 11.4 % 02/25/25 11:04 Eos % (Auto) 0.7 % 02/25/25 11:04 Baso % (Auto) 0.2 % 02/25/25 11:04 Neut # (Auto) 8.39 10^3/uL (1.8-7.7) H 02/25/25 11:04 Lymph # (Auto) 4.7 10^3/uL (0.8-4.8) 02/25/25 11:04 [place] # (Auto) 1.8 10^3/uL (0.2-0.9) H 02/25/25 11:04 Eos # (Auto) 0.1 10^3/uL (0.0-0.8) 02/25/25 11:04 Baso # (Auto) 0.0 10^3/uL (0.0-0.1) 02/25/25 11:04 Nucleated RBC % (auto) 0 % 02/25/25 11:04 Nucleated RBCs # 0.0 /100WBC 02/25/25 11:04 Sodium 139 mmol/L (136-145) 02/25/25 11:04 Potassium 4.0 mmol/L (3.5-5.1) 02/25/25 11:04 Chloride 101 mmol/L (98-107) 02/25/25 11:04 Carbon Dioxide 25 mmol/L (22-29) 02/25/25 11:04 Anion Gap 17.0 (5-19) 02/25/25 11:04 BUN 23 mg/dL (8-23) 02/25/25 11:04 Creatinine 0.8 mg/dL (0.5-0.9) 02/25/25 11:04 GFR Calculation 71.8 mL/min (90-130) L 02/25/25 11:04 Glucose 87 mg/dL (65-115) 02/25/25 11:04 Calculated Osmolality 291 mOsm/kg (285-295) 02/25/25 11:04 Lactic Acid 2.3 mmol/L (0.5-2.2) H 02/25/25 11:04 Calcium 9.4 mg/dL (8.5-10.5) 02/25/25 11:04 Total Bilirubin 0.4 mg/dL (0.15-1.2) 02/25/25 11:04 AST 16 U/L (0-32) 02/25/25 11:04 ALT 28 U/L (0-33) 02/25/25 11:04 Alkaline Phosphatase 116 U/L (35-105) H 02/25/25 11:04 Total Protein 7.6 g/dL (6.6-8.7) 02/25/25 11:04 Albumin 3.9 g/dL (3.5-5.2) 02/25/25 11:04 Globulin 3.7 g/dL (1.3-4.6) 02/25/25 11:04 Lipase 24 U/L (13-60) 02/25/25 11:04 Urine Color Yellow (Yellow) 02/25/25 11:39 Urine Appearance Cloudy (CLEAR) A 02/25/25 11:39 Urine pH 5.0 (5-7) 02/25/25 11:39 Ur Specific [place] 1.035 (1.005-1.030) H 02/25/25 11:39 Urine Protein 1+ (Negative) A 02/25/25 11:39 Urine Glucose (UA) Negative (Normal) 02/25/25 11:39 Urine Ketones Trace (Negative) 02/25/25 11:39 Urine Blood 2+ (Negative) A 02/25/25 11:39 Urine Nitrate Negative (Negative) 02/25/25 11:39 Urine Bilirubin Negative (Negative) 02/25/25 11:39 Urine Urobilinogen 1.0 mg/dL (Negative) 02/25/25 11:39 Ur Leukocyte Esterase 1+ (Negative) A 02/25/25 11:39 Urine RBC 11-20 /hpf (0-2) H 02/25/25 11:39 Urine WBC 21-50 /hpf (0-5) H 02/25/25 11:39 Ur Squamous Epith Cells 0-5 /hpf (0-5) 02/25/25 11:39 Calcium Oxalate Crystal 55-80 /hpf H 02/25/25 11:39 Amorphous Sediment Not Reportable 02/25/25 11:39 Urine Bacteria None seen /hpf (NONE) 02/25/25 11:39 Hyaline Casts 5.36 /lpf 02/25/25 11:39 All radiology interpretation(s) finalized by discharge Discharge Plan Discharge Patient Disposition: Home Clinical Impression: Abdominal pain Condition: Stable Prescriptions: No Action alprazolam 0.25 mg tablet 0.25 mg PO QAM prednisone 5 mg tablet See Rx Instructions PO .COMPLEX PRN (Reason: joint pain flare) Qty: 30 1RF Rx Instructions: take 1-2 tabs daily for 3-7 days prn joint pain flare orally PRN; hydroxychloroquine 200 mg tablet 200 mg PO BID Qty: 180 1RF fluticasone propionate [Flonase Allergy Relief] 50 mcg/actuation spray,suspension 1 spray intranasal BID Qty: 16 0RF Rx Instructions: administer into each nostril folic acid 1 mg tablet 3 mg PO DAILY Qty: 90 5RF furosemide 20 mg tablet 20 mg PO .AM hydrocodone-acetaminophen 5-325 mg tablet 1 - 2 tab PO .Q4-6H Qty: 40 0RF multivitamin Tablet 1 tab PO DAILY atorvastatin 40 mg tablet 40 mg PO QPM calcium carbonate-vitamin D3 600 mg-5 mcg (200 unit) Tablet 1 tab PO DAILY citalopram 20 mg tablet 20 mg PO QAM ascorbic acid (vitamin C) [Vitamin C] 500 mg Tablet 500 mg PO DAILY cholecalciferol (vitamin D3) 50 mcg (2,000 unit) capsule 50 mcg PO DAILY metoprolol tartrate 25 mg tablet 25 mg PO BID prednisone 10 mg tablet See Rx Instructions .ROUTE .COMPLEX Rx Instructions: TAKE ONE TABLET BY MOUTH DAILY FOR 3-7 DAYS NEED FOR JOINT PAIN AND RA FLARE Eliquis 5 mg Tablet See Rx Instructions .ROUTE .COMPLEX Qty: 74 0RF Rx Instructions: 10 mg(2tabs) twice daily for 7 days, then 5 mg(1 tab) twice daily thereafter ertapenem 1 gram recon soln 1 g IV DAILY 7 Days Qty: 7 0RF prednisone 20 mg tablet 60 mg PO DAILY Eliquis DVT-PE Treat 30D Start 5 mg (74 tabs) tablets,dose pack See Rx Instructions .ROUTE .COMPLEX Rx Instructions: TAKE BY MOUTH PER PACKAGE directions Discharge Orders: Discharge ED (Routine); Ordered 02/25/25 Ordered By: Michele Crouch Referrals: Cipriano Allred, [Primary Care Provider] - Discharge Diet: Advance as tolerated Discharge Activity: Increase activity as tolerated Patient Instructions: Abdominal Pain (ED) Activity Restrictions/Additional Instructions: CT scan today showed mild dilation of the right colon which appears to be causing her pain. This should subside without need for surgery or other intervention. Please return to the infusion clinic to get your antibiotics for your UTI. Print Language: Mongolian Coding Level of Care Code ED Radiotelephone Technical Operator for Analy Val[place]
[2025-02-25] MEDS: sodium chloride 0.9% 1,000 ML 999 ML IV (10:59)
[2025-02-25 11:00] VITALS: RESP 18; O2SAT 94
[2025-02-25] MEDS: ondansetron 2 mg/ML SDV 2 mL 4 MG IVP (11:00)
[2025-02-25] MEDS: morphine 4 mg/mL SDV 1 mL 8 MG IVP (11:00)
[2025-02-25 11:10] LABS: Basophils % 0.2 %; Eosinophils # 0.1 10^3/uL (0.0-0.8); Eosinophils % 0.7 %; Hematocrit 43.4 % (36-47); Lymphocytes # 4.7 10^3/uL (0.8-4.8); Lymphocytes % 30.9 %; Mean Corpuscular HGB Conc 30.4 g/dL (30-55); Mean Corpuscular Hemoglobin 29.2 pg (27-33); Mean Platelet Volume 9.8 fL (7.4-10.4); Monocytes # 1.8 10^3/uL (0.2-0.9); Monocytes % 11.4 %; Neutrophils # 8.39 10^3/uL (1.8-7.7); Neutrophils % 54.9 %; Nucleated Red Blood Cells % 0 %; Platelet Count 362 10^3/cmm (157-399); Red Blood Count 4.52 10^6/uL (3.85-5.65); Red Cell Distribution Width 13.9 % (12.1-15.1); White Blood Count 15.29 10^3/uL (3.29-11.43)
[2025-02-25 11:27] LABS: Alanine Aminotransferase 28 U/L (0-33); Albumin Level 3.9 g/dL (3.5-5.2); Alkaline Phosphatase 116 U/L (35-105); Aspartate Amino Transferase 16 U/L (0-32); Blood Urea Nitrogen 23 mg/dL (8-23); Calcium 9.4 mg/dL (8.5-10.5); Carbon Dioxide 25 mmol/L (22-29); Chloride 101 mmol/L (98-107); Creatinine Clr Calc Pharmacy 80.1433; Globulin 3.7 g/dL (1.3-4.6); Glomerular Filtration Rate 71.8 mL/min (90-130); Glucose 87 mg/dL (65-115); Lipase 24 U/L (13-60); Osmolality Calculated 291 mOsm/kg (285-295); Sodium 139 mmol/L (136-145); Total Bilirubin 0.4 mg/dL (0.15-1.2); Total Protein 7.6 g/dL (6.6-8.7)
[2025-02-25 11:28] LABS: Lactic Sepsis W/Reflex 2.3 mmol/L (0.5-2.2)
[2025-02-25 11:56] LABS: Bilirubin Urine Negative (Negative); Blood Urine 2+ (Negative); Glucose Urine UA Negative (Normal); Ketones Urine Trace (Negative); Leukocyte Esterase Urine 1+ (Negative); Nitrate Urine Negative (Negative); Protein Urine 1+ (Negative); Urine Appearance Cloudy (CLEAR); Urine Color Yellow (Yellow)
[2025-02-25 12:01] LABS: Bacteria Urine None Seen /hpf; Hyaline Casts Urine 5.36 /lpf; Squamous Epithelial Cell Urine 0-5 /hpf (0-5); WBC Urine 21-50 /hpf (0-5)
[2025-02-25 12:10] LABS: Specific Gravity, Urine 1.035 (1.005-1.030)
[2025-02-25 12:11] LABS: UA Slide Review UA Slide Review Perf
[2025-02-25 12:12] LABS: Add Urine Culture? Yes; Calcium Oxalate Crystals Urine 55-80 /hpf
[2025-02-25] MEDS: iohexol 350 mg/mL 500 mL Btl (per mL) IV (12:12)
[2025-02-25 12:55] LABS: Reflex Lactate Order REFLEX LACTIC ORDERD
[2025-02-25 13:25] VITALS: BP 134/77; PULSE 76; O2SAT 91
== END 2025-02-25 13:26 | disposition home or self-care (01) ==
PROVIDERS: Emergency Provider Student in an Organized Health Care Education/Training Program; PCP Electrodiagnostic Medicine
DX: R10.9 Unspecified abdominal pain (principal); Z79.01 Long term (current) use of anticoagulants; Z87.891 Personal history of nicotine dependence
CPT/HCPCS: 36415; 74177; 80053; 81001; 83605; 83690; 85025; 87086; 87106; 96374; 96375; 99285; J2270; J2405; J7030

== ENCOUNTER 2025-02-27 09:30 | Oncology outpatient (recurring) (ONCR) | payer MEDICARE, OTHER, SELFPAY ==
[2025-02-22] MEDS: ertapenem 1,000 mg SDV 1000 MG IVP (08:40)
[2025-02-23] MEDS: ertapenem 1,000 mg SDV 1000 MG IVP (09:40)
[2025-02-23 09:50] VITALS: BP 158/88; PULSE 94; RESP 18; TEMP 36.6; O2SAT 94
[2025-02-24 09:20] VITALS: BP 125/80; PULSE 86; RESP 20; TEMP 36.6; O2SAT 98
[2025-02-24] MEDS: ertapenem 1,000 mg SDV 1000 MG IVP (09:35)
[2025-02-25 14:20] VITALS: BP 96/78; PULSE 90; RESP 18; TEMP 36.1; O2SAT 100
[2025-02-25 14:25] VITALS: BP 112/71
[2025-02-25] MEDS: ertapenem 1,000 mg SDV 1000 MG IVP (14:30)
--- NOTE | 2025-02-25 14:53 | PC.NURSE ---
Late Entry- 10:15 Pt arrived to outpatient surgery for scheduled infusion, pt ambulated to room via walker and oxygen, pt attempted to sit on bed, was tearful complaining of abd pain, back pain, and that she was retaining fluid in her abd and legs, stating she took a pain pill this morning and it was not working, pt was unable to sit on bed without being tearful and increased respirations discussed with pt and daughter who was at bedside if pt wanted to go to the ER if she was in the amount of pain she was stating, pt and daughter stated that was the best option at this time. Took patient to ER via wheelchair and was with pt while she checked in to ER with daughter at pt side. Wheeled pt to ER room and gave bedside report to nurse. Let nurse know pt was here for ops infusion and we did not do infusion due to condition and pain. 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 Called Dr. Camejo regarding infusion being given late at 1430 and asked if we needed to adjust further dose time for tomorrow morning, Dr confirmed dose was okay to be given at 10:00 and go back to original schedule. Pt given infusion via right picc line. pt with noted bruising around PICC line site, PICC line flushes without difficulty, with good blood return noted. Pt has a white piece of coban wrapped around PICC line, nurse removed from right arm.
[2025-02-26] MEDS: ertapenem 1,000 mg SDV 1000 MG IVP (10:01)
[2025-02-26 10:12] VITALS: BP 151/66; PULSE 91; RESP 20; TEMP 36.4; O2SAT 93
[2025-02-27] MEDS: ertapenem 1,000 mg SDV 1000 MG IVP (09:41)
[2025-02-27 10:13] LABS: Basophils % 0.1 %; Eosinophils # 0.2 10^3/uL (0.0-0.8); Eosinophils % 1.8 %; Hematocrit 35.4 % (36-47); Lymphocytes # 2.3 10^3/uL (0.8-4.8); Lymphocytes % 21.7 %; Mean Corpuscular HGB Conc 31.6 g/dL (30-55); Mean Corpuscular Hemoglobin 30.1 pg (27-33); Mean Corpuscular Volume 95.2 fl (85-98); Mean Platelet Volume 9.7 fL (7.4-10.4); Monocytes # 1.1 10^3/uL (0.2-0.9); Monocytes % 10.8 %; Neutrophils # 6.71 10^3/uL (1.8-7.7); Neutrophils % 64.6 %; Nucleated Red Blood Cells % 0 %; Platelet Count 330 10^3/cmm (157-399); Red Blood Count 3.72 10^6/uL (3.85-5.65); Red Cell Distribution Width 13.9 % (12.1-15.1); White Blood Count 10.38 10^3/uL (3.29-11.43)
[2025-02-27 10:33] LABS: Anion Gap 14.4 (5-19); Blood Urea Nitrogen 20 mg/dL (8-23); Carbon Dioxide 28 mmol/L (22-29); Chloride 102 mmol/L (98-107); Glomerular Filtration Rate 71.8 mL/min (90-130); Glucose 99 mg/dL (65-115); Osmolality Calculated 293 mOsm/kg (285-295); Potassium 4.4 mmol/L (3.5-5.1); Sodium 140 mmol/L (136-145)
== END 2025-03-01 23:59 | disposition home or self-care (01) ==
PROVIDERS: Student in an Organized Health Care Education/Training Program; PCP Electrodiagnostic Medicine; Visit Provider Family Medicine
DX: Z53.8 Procedure and treatment not carried out for other reasons (principal); N39.0 Urinary tract infection, site not specified; Z79.899 Other long term (current) drug therapy
CPT/HCPCS: 80048; 85025; 96374; J1335

== ENCOUNTER → 2025-02-28 08:21 | Outpatient (BNVA) | payer MEDICARE, OTHER, SELFPAY | PROVIDERS: PCP Electrodiagnostic Medicine; Visit Provider Orthopaedic Surgery | DX: Z98.890 Other specified postprocedural states (principal) | CPT/HCPCS: 99024 ==

== ENCOUNTER 2025-03-03 07:55 | Emergency (ER) | payer MEDICARE, SELFPAY ==
[2025-03-03 08:03] VITALS: BP 143/81; PULSE 89; RESP 16; TEMP 36.2; O2SAT 98
--- NOTE | 2025-03-03 08:07 | XR_ITS ---
WS: [id number] Portable AP upright chest, 03/03/2025 Clinical Data: chf Comparison: Two-view chest, 02/27/2025 Findings: The patchy opacity at the left lung base remains the same. There is minimal patchy opacity overlying the right diaphragm. No nodules, masses or effusions are seen. The heart is normal. The pulmonary vascularity is not increased. No pneumothorax is seen. XR/XR chest 1V portable [id number] Impression: No change in basilar patchy opacities which could represent atelectasis and/or minimal pneumonia.
--- NOTE | 2025-03-03 08:07 | CT_ITS ---
WS: [id number] CT scan of the abdomen and pelvis with IV contrast. Additional two-dimensional coronal and sagittal reconstruction was performed. 03/03/2025 Clinical Data: abd pain Comparison: None. DLP: 977.[address] scans at [facility] use at least one of these dose optimization techniques: automated exposure control; mA and/or kV adjustment per patient size (includes targeted exams where dose is matched to clinical indication); or iterative reconstruction. Findings: The lower lungs show no nodules, masses or effusions. There is a small left pericardial effusion. The heart is enlarged and there is a small hiatal hernia. The liver, gallbladder, spleen, adrenal glands and pancreas are normal. The kidneys show equal bilateral contrast excretion with no cyst or masses. There is no hydronephrosis or renal calculi. The abdominal aorta is normal in size. No appendicitis or diverticulitis is seen. The stomach, small bowel and colon show no abnormalities. The bladder is unremarkable. The uterus is absent. No inguinal hernia is seen. The lumbar spine show osteoarthritis and compression fractures. There is vertebroplasty cement in L1, L2 and L3. There is a dextroscoliosis of the lumbar spine. CT/CT abdomen pelvis w con* [id number] Impression: Negative for acute abdominal pelvic abnormalities.
--- NOTE | 2025-03-03 08:09 | W.ED.ABDPA2 ---
HPI - Abdominal Pain General: Chief Complaint: Abdominal Pain Stated Complaint: abdominal sweling Time Seen by Provider: 03/03/25 07:58 Source: patient Mode of arrival: ambulatory Limitations: no limitations History of Present Illness: 64-year-old female states that over the last 4 to 5 days she has had increased swelling states she has been swelling to her lower extremity along with swelling in her abdomen. Having some mild abdominal pain but states she mainly concerned that she feels her abdomen is swollen. Recently admitted a few weeks ago for pneumonia and pulm embolism. She denies any shortness of breath she wears 3 L at baseline denies chest pain Associated Symptoms: Denies chills, diarrhea, fever(s), nausea and vomiting Related Data Home Medications ?Medication ?Instructions ?Recorded ?Confirmed alprazolam 0.25 mg tablet 0.25 mg PO QAM anxiety 06/28/20 02/28/25 ascorbic acid (vitamin C) 500 mg 500 mg PO DAILY 11/18/23 02/28/25 tablet (Vitamin C) atorvastatin 40 mg tablet 40 mg PO QPM 11/18/23 02/28/25 calcium 600 mg (as 1 tab PO DAILY 11/18/23 02/28/25 carbonate)-vitamin D3 5 mcg (200 unit) tablet cholecalciferol (vitamin D3) 50 50 mcg PO DAILY 11/18/23 02/28/25 mcg (2,000 unit) capsule citalopram 20 mg tablet 20 mg PO QAM 11/18/23 02/28/25 multivitamin 1 tab PO DAILY 11/18/23 02/28/25 metoprolol tartrate 25 mg tablet 25 mg PO BID 09/27/24 02/28/25 furosemide 20 mg tablet 20 mg PO .AM 02/13/25 02/28/25 apixaban 5 mg (74 tabs) tablets in See Rx Instructions .Route .COMPLEX 02/25/25 02/28/25 a dose pack (EliquTriviala DVT-PE Treat 30D Start) prednisone 20 mg tablet 60 mg PO DAILY 02/25/25 02/28/25 Previous Rx's ?Medication ?Instructions ?Recorded fluticasone propionate 50 1 spray intranasal BID #16 grams 09/25/24 mcg/actuation nasal spray,suspension (Flonase Allergy Relief) folic acid 1 mg tablet 3 mg (3 x 1 mg) PO DAILY #90 tabs 11/24/24 hydroxychloroquine 200 mg tablet 200 mg PO BID #180 tabs 02/09/25 Held on 02/21/25. Instructions: Resume on 03/07/25. until you see pmd hydrocodone 5 mg-acetaminophen 325 1 - 2 tab PO .Q4-6H #40 tabs 02/13/25 mg tablet apixaban 5 mg tablet (Eliquis) See Rx Instructions .Route 02/21/25 .COMPLEX #74 tabs prednisone 5 mg tablet See Rx Instructions PO .COMPLEX 03/01/25 PRN joint pain flare #30 tabs Allergies Allergy/AdvReac Type Severity Reaction Status Date / Time No Known Allergies Allergy Verified 02/10/25 09:45 Review of Systems Const: Denies: fever(s), chills, body aches or change in appetite ENMT: Denies: throat pain or dental pain Card: Denies: chest pain Resp: Denies: dyspnea GI: Reports: abdominal pain; Denies: nausea, vomiting or diarrhea Musc: Reports: extremity swelling; Denies: neck pain or back pain Skin/Breast: Denies: rash Neuro: Denies: headache(s) PFS ED PFSH: Medical History Right lower lobe pneumonia Pleural effusion, right COVID-19 vaccine administered Seropositive rheumatoid arthritis of multiple sites Osteoporosis 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 High risk medication use Immunization counseling Rheumatoid arthritis with rheumatoid factor Leg cramps Surgical History Status post kyphoplasty H/O video-assisted thoracoscopic surgery (VATS) History of hysterectomy Family History Other Arthritis Denies family history of Rheumatoid arthritis Lupus Social History Smoking and tobacco/nicotine status: former use of tobacco/nicotine Physical Exam Const: COMMON NORMALS: no acute distress, patient oriented x3 and healthy appearing HENMT: COMMON NORMALS: normocephalic and atraumatic HEAD & SCALP: normocephalic and atraumatic Eye: COMMON NORMALS: conjunctivae normal CONJUNCTIVA: Yes conjunctivae normal Neck/C-Spine: COMMON NORMALS: full ROM and supple Chest: COMMONS NORMALS: normal inspection of the chest Resp: COMMON NORMALS: normal respiratory effort, No retractions, No use of accessory muscles and clear to auscultation bilaterally AUSCULTATION: clear to auscultation bilaterally Cardio: COMMON NORMALS: regular rate, regular rhythm and No murmurs present (Cardio) RATE: regular rate RHYTHM: regular rhythm GI: COMMON NORMALS: Normal to inspection, nondistended, normoactive bowel sounds present, Soft to palpation, non-tender and no masses PALPATION: Yes Soft to palpation Extremity: COMMON NORMALS: full ROM NARRATIVE EXTREMITY EXAM: 2+ edema le Neuro: COMMON NORMALS: patient oriented x3, moves all extremities and no focal motor deficits Psych: COMMON NORMALS: mental status grossly normal, Normal thought process present and cooperative THOUGHT PROCESS: Normal thought process present Skin: COMMON NORMALS: no rashes or lesions noted and no wounds GENERAL SKIN EXAM: no rashes or lesions noted Course Vital Signs: Vital signs: Vital Signs Temperature 97.1 F L 03/03/25 08:03 Pulse Rate 92 03/03/25 09:10 Respiratory Rate 16 03/03/25 08:03 Blood Pressure 143/88 03/03/25 09:10 Pulse Oximetry 94 03/03/25 09:10 Oxygen Delivery Me thod Nasal Cannula 03/03/25 08:03 Oxygen Flow Rate 3 03/03/25 08:03 MDM - Abdominal Pain Medical Decision Making Patient presents here with abdominal swelling her exam here is benign CT scan blood work here is normal did give her a dose of Lasix here she is to continue her home meds follow-up with PCP return if worsening she understands agrees to plan Medical Records I reviewed the patient's medical records. Lab Data I reviewed the patient's lab results. 03/03/25 08:16 03/03/25 08:16 Labs/Radiology: Radiology Impressions Abdomen/Pelvis CT 03/03/25 08:07 Impression: Negative for acute abdominal pelvic abnormalities. Chest X-Ray 03/03/25 08:07 Impression: No change in basilar patchy opacities which could represent atelectasis and/or minimal pneumonia. Laboratory Results WBC 13.36 10^3/uL (3.29-11.43) H 03/03/25 08:16 RBC 3.75 10^6/uL (3.85-5.65) L 03/03/25 08:16 Hgb 11.00 g/dL (11.27-16.99) L 03/03/25 08:16 Hct 35.7 % (36-47) L 03/03/25 08:16 MCV 95.2 fl (85-98) 03/03/25 08:16 MCH 29.3 pg (27-33) 03/03/25 08:16 MCHC 30.8 g/dL (30-55) 03/03/25 08:16 RDW 14.1 % (12.1-15.1) 03/03/25 08:16 Plt Count 348 10^3/cmm (157-399) 03/03/25 08:16 MPV 9.6 fL (7.4-10.4) 03/03/25 08:16 Neut % (Auto) 59.2 % 03/03/25 08:16 Lymph % (Auto) 28.0 % 03/03/25 08:16 [place] % (Auto) 9.5 % 03/03/25 08:16 Eos % (Auto) 2.0 % 03/03/25 08:16 Baso % (Auto) 0.4 % 03/03/25 08:16 Neut # (Auto) 7.91 10^3/uL (1.8-7.7) H 03/03/25 08:16 Lymph # (Auto) 3.7 10^3/uL (0.8-4.8) 03/03/25 08:16 [place] # (Auto) 1.3 10^3/uL (0.2-0.9) H 03/03/25 08:16 Eos # (Auto) 0.3 10^3/uL (0.0-0.8) 03/03/25 08:16 Baso # (Auto) 0.1 10^3/uL (0.0-0.1) 03/03/25 08:16 Nucleated RBC % (auto) 0 % 03/03/25 08:16 Nucleated RBCs # 0.0 /100WBC 03/03/25 08:16 Sodium 143 mmol/L (136-145) 03/03/25 08:16 Potassium 3.9 mmol/L (3.5-5.1) 03/03/25 08:16 Chloride 103 mmol/L (98-107) 03/03/25 08:16 Carbon Dioxide 30 mmol/L (22-29) H 03/03/25 08:16 Anion Gap 13.9 (5-19) 03/03/25 08:16 BUN 24 mg/dL (8-23) H 03/03/25 08:16 Creatinine 0.8 mg/dL (0.5-0.9) 03/03/25 08:16 GFR Calculation 71.8 mL/min (90-130) L 03/03/25 08:16 Glucose 97 mg/dL (65-115) 03/03/25 08:16 Calculated Osmolality 300 mOsm/kg (285-295) H 03/03/25 08:16 Calcium 9.2 mg/dL (8.5-10.5) 03/03/25 08:16 Total Bilirubin 0.2 mg/dL (0.15-1.2) 03/03/25 08:16 AST 18 U/L (0-32) 03/03/25 08:16 ALT 26 U/L (0-33) 03/03/25 08:16 Alkaline Phosphatase 146 U/L (35-105) H 03/03/25 08:16 NT-Pro-B Natriuret Pep 239 pg/mL (0-125) H 03/03/25 08:16 Total Protein 7.2 g/dL (6.6-8.7) 03/03/25 08:16 Albumin 3.7 g/dL (3.5-5.2) 03/03/25 08:16 Globulin 3.5 g/dL (1.3-4.6) 03/03/25 08:16 Lipase 38 U/L (13-60) 03/03/25 08:16 All radiology interpretation(s) finalized by discharge Discharge Plan Discharge Patient Disposition: Home Clinical Impression: Abdominal swelling Condition: Stable Prescriptions: No Action alprazolam 0.25 mg tablet 0.25 mg PO QAM hydroxychloroquine 200 mg tablet 200 mg PO BID Qty: 180 1RF fluticasone propionate [Flonase Allergy Relief] 50 mcg/actuation spray,suspension 1 spray intranasal BID Qty: 16 0RF Rx Instructions: administer into each nostril folic acid 1 mg tablet 3 mg PO DAILY Qty: 90 5RF prednisone 5 mg tablet See Rx Instructions PO .COMPLEX PRN (Reason: joint pain flare) Qty: 30 1RF Rx Instructions: take 1-2 tabs daily for 3-7 days prn joint pain flare orally PRN; furosemide 20 mg tablet 20 mg PO .AM hydrocodone-acetaminophen 5-325 mg tablet 1 - 2 tab PO .Q4-6H Qty: 40 0RF multivitamin Tablet 1 tab PO DAILY atorvastatin 40 mg tablet 40 mg PO QPM calcium carbonate-vitamin D3 600 mg-5 mcg (200 unit) Tablet 1 tab PO DAILY citalopram 20 mg tablet 20 mg PO QAM ascorbic acid (vitamin C) [Vitamin C] 500 mg Tablet 500 mg PO DAILY cholecalciferol (vitamin D3) 50 mcg (2,000 unit) capsule 50 mcg PO DAILY metoprolol tartrate 25 mg tablet 25 mg PO BID Eliquis 5 mg Tablet See Rx Instructions .ROUTE .COMPLEX Qty: 74 0RF Rx Instructions: 10 mg(2tabs) twice daily for 7 days, then 5 mg(1 tab) twice daily thereafter prednisone 20 mg tablet 60 mg PO DAILY Eliquis DVT-PE Treat 30D Start 5 mg (74 tabs) tablets,dose pack See Rx Instructions .ROUTE .COMPLEX Rx Instructions: TAKE BY MOUTH PER PACKAGE directions Discharge Orders: Discharge ED (Routine); Ordered 03/03/25 Ordered By: Kyler Adam Referrals: Cipriano Allred DO [Primary Care Provider, [facility]] Discharge Diet: Advance as tolerated Discharge Activity: Resume usual activity Patient Instructions: Edema (ED) Print Language: Maori Coding Level of Care Code ED Printer Floor Covering Assistant for Analy Valdez
[2025-03-03] MEDS: iohexol 350 mg/mL 500 mL Btl (per mL) IV (08:31)
[2025-03-03 08:32] LABS: Basophils # 0.1 10^3/uL (0.0-0.1); Basophils % 0.4 %; Eosinophils # 0.3 10^3/uL (0.0-0.8); Hematocrit 35.7 % (36-47); Lymphocytes # 3.7 10^3/uL (0.8-4.8); Mean Corpuscular HGB Conc 30.8 g/dL (30-55); Mean Corpuscular Hemoglobin 29.3 pg (27-33); Mean Corpuscular Volume 95.2 fl (85-98); Mean Platelet Volume 9.6 fL (7.4-10.4); Monocytes # 1.3 10^3/uL (0.2-0.9); Monocytes % 9.5 %; Neutrophils # 7.91 10^3/uL (1.8-7.7); Neutrophils % 59.2 %; Nucleated Red Blood Cells % 0 %; Platelet Count 348 10^3/cmm (157-399); Red Blood Count 3.75 10^6/uL (3.85-5.65); Red Cell Distribution Width 14.1 % (12.1-15.1); White Blood Count 13.36 10^3/uL (3.29-11.43)
[2025-03-03] MEDS: FUROsemide 10 mg/mL SDV 10mL 80 MG IVP (08:51)
[2025-03-03 08:59] LABS: Alanine Aminotransferase 26 U/L (0-33); Albumin Level 3.7 g/dL (3.5-5.2); Alkaline Phosphatase 146 U/L (35-105); Anion Gap 13.9 (5-19); Aspartate Amino Transferase 18 U/L (0-32); Blood Urea Nitrogen 24 mg/dL (8-23); Calcium 9.2 mg/dL (8.5-10.5); Carbon Dioxide 30 mmol/L (22-29); Chloride 103 mmol/L (98-107); Creatinine Clr Calc Pharmacy 0.2184; Globulin 3.5 g/dL (1.3-4.6); Glomerular Filtration Rate 71.8 mL/min (90-130); Glucose 97 mg/dL (65-115); Lipase 38 U/L (13-60); NT Pro B Type Natriuretic Pept 239 pg/mL (0-125); Osmolality Calculated 300 mOsm/kg (285-295); Potassium 3.9 mmol/L (3.5-5.1); Sodium 143 mmol/L (136-145); Total Bilirubin 0.2 mg/dL (0.15-1.2); Total Protein 7.2 g/dL (6.6-8.7)
[2025-03-03 09:10] VITALS: BP 143/88; PULSE 92; O2SAT 94
[2025-03-03 09:18] LABS: INR 0.96 (0.8-1.2)
[2025-03-03] MEDS: HYDROcodone-acetaminophen 7.5-325 mg Tablet 1 TAB PO (09:25)
== END 2025-03-03 09:27 | disposition home or self-care (01) ==
PROVIDERS: Emergency Provider Emergency Medicine; PCP Electrodiagnostic Medicine
DX: R19.00 Intra-abdominal and pelvic swelling, mass and lump, unspecified site (principal); Z79.01 Long term (current) use of anticoagulants; Z87.891 Personal history of nicotine dependence
CPT/HCPCS: 71045; 74177; 80053; 83690; 83880; 85025; 85610; 96374; 99285; J1938; J9999

== ENCOUNTER 2025-03-28 10:20 | Emergency (ER) | payer MEDICARE, SELFPAY ==
[2025-03-28 10:43] VITALS: BP 152/96; PULSE 118; RESP 16; TEMP 36.8; O2SAT 96; BMI 32.3
--- NOTE | 2025-03-28 10:50 | XR_ITS ---
WS: [id number] PORTABLE CHEST HISTORY: weakness COMPARISON: 03/03/2025 Poor inspiratory effort. Lung volumes are decreased. Subsegmental bibasilar areas of atelectasis, LEFT greater than RIGHT. No pneumonia. No pleural effusion or pneumothorax. Cardiac size: Normal. Mediastinum/Aorta: Normal mediastinum. No osseous abnormality seen. XR/XR chest 1V portable [id number] IMPRESSION: Low lung volumes. Bibasilar subsegmental atelectasis, LEFT greater than RIGHT.
--- NOTE | 2025-03-28 10:58 | ED_ITS ---
HPI - Weakness 2 General: Chief complaint: Weakness Stated complaint: nose bleeds, legs leaking fluid Time Seen by Provider: 03/28/25 10:45 Source: patient Mode of arrival: ambulatory Limitations: no limitations History of Present Illness: 64-year-old female who has a history of pulmonary embolism she is on Eliquis she has had a history of leg swelling as well as on Lasix 20 mg a day. States she been having increased swelling to her legs over the last few weeks and they have been weeping. She denies any increased pain denies any increased shortness of breath or chest pain. She has had some generalized weakness. Associated symptoms: Denies chest pain, chills, fever(s), headache(s), nausea or vomiting Review of Systems 2 Const: Reports: fatigue; Denies: fever(s), chills, body aches or change in appetite Eyes: Denies: blurry vision or eye discomfort ENMT: Denies: throat pain or dental pain Card: Denies: chest pain Resp: Denies: dyspnea GI: Denies: abdominal pain, nausea, vomiting or diarrhea Musc: Reports: extremity swelling; Denies: neck pain or back pain Skin/Breast: Denies: rash Neuro: Denies: headache(s) PFSH ED 2 PFSH: Medical History Right lower lobe pneumonia Pleural effusion, right COVID-19 vaccine administered Seropositive rheumatoid arthritis of multiple sites Osteoporosis 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 High risk medication use Immunization counseling Rheumatoid arthritis with rheumatoid factor Leg cramps Surgical History Status post kyphoplasty H/O video-assisted thoracoscopic surgery (VATS) History of hysterectomy Family History Other Arthritis Denies family history of Rheumatoid arthritis Lupus Social History Smoking and tobacco/nicotine status: former use of tobacco/nicotine Physical Exam 2 Const: COMMON NORMALS: patient oriented x3 HENMT: COMMON NORMALS: normocephalic and atraumatic HEAD & SCALP: n ormocephalic and atraumatic Eye: COMMON NORMALS: conjunctivae normal CONJUNCTIVA: Yes conjunctivae normal Neck/C-Spine: COMMON NORMALS: full ROM and supple Chest: COMMONS NORMALS: normal inspection of the chest Resp: COMMON NORMALS: normal respiratory effort, No retractions, No use of accessory muscles and clear to auscultation bilaterally AUSCULTATION: clear to auscultation bilaterally Cardio: COMMON NORMALS: regular rhythm and No murmurs present (Cardio) R ATE: tachycardic RHYTHM: regular rhythm GI: COMMON NORMALS: Normal to inspection, nondistended, normoactive bowel sounds present, Soft to palpation, non-tender and no masses PALPATION: Yes Soft to palpation Extremity: NARRATIVE EXTREMITY EXAM: 2+ edema to lower extremities Neuro: COMMON NORMALS: patient oriented x3, moves all extremities and no focal motor deficits Psych: COMMON NORMALS: mental status grossly normal, Normal thought process present and cooperative THOUGHT PROCESS: Normal thought process present Skin: COMMON NORMALS: no rashes or lesions noted and no wounds GENERAL SKIN EXAM: no rashes or lesions noted Course 2 Vital Signs: Vital signs: Vital Signs Temperature 98.2 F 03/28/25 10:43 Pulse Rate 96 03/28/25 12:00 Respiratory Rate 16 03/28/25 10:43 Blood Pressure 103/73 03/28/25 12:00 Pulse Oximetry 98 03/28/25 12:00 Oxygen Delivery Me thod Nasal Cannula 03/28/25 12:00 Oxygen Flow Rate 3 03/28/25 12:00 MDM - Weakness Medical Decision Making Patient presents for lower extremity edema did give her IV Lasix here will increase her Lasix at home from 20-40 she has to follow-up with PCP return if worsening she understands agrees to plan. Medical Records I reviewed the patient's medical records. Lab Data I reviewed the patient's lab results. 03/28/25 11:41 03/28/25 11:41 Radiology Impressions Chest X-Ray 03/28/25 10:50 IMPRESSION: Low lung volumes. Bibasilar subsegmental atelectasis, LEFT greater than RIGHT. Laboratory Results WBC 9.70 10^3/uL (3.29-11.43) 03/28/25 11:41 RBC 3.97 10^6/uL (3.85-5.65) 03/28/25 11:41 Hgb 11.60 g/dL (11.27-16.99) 03/28/25 11:41 Hct 39.8 % (36-47) 03/28/25 11:41 MCV 100.3 fl (85-98) H 03/28/25 11:41 MCH 29.2 pg (27-33) 03/28/25 11:41 MCHC 29.1 g/dL (30-55) L 03/28/25 11:41 RDW 14.6 % (12.1-15.1) 03/28/25 11:41 Plt Count 320 10^3/cmm (157-399) 03/28/25 11:41 MPV 9.7 fL (7.4-10.4) 03/28/25 11:41 Neut % (Auto) 72.4 % 03/28/25 11:41 Lymph % (Auto) 18.0 % 03/28/25 11:41 Harmon % (Auto) 8.8 % 03/28/25 11:41 Eos % (Auto) 0.1 % 03/28/25 11:41 Baso % (Auto) 0.2 % 03/28/25 11:41 Neut # (Auto) 7.02 10^3/uL (1.8-7.7) 03/28/25 11:41 Lymph # (Auto) 1.8 10^3/uL (0.8-4.8) 03/28/25 11:41 Harmon # (Auto) 0.9 10^3/uL (0.2-0.9) 03/28/25 11:41 Eos # (Auto) 0.0 10^3/uL (0.0-0.8) 03/28/25 11:41 Baso # (Auto) 0.0 10^3/uL (0.0-0.1) 03/28/25 11:41 Nucleated RBC % (auto) 0 % 03/28/25 11:41 Nucleated RBCs # 0.0 /100WBC 03/28/25 11:41 PT 13.70 SECONDS (12.1-14.9) 03/28/25 11:41 INR 0.98 (0.8-1.2) 03/28/25 11:41 Sodium 139 mmol/L (136-145) 03/28/25 11:41 Potassium 3.8 mmol/L (3.5-5.1) 03/28/25 11:41 Chloride 101 mmol/L (98-107) 03/28/25 11:41 Carbon Dioxide 24 mmol/L (22-29) 03/28/25 11:41 Anion Gap 17.8 (5-19) 03/28/25 11:41 BUN 21 mg/dL (8-23) 03/28/25 11:41 Creatinine 0.9 mg/dL (0.5-0.9) 03/28/25 11:41 GFR Calculation 62.6 mL/min (90-130) L 03/28/25 11:41 Glucose 110 mg/dL (65-115) 03/28/25 11:41 Calculated Osmolality 292 mOsm/kg (285-295) 03/28/25 11:41 Calcium 9.7 mg/dL (8.5-10.5) 03/28/25 11:41 Total Bilirubin 0.2 mg/dL (0.15-1.2) 03/28/25 11:41 AST 15 U/L (0-32) 03/28/25 11:41 ALT 19 U/L (0-33) 03/28/25 11:41 Alkaline Phosphatase 136 U/L (35-105) H 03/28/25 11:41 NT-Pro-B Natriuret Pep 172 pg/mL (0-125) H 03/28/25 11:41 Total Protein 7.8 g/dL (6.6-8.7) 03/28/25 11:41 Albumin 3.8 g/dL (3.5-5.2) 03/28/25 11:41 Globulin 4.0 g/dL (1.3-4.6) 03/28/25 11:41 All radiology interpretation(s) finalized by discharge Discharge Plan Discharge Patient Disposition: Home Clinical Impression: Edema of both lower legs Condition: Stable Prescriptions: New furosemide [Lasix] 40 mg tablet 40 mg PO DAILY Qty: 30 0RF Discontinued furosemide 20 mg tablet 20 mg PO .AM No Action alprazolam 0.25 mg tablet 0.25 mg PO QAM hydroxychloroquine 200 mg tablet 200 mg PO BID Qty: 180 1RF folic acid 1 mg tablet 3 mg PO DAILY Qty: 90 5RF prednisone 5 mg tablet See Rx Instructions PO .COMPLEX PRN (Reason: joint pain flare) Qty: 30 1RF Rx Instructions: take 1-2 tabs daily for 3-7 days prn joint pain flare orally PRN; omeprazole 40 mg capsule,delayed release(DR/EC) See Rx Instructions PO DAILY Qty: 30 3RF Rx Instructions: take 1 capsule in AM 30 minutes before breakfast orally daily; hydrocodone-acetaminophen 5-325 mg tablet 1 - 2 tab PO .Q4-6H PRN (Reason: Pain) fluticasone propionate [Flonase Allergy Relief] 50 mcg/actuation spray,suspension 1 spray intranasal BID PRN (Reason: allergies) Rx Instructions: administer into each nostril multivitamin Tablet 1 tab PO DAILY atorvastatin 40 mg tablet 40 mg PO QPM calcium carbonate-vitamin D3 600 mg-5 mcg (200 unit) Tablet 1 tab PO DAILY citalopram 20 mg tablet 20 mg PO QAM ascorbic acid (vitamin C) [Vitamin C] 500 mg Tablet 500 mg PO DAILY cholecalciferol (vitamin D3) 50 mcg (2,000 unit) capsule 50 mcg PO DAILY metoprolol tartrate 25 mg tablet 25 mg PO BID Eliquis 5 mg Tablet See Rx Instructions .ROUTE .COMPLEX Qty: 74 0RF Rx Instructions: 10 mg(2tabs) twice daily for 7 days, then 5 mg(1 tab) twice daily thereafter Eliquis DVT-PE Treat 30D Start 5 mg (74 tabs) tablets,dose pack See Rx Instructions .ROUTE .COMPLEX Rx Instructions: TAKE BY MOUTH PER PACKAGE directions Discharge Orders: Discharge ED (Routine); Ordered 03/28/25 Ordered By: Kyler Adam Referrals: Cipriano Allred, [Primary Care Provider, Family Practice] - 4-7 days Discharge Diet: Advance as tolerated Discharge Activity: Resume usual activity Patient Instructions: Leg Edema (ED) Print Language: Upper Sorbian Coding Level of Care Code ED Mid Level Project Manager for Chg Fwd Related Data Home Medications ?Medication ?Instructions ?Recorded ?Confirmed alprazolam 0.25 mg tablet 0.25 mg PO QAM anxiety 06/2803/03/25 ascorbic acid (vitamin C) 500 mg 500 mg PO DAILY 11/1803/03/25 tablet (Vitamin C) atorvastatin 40 mg tablet 40 mg PO QPM 11/18/23 calcium 600 mg (as 1 tab PO DAILY 11/18/2312/27 carbonate)-vitamin D3 5 mcg (200 unit) tablet cholecalciferol (vitamin D3) 50 50 mcg PO DAILY 03/03/25 mcg (2,000 unit) capsule citalopram 20 mg tablet 20 mg PO QAM 11/18/23 multivitamin 1 tab PO DAILY 11/18/2312/27 metoprolol tartrate 25 mg tablet 25 mg PO BID 09/27/24 03/03/25 apixaban 5 mg (74 tabs) tablets in See Rx Instructions .Route .COMPLEX 02/25/25 03/03/25 a dose pack ([employer] DVT-PE Treat 30D Start) fluticasone propionate 50 1 spray intranasal BID PRN 0 03/03/25 03/03/25 mcg/actuation nasal allergies spray,suspension (Flonase Allergy Relief) hydrocodone 5 mg-acetaminophen 325 1 - 2 tab PO .Q4-6H PRN Pain 03/03/25 03/03/25 mg tablet Previous Rx's ?Medication ?Instructions ?Recorded folic acid 1 mg tablet 3 mg (3 x 1 mg) PO DAILY #90 tabs 11/24/24 hydroxychloroquine 200 mg tablet 200 mg PO BID #180 ta bs 02/09/25 Held on 02/21/25. Instructions: Resume on 03/07/25. until you see pmd apixaban 5 mg tablet (Eliquis) See Rx Instructions .Ro [place] 02/21/25 .COMPLEX #74 tabs prednisone 5 mg tablet See Rx Instructions PO .COMP VICENTE 03/01/25 PRN joint pain flare #30 tabs omeprazole 40 mg capsule,delayed See Rx Instructions P O DAILY #30 03/14/25 release caps furosemide 40 mg tablet (Lasix) 40 mg PO DAILY #30 tab s 03/28/25 Allergies Allergy/AdvReac Type Severity Reaction Status Date / Time No Known Allergies Allergy Verified 02/10/25 09:45
[2025-03-28] MEDS: FUROsemide 10 mg/mL SDV 10mL 60 MG IVP (11:24)
[2025-03-28 11:25] VITALS: PULSE 104; O2SAT 100
[2025-03-28 11:47] LABS: Basophils % 0.2 %; Eosinophils % 0.1 %; Hematocrit 39.8 % (36-47); Lymphocytes # 1.8 10^3/uL (0.8-4.8); Mean Corpuscular HGB Conc 29.1 g/dL (30-55); Mean Corpuscular Hemoglobin 29.2 pg (27-33); Mean Corpuscular Volume 100.3 fl (85-98); Mean Platelet Volume 9.7 fL (7.4-10.4); Monocytes # 0.9 10^3/uL (0.2-0.9); Monocytes % 8.8 %; Neutrophils # 7.02 10^3/uL (1.8-7.7); Neutrophils % 72.4 %; Nucleated Red Blood Cells % 0 %; Platelet Count 320 10^3/cmm (157-399); Red Blood Count 3.97 10^6/uL (3.85-5.65); Red Cell Distribution Width 14.6 % (12.1-15.1)
--- NOTE | 2025-03-28 11:50 | ECG_ITS ---
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
[2025-03-28 11:56] VITALS: BP 125/64; PULSE 96; O2SAT 100
[2025-03-28 12:00] VITALS: BP 103/73; PULSE 96; O2SAT 98
[2025-03-28 12:04] LABS: INR 0.98 (0.8-1.2)
[2025-03-28 12:20] LABS: Alanine Aminotransferase 19 U/L (0-33); Albumin Level 3.8 g/dL (3.5-5.2); Alkaline Phosphatase 136 U/L (35-105); Anion Gap 17.8 (5-19); Aspartate Amino Transferase 15 U/L (0-32); Blood Urea Nitrogen 21 mg/dL (8-23); Calcium 9.7 mg/dL (8.5-10.5); Carbon Dioxide 24 mmol/L (22-29); Chloride 101 mmol/L (98-107); Glomerular Filtration Rate 62.6 mL/min (90-130); Glucose 110 mg/dL (65-115); NT Pro B Type Natriuretic Pept 172 pg/mL (0-125); Osmolality Calculated 292 mOsm/kg (285-295); Potassium 3.8 mmol/L (3.5-5.1); Sodium 139 mmol/L (136-145); Total Bilirubin 0.2 mg/dL (0.15-1.2); Total Protein 7.8 g/dL (6.6-8.7)
[2025-03-28 12:30] VITALS: BP 155/99; PULSE 95; O2SAT 100
--- NOTE | 2025-03-28 13:17 | PC.NURSE ---
Pt upon being discharged asked for pain pills This nurse asked as to why, pt stated I have real bad back pain Pt states she is out of her hydrocodone pills that were for her back surgery. Dr. Adam voiced pt needs to f/u with pcp for pain management, pt educated on use of otc meds, hot pack, ice pack, ect, pt then states I'm not addicted. I really do have back pain. Dr. Allred won't give me anything for pain. Pt dc instructions went over with pt, pt ambulated out with steady gait.
[2025-03-28 13:20] VITALS: BP 155/99; PULSE 100; O2SAT 100
== END 2025-03-28 13:21 | disposition home or self-care (01) ==
PROVIDERS: Emergency Provider Emergency Medicine; PCP Electrodiagnostic Medicine
DX: R60.0 Localized edema (principal); M05.79 Rheumatoid arthritis with rheumatoid factor of multiple sites without organ or systems involvement; Z86.711 Personal history of pulmonary embolism; Z79.01 Long term (current) use of anticoagulants; Z79.899 Other long term (current) drug therapy; Z87.891 Personal history of nicotine dependence
CPT/HCPCS: 36415; 71045; 80053; 83880; 85025; 85610; 93005; 96374; 99285; J1938

== ENCOUNTER 2025-03-30 18:05 | Emergency (ER) | payer MEDICARE, OTHER, SELFPAY ==
--- NOTE | 2025-03-30 18:07 | ECG_ITS ---
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 Measurements Intervals [place] Rate: 83 P: 31 [place]: 134 QRS: -36 QRSD: 82 T: 9 QT: 293 QTc: 346 Interpretive Statements SINUS RHYTHM LEFT AXIS DEVIATION [QRS AXIS < -30] POSSIBLE ANTERIOR MYOCARDIAL INFARCTION , OF INDETERMINATE AGE [30 ms Q WAVE IN V3/V4, OR R < 0.2 mV IN V4] Compared to ECG 03/28/2025 11:50:03 Left-axis deviation now present Sinus tachycardia no longer present Myocardial infarct finding still present Electronically Signed On 04-04-2025 11:49:08 CDT by Carlos Randolph M.D. [email or web address] [id number]
[2025-03-30 18:12] VITALS: BP 128/80; PULSE 86; RESP 19; TEMP 36.4; O2SAT 96; BMI 33.3
[2025-03-30 23:51] VITALS: BP 145/75; PULSE 89; RESP 16; O2SAT 95
--- NOTE | 2025-03-30 23:56 | XRR_ITS ---
PROCEDURE INFORMATION: Exam: XR Chest Exam date and time: 03/30/2025 11:57 PM Age: 64 years old Clinical indication: Chest pressure; Prior surgery; Surgery date: 6+ months; Surgery type: Thoracoscopy; C/O chest pain; Additional info: Chest pain with breathing TECHNIQUE: Imaging protocol: Radiologic exam of the chest. Views: 1 view. COMPARISON: CR XR chest 1V portable [id number] 03/28/2025 10:54 AM FINDINGS: Lungs: Stable linear scarring in the right and left lower lobes. No focal consolidation. No pulmonary edema. Pleural spaces: No pleural effusion. No pneumothorax. Heart/Mediastinum: Stable moderate enlargement of the cardiac silhouette. Mediastinal contours are unremarkable. Vasculature: Stable vascular calcifications in the aorta. Bones/joints: Unremarkable for age. XR/XR chest 1V portable [id number] IMPRESSION: 1. No acute cardiopulmonary process. 2. Incidental/nonacute findings are listed in the report.
--- NOTE | 2025-03-30 23:56 | ECG_ITS ---
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 Measurements Intervals [place] Rate: 89 P: 50 MD: 137 QRS: -40 QRSD: 81 T: 19 QT: 354 QTc: 432 Interpretive Statements SINUS RHYTHM LEFT AXIS DEVIATION [QRS AXIS < -30] LOW QRS VOLTAGE IN PRECORDIAL LEADS [QRS DEFLECTION < 1.0 mV IN CHEST LEADS] POSSIBLE ANTERIOR MYOCARDIAL INFARCTION , PROBABLY OLD [30 ms Q WAVE IN V3/V4, OR R < 0.2 mV IN V4] Compared to ECG 03/30/2025 18:09:58 Low QRS voltage now present Myocardial infarct finding still present Electronically Signed On 04-04-2025 11:48:00 CDT by Carlos Randolph M.D. [id number] [id number]
--- NOTE | 2025-03-30 23:56 | XRR_ITS ---
PROCEDURE INFORMATION: Exam: XR Right Knee Exam date and time: 03/31/2025 12:04 AM Age: 64 years old Clinical indication: Right; C/O persistent RT knee pain after ground level fall earlier today. ; Additional info: Injury TECHNIQUE: Imaging protocol: Radiologic exam of the right knee. Views: 1 or 2 views. COMPARISON: [place] [id number] 02/17/2025 5:50 PM FINDINGS: Bones/joints: No acute fracture. No dislocation. Bones are mildly osteopenic. No joint effusion. Small osteophytes at the patellofemoral compartment and tibial spines. Soft tissues: No soft tissue swelling/emphysema. No radiopaque foreign body. XR/XR knee RT 1-2V [id number] IMPRESSION: 1. No acute fracture of the right knee. Followup radiographs recommended in 7-14 days if clinical concern for fracture persists. 2. Incidental/nonacute findings are listed in the report.
--- NOTE | 2025-03-31 00:33 | ED_ITS ---
HPI - Fall General: Chief Complaint: Fall Stated Complaint: CP Fall R knee pain Time Seen by Provider: 03/30/25 23:47 History of Present Illness: Patient is a 64-year-old female from home where she lives alone seen for fall and dyspnea on exertion. She states that she used to walk 4 miles a day and now has trouble getting around her house without feeling extremely short of breath. She notices that her legs are swelling up and she has trouble laying flat. She currently takes 40 mg Lasix every day but drinks 8 bottles of water in addition to the a full DrLiliana Crooks every day. She notices that her weight is rising. She fell today striking her right knee and was unable to get up without help. she is now able to move the knee with minimal pain. She also complains of profound shortness of breath with exertion. She also has some chronic abdominal pain which she states is unchanged by the fall today. Related Data Home Medications ?Medication ?Instructions ?Recorded ?Confirmed alprazolam 0.25 mg tablet 0.25 mg PO QAM anxiety 06/2803/03/25 ascorbic acid (vitamin C) 500 mg 500 mg PO DAILY 11/1803/03/25 tablet (Vitamin C) atorvastatin 40 mg tablet 40 mg PO QPM 11/18/23 calcium 600 mg (as 1 tab PO DAILY 11/18/2312/27 carbonate)-vitamin D3 5 mcg (200 unit) tablet cholecalciferol (vitamin D3) 50 50 mcg PO DAILY 03/03/25 mcg (2,000 unit) capsule citalopram 20 mg tablet 20 mg PO QAM 11/18/23 multivitamin 1 tab PO DAILY 11/18/2312/27 metoprolol tartrate 25 mg tablet 25 mg PO BID 09/27/24 03/03/25 apixaban 5 mg (74 tabs) tablets in See Rx Instructions .Route .COMPLEX 02/25/25 03/03/25 a dose pack (Eliquis DVT-PE Treat 30D Start) fluticasone propionate 50 1 spray intranasal BID PRN 0 03/03/25 03/03/25 mcg/actuation nasal allergies spray,suspension (Flonase Allergy Relief) hydrocodone 5 mg-acetaminophen 325 1 - 2 tab PO .Q4-6H PRN Pain 03/03/25 03/03/25 mg tablet Previous Rx's ?Medication ?Instructions ?Recorded hydroxychloroquine 200 mg tablet 200 mg PO BID #180 ta bs 02/09/25 Held on 02/21/25. Instructions: Resume on 03/07/25. until you see pmd apixaban 5 mg tablet (Eliquis) See Rx Instructions .Ro [place] 02/21/25 .COMPLEX #74 tabs prednisone 5 mg tablet See Rx Instructions PO .COMP VICENTE 03/01/25 PRN joint pain flare #30 tabs omeprazole 40 mg capsule,delayed See Rx Instructions P O DAILY #30 03/14/25 release caps folic acid 1 mg tablet 3 mg (3 x 1 mg) PO DAILY #90 tabs 03/28/25 furosemide 40 mg tablet (Lasix) 40 mg PO DAILY #30 tab s 03/28/25 Allergies Allergy/AdvReac Type Severity Reaction Status Date / Time No Known Allergies Allergy Verified 02/10/25 09:45 [facility] ED PFSH: Medical History Right lower lobe pneumonia Pleural effusion, right COVID-19 vaccine administered Seropositive rheumatoid arthritis of multiple sites Osteoporosis 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 High risk medication use Immunization counseling Rheumatoid arthritis with rheumatoid factor Leg cramps Surgical History Status post kyphoplasty H/O video-assisted thoracoscopic surgery (VATS) History of hysterectomy Family History Other Arthritis Denies family history of Rheumatoid arthritis Lupus Social History Smoking and tobacco/nicotine status: former use of tobacco/nicotine Physical Exam Const: COMMON NORMALS: no acute distress, patient oriented x3 and alert HENMT: COMMON NORMALS: normocephalic and atraumatic HEAD & SCALP: normocephalic and atraumatic Eye: COMMON NORMALS: Equal, round and reactive pupils present, EOMs intact bilaterally and no scleral icterus PUPIL: Yes Equal, round and reactive pupils present Resp: COMMON NORMALS: normal respiratory effort and No retractions Cardio: COMMON NORMALS: regular rate, regular rhythm and No murmurs present (Cardio) RATE: regular rate RHYTHM: regular rhythm GI: COMMON NORMALS: Normal to inspection, nondistended, normoactive bowel sounds present, Soft to palpation and non-tender PALPATION: Yes Soft to palpation Extremity: NARRATIVE EXTREMITY EXAM: 2+ pitting edema of the bilateral legs t o the mid thigh level. Neuro: COMMON NORMALS: patient oriented x3 SENSORIUM/ORIENTATION: Yes alert Skin: COMMON NORMALS: no rashes or lesions noted GENERAL SKIN EXAM: no rashes or lesions noted Course Vital Signs: Vital signs: Vital Signs Temperature 97.5 F L 03/30/25 18:12 Pulse Rate 85 03/31/25 05:33 Respiratory Rate 16 03/31/25 05:33 Blood Pressure 112/73 03/31/25 05:33 Pulse Oximetry 97 03/31/25 05:33 Oxygen Delivery Me thod Nasal Cannula 03/31/25 02:00 Oxygen Flow Rate 3 03/31/25 02:00 MDM - Fall Medical Decision Making In summary, patient is a generally well-appearing 64-year-old female from home where she lives alone seen for fall. She struck her right knee but there is no evidence of fracture or dislocation on x-ray. BNP is only mildly elevated. She relates that she drinks 8 bottles of water per day and no one has told her that she needs to restrict her water intake. She has pitting edema of the bilateral lower extremities and some orthopnea. She states that she used to be able to walk 4 miles a day but now she can hardly get around the house because of shortness of breath. Oxygen saturation is stable on her normal nasal cannula regimen with no obvious increased work of breathing at rest. We discussed that she would benefit from mild fluid restriction and she will decrease her level of water intake. She already does not ingest significant amounts of salt. I do not suspect any other emergent process warranting further workup at this time. She will be discharged back home in stable and improved condition. Lab Data Radiology Impressions Chest X-Ray 03/30/25 23:56 IMPRESSION: 1. No acute cardiopulmonary process. 2. Incidental/nonacute findings are listed in the report. Knee X-Ray 03/30/25 23:56 IMPRESSION: 1. No acute fracture of the right knee. Followup radiographs recommended in 7-14 days if clinical concern for fracture persists. 2. Incidental/nonacute findings are listed in the report. Laboratory Results NT-Pro-B Natriuret Pep 132 pg/mL (0-125) H 03/31/25 01:28 All radiology interpretation(s) finalized by discharge EKG Data EKG 1: Interpretation: Time?0010?sinus rhythm, rate of 89, no ST segment elevation or depression, no T wave inversions, intervals within normal limits. QTc = 401 Discharge Plan Discharge Patient Disposition: Home Clinical Impression: Fall, Contusion of knee, right Condition: Stable Prescriptions: No Action alprazolam 0.25 mg tablet 0.25 mg PO QAM hydroxychloroquine 200 mg tablet 200 mg PO BID Qty: 180 1RF prednisone 5 mg tablet See Rx Instructions PO .COMPLEX PRN (Reason: joint pain flare) Qty: 30 1RF Rx Instructions: take 1-2 tabs daily for 3-7 days prn joint pain flare orally PRN; omeprazole 40 mg capsule,delayed release(DR/EC) See Rx Instructions PO DAILY Qty: 30 3RF Rx Instructions: take 1 capsule in AM 30 minutes before breakfast orally daily; folic acid 1 mg tablet 3 mg PO DAILY Qty: 90 5RF hydrocodone-acetaminophen 5-325 mg tablet 1 - 2 tab PO .Q4-6H PRN (Reason: Pain) fluticasone propionate [Flonase Allergy Relief] 50 mcg/actuation spray, suspension 1 spray intranasal BID PRN (Reason: allergies) Rx Instructions: administer into each nostril multivitamin Tablet 1 tab PO DAILY atorvastatin 40 mg tablet 40 mg PO QPM calcium carbonate-vitamin D3 600 mg-5 mcg (200 unit) Tablet 1 tab PO DAILY citalopram 20 mg tablet 20 mg PO QAM ascorbic acid (vitamin C) [Vitamin C] 500 mg Tablet 500 mg PO DAILY cholecalciferol (vitamin D3) 50 mcg (2,000 unit) capsule 50 mcg PO DAILY metoprolol tartrate 25 mg tablet 25 mg PO BID Eliquis 5 mg Tablet See Rx Instructions .ROUTE .COMPLEX Qty: 74 0RF Rx Instructions: 10 mg(2tabs) twice daily for 7 days, then 5 mg(1 tab) twice daily thereafter Eliquis DVT-PE Treat 30D Start 5 mg (74 tabs) tablets,dose pack See Rx Instructions .ROUTE .COMPLEX Rx Instructions: TAKE BY MOUTH PER PACKAGE directions furosemide [Lasix] 40 mg tablet 40 mg PO DAILY Qty: 30 0RF Discharge Orders: Discharge ED (Routine); Ordered 03/31/25 Ordered By: Michele Crouch Referrals: Cirpiano Allred DO [Primary Care Provider, [facility]] Discharge Diet: Low Salt Discharge Activity: Increase activity as tolerated Patient Instructions: Fluid Restriction (ED) Print Language: [place] Islander Coding Level of Care Code ED Vacuum Tank Tender for Analy [place]
[2025-03-31 01:00] VITALS: BP 127/74; PULSE 96; RESP 16; O2SAT 96
[2025-03-31 02:00] VITALS: BP 130/70; PULSE 90; RESP 16; O2SAT 94
[2025-03-31 02:04] LABS: NT Pro B Type Natriuretic Pept 132 pg/mL (0-125)
[2025-03-31] MEDS: acetaminophen 325 mg Tablet 650 MG PO (02:10)
[2025-03-31 05:33] VITALS: BP 112/73; PULSE 85; RESP 16; O2SAT 97
== END 2025-03-31 05:35 | disposition home or self-care (01) ==
PROVIDERS: Emergency Provider Student in an Organized Health Care Education/Training Program; PCP Electrodiagnostic Medicine
DX: S80.01XA Contusion of right knee, initial encounter (principal); W19.XXXA Unspecified fall, initial encounter; Z79.01 Long term (current) use of anticoagulants; Z87.891 Personal history of nicotine dependence; R06.00 Dyspnea, unspecified
CPT/HCPCS: 36415; 71045; 73560; 83880; 93005; 99285; J9999

== ENCOUNTER 2025-05-15 13:35 | Outpatient (RCR) | payer MEDICARE, OTHER, SELFPAY | END 2025-06-01 23:59 | disposition home or self-care (01) | LOC: SPT 13:35 | PROVIDERS: PCP Electrodiagnostic Medicine; Visit Provider Electrodiagnostic Medicine | DX: R53.1 Weakness (principal) | CPT/HCPCS: 97110; 97162; 97530 ==

== ENCOUNTER 2025-06-02 05:00 | Outpatient (RCR) | payer MEDICARE, OTHER, SELFPAY | END 2025-07-02 23:59 | disposition home or self-care (01) | LOC: SPT 05:00 | PROVIDERS: PCP Electrodiagnostic Medicine; Visit Provider Electrodiagnostic Medicine | DX: R53.1 Weakness (principal) | CPT/HCPCS: 97110; 97530 ==

== ENCOUNTER → 2025-06-08 11:00 | Outpatient (BNVA) | payer MEDICARE, OTHER, SELFPAY | PROVIDERS: PCP Electrodiagnostic Medicine; Visit Provider Internal Medicine Rheumatology | DX: M05.79 Rheumatoid arthritis with rheumatoid factor of multiple sites without organ or systems involvement (principal); M81.0 Age-related osteoporosis without current pathological fracture; Z79.899 Other long term (current) drug therapy; Z71.85 Encounter for immunization safety counseling | CPT/HCPCS: 99214 ==

== ENCOUNTER → 2025-06-20 11:39 | Outpatient (BNVA) | payer MEDICARE, OTHER, SELFPAY | PROVIDERS: PCP Electrodiagnostic Medicine; Visit Provider Emergency Medicine | DX: R05.9 Cough, unspecified (principal) | CPT/HCPCS: 87426 ==

== ENCOUNTER 2025-07-03 05:00 | Outpatient (RCR) | payer MEDICARE, SELFPAY | END 2025-07-26 15:34 | disposition home or self-care (01) | LOC: SPT 05:00 | PROVIDERS: PCP Electrodiagnostic Medicine; Visit Provider Electrodiagnostic Medicine | DX: R53.1 Weakness (principal) | CPT/HCPCS: 97110; 97530 ==

== ENCOUNTER → 2025-08-01 09:03 | Outpatient (BNVA) | payer MEDICARE, OTHER, SELFPAY | PROVIDERS: PCP Electrodiagnostic Medicine; Visit Provider Nurse Practitioner Family | DX: D69.2 Other nonthrombocytopenic purpura (principal); L57.8 Other skin changes due to chronic exposure to nonionizing radiation; D22.5 Melanocytic nevi of trunk; M06.9 Rheumatoid arthritis, unspecified; D84.9 Immunodeficiency, unspecified; D48.5 Neoplasm of uncertain behavior of skin | CPT/HCPCS: 11102; 99213 ==

== ENCOUNTER 2025-10-23 10:12 | Outpatient (CLI) | payer MEDICARE, OTHER, SELFPAY ==
[2025-10-23 10:37] VITALS: PULSE 88; RESP 18; O2SAT 92
== END 2025-10-23 10:13 | disposition home or self-care (01) ==
PROVIDERS: PCP Electrodiagnostic Medicine; Visit Provider Electrodiagnostic Medicine
DX: J96.11 Chronic respiratory failure with hypoxia (principal); R94.2 Abnormal results of pulmonary function studies
CPT/HCPCS: 94060; 94726; 94729

== ENCOUNTER → 2025-10-30 10:11 | Outpatient (BNVA) | payer MEDICARE, OTHER, SELFPAY | PROVIDERS: PCP Electrodiagnostic Medicine; Visit Provider Nurse Practitioner Family | DX: F42.4 Excoriation (skin-picking) disorder (principal); I87.2 Venous insufficiency (chronic) (peripheral); M06.9 Rheumatoid arthritis, unspecified; L57.8 Other skin changes due to chronic exposure to nonionizing radiation; D22.5 Melanocytic nevi of trunk | CPT/HCPCS: 99214 ==